=== PATIENT | male | born 1965 | race Caucasian/White ===

== ENCOUNTER 2022-02-01 18:09 | Inpatient (IN) | payer MEDICAID, SELFPAY ==
[2022-02-01 18:35] VITALS: BP 180/122; PULSE 88; RESP 16; TEMP 37.2; O2SAT 96; BMI 27.3
--- NOTE | 2022-02-01 19:10 | XRR_ITS ---
PROCEDURE INFORMATION: Exam: XR Chest Exam date and time: 02/01/2022 8:26 PM Age: 56 years old Clinical indication: Angina; Additional info: Cp TECHNIQUE: Imaging protocol: Radiologic exam of the chest. Views: 1 view. COMPARISON: No relevant prior studies available. FINDINGS: Lungs: Unremarkable. No consolidation. Pleural spaces: Unremarkable. No pleural effusion. No pneumothorax. Heart/Mediastinum: Unremarkable. No cardiomegaly. Bones/joints: Unremarkable. XR/XR chest 1V portable [id number] IMPRESSION: No acute findings.
--- NOTE | 2022-02-01 19:10 | ECG_ITS ---
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 Measurements Intervals [place] Rate: 81 P: 42 [place]: 147 QRS: 26 QRSD: 95 T: 7 QT: 322 QTc: 374 Interpretive Statements SINUS RHYTHM NONSPECIFIC T-WAVE ABNORMALITY INTERPRETATION BASED ON A DEFAULT AGE OF 40 YEARS No previous ECG available for comparison Electronically Signed On 02-02-2022 7:11:02 CDT by Wesley Dowd M.D. [id number]
[2022-02-01 20:05] LABS: Basophils # 0.1 10^3/uL (0.0-0.1); Basophils % 0.5 %; Eosinophils # 0.4 10^3/uL (0.0-0.8); Eosinophils % 4.2 %; Hematocrit 51.3 % (42.0-52.0); Hemoglobin 16.8 g/dL (11.7-16.6); Lymphocytes # 2.5 10^3/uL (0.8-4.8); Lymphocytes % 24.5 %; Mean Corpuscular HGB Conc 32.7 g/dL (30.0-36.0); Mean Corpuscular Volume 85.4 fl (80-94); Mean Platelet Volume 9.7 fL (7.4-10.4); Monocytes # 0.8 10^3/uL (0.2-0.9); Monocytes % 7.5 %; Neutrophils # 6.43 10^3/uL (1.8-7.7); Nucleated Red Blood Cells % 0 %; Platelet Count 298 10^3/cmm (130-400); Red Blood Count 6.01 10^6/uL (4.1-5.3); Red Cell Distribution Width 12.3 % (12.1-15.1); White Blood Count 10.2 10^3/uL (4.0-10.0)
[2022-02-01 20:10] VITALS: BP 183/135; PULSE 85; RESP 24; O2SAT 95
--- NOTE | 2022-02-01 20:23 | W.ED.CHESTPA ---
HPI - Chest Pain General: Chief Complaint: Chest Pain Stated Complaint: High BP-sent by dr Time Seen by Provider: 02/01/22 19:57 Course Vital Signs: Vital signs: Vital Signs Temperature 98.9 F 02/01/22 18:35 Pulse Rate 85 02/01/22 20:10 Respiratory Rate 24 H 02/01/22 20:10 Blood Pressure 183/135 02/01/22 20:10 Pulse Oximetry 95 02/01/22 20:10 Oxygen Delivery Me thod 02/01/22 20:10 MDM - Chest Pain Lab Data : 02/01/22 19:50 02/01/22 19:50 Laboratory Results WBC 10.2 10^3/uL (4.0-10.0) H 02/01/22 19:50 RBC 6.01 10^6/uL (4.1-5.3) H 02/01/22 19:50 Hgb 16.8 g/dL (11.7-16.6) H 02/01/22 19:50 Hct 51.3 % (42.0-52.0) 02/01/22 19:50 MCV 85.4 fl (80-94) 02/01/22 19:50 MCH 28.0 pg (28.0-34.0) 02/01/22 19:50 MCHC 32.7 g/dL (30.0-36.0) 02/01/22 19:50 RDW 12.3 % (12.1-15.1) 02/01/22 19:50 Plt Count 298 10^3/cmm (130-400) 02/01/22 19:50 MPV 9.7 fL (7.4-10.4) 02/01/22 19:50 Neut % (Auto) 63.0 % 02/01/22 19:50 Lymph % (Auto) 24.5 % 02/01/22 19:50 [place] % (Auto) 7.5 % 02/01/22 19:50 Eos % (Auto) 4.2 % 02/01/22 19:50 Baso % (Auto) 0.5 % 02/01/22 19:50 Neut # (Auto) 6.43 10^3/uL (1.8-7.7) 02/01/22 19:50 Lymph # (Auto) 2.5 10^3/uL (0.8-4.8) 02/01/22 19:50 [place] # (Auto) 0.8 10^3/uL (0.2-0.9) 02/01/22 19:50 Eos # (Auto) 0.4 10^3/uL (0.0-0.8) 02/01/22 19:50 Baso # (Auto) 0.1 10^3/uL (0.0-0.1) 02/01/22 19:50 Nucleated RBC % (auto) 0 % 02/01/22 19:50 Nucleated RBCs # 0.0 /100WBC 02/01/22 19:50 Discharge Plan Discharge Condition: Stable Prescriptions: No Action Advil 200 mg Tablet 800 mg PO Q6H PRN (Reason: Pain) Referrals: Joellen Dash PA-C [Primary Care Provider] - Coding Level of Care Code ED Demo Specialist for Concepcion Santiago
[2022-02-01] MEDS: amlodipine 10 mg Tablet PO (20:32)
[2022-02-01 20:37] LABS: Anion Gap 14.4 (5-19); Blood Urea Nitrogen 15 mg/dL (6-20); Calcium 9.7 mg/dL (8.5-10.5); Carbon Dioxide 25 mmol/L (22-29); Chloride 102 mmol/L (98-107); Glomerular Filtration Rate 77.9 mL/min (90-130); Glucose 98 mg/dL (65-115); Osmolality Calculated 285 mOsm/kg (285-295); Potassium 4.4 mmol/L (3.5-5.1); Sodium 137 mmol/L (136-145)
--- NOTE | 2022-02-01 20:37 | ED_ITS ---
HPI - General Adult General: Chief complaint: Chest Pain Stated complaint: High BP-sent by Time Seen by Provider: 02/01/22 19:57 History of Present Illness: Patient is a 56-year-old male with history of uncontrolled high blood pressure presenting to emergency room with intermittent chest pain for the last 2 weeks. Patient tells me last episode chest pain was on Tuesday when he was outside cutting trees. He tells me that he felt very lightheaded having crushing chest pain lasting for 45 minutes at a time associated with diaphoresis. Patient denies any nausea or vomiting, loss of consciousness or other focal complaints. Patient says the pain is not present when she is at rest. Patient denies smoking, family history of cardiac diseases, shortness of breath, exertional dyspnea or pleuritic chest pain. Patient also had, cough fever yesterday night. Patient was seen earlier today in urgent care for clinic and was told to come to the emergency room for further evaluation. In addition, patient was found to have severely elevated blood pressure. Patient tells me that he does not currently take any medication. Onset: 2 weeks ago Duration:2 weeks Location:home Severity: severe Associated symptoms: Reports chest pain; Deny dyspnea, nausea, rash, palpitations or vomiting Review of Systems Const: Denies: fever(s) or chills Eyes: Denies: change in vision ENMT: Denies: mouth pain Card: Reports: chest pain; Denies: palpitations Resp: Denies: dyspnea or non-productive cough GI: Denies: abdominal pain, nausea, vomiting or diarrhea : Denies: dysuria Musc: Denies: extremity pain Skin/Breast: Denies: rash or new lesions Neuro: Denies: weakness in extremities Psych: Reports: other (Normal mood) Fabian/Lymph: Denies: easy bruising PFS ED PFSH: Medical History Hypertension Social History Smoking and tobacco status: never smoked Alcohol intake: never Substance/Drug Use: never Physical Exam Const: COMMON NORMALS: alert HENMT: COMMON NORMALS: atraumatic HEAD & SCALP: atraumatic MOUTH: moist mucous membranes not abnormal Eye: COMMON NORMALS: EOMs intact bilaterally and conjunctivae normal CONJUNCTIVA: Yes conjunctivae normal Neck/C-Spine: COMMON NORMALS: full ROM and supple Resp: COMMON NORMALS: normal respiratory effort and clear to auscultation bilaterally AUSCULTATION: clear to auscultation bilaterally Cardio: COMMON NORMALS: regular rate RATE: regular rate OTHER: 2+ radial pulses b/l GI: COMMON NORMALS: Soft to palpation and non-tender PALPATION: Yes Soft to palpation OTHER: No focal TTP. NO guarding rebound, guarding, rigidity. No CVA tenderness to percussion. Neg Brito/Neg McBurney's point tenderness, no suprabupic tenderness to palpation. Extremity: COMMON NORMALS: full ROM Neuro: SENSORIUM/ORIENTATION: Yes alert MOTOR EXAM: No Abnormal motor strength present and Other motor observations present (no focal motor deficits) Psych: COMMON NORMALS: speech normal SPEECH: Yes normal speech MOOD & AFFECT: Yes euthymic mood Course Vital Signs: Vital signs: Vital Signs Temperature 98.9 F 02/01/22 18:35 Pulse Rate 85 02/01/22 20:10 Respiratory Rate 24 H 02/01/22 20:10 Blood Pressure 183/135 02/01/22 20:10 Pulse Oximetry 95 02/01/22 20:10 Oxygen Delivery Me thod 02/01/22 20:10 MDM - General Adult Medical Decision Making 56-year-old male with history of uncontrolled high blood pressure presenting to the emergency room for evaluation of shortness of breath, cough in the setting of chest pain in the last 2 weeks. Physical exam, patient is noted to have significantly elevated blood pressure 185/137. Rest of exam within normal limit. EKG is nonischemic. Initial troponin of 129. Patient is currently chest pain- free. Will evaluate for dissection. Patient received 10 mg amlodipine, 10 mg of hydralazine, aspirin with improvement in blood pressure. Patient is not complaining of chest pain. No other signs of endorgan damage. Creatinine w ithin normal limit. Patient will be admitted to hospital for hypertensive emergency and NSTEMI. CT is negative for any dissection. Patient received ASA and lovenox in the ED. Disposition: admission Lab Data : 02/01/22 19:50 02/01/22 19:50 Radiology Impressions Chest X-Ray 02/01/22 19:10 IMPRESSION: No acute findings. Laboratory Results WBC 10.2 10^3/uL (4.0-10.0) H 02/01/22 19:50 RBC 6.01 10^6/uL (4.1-5.3) H 02/01/22 19:50 Hgb 16.8 g/dL (11.7-16.6) H 02/01/22 19:50 Hct 51.3 % (42.0-52.0) 02/01/22 19:50 MCV 85.4 fl (80-94) 02/01/22 19:50 MCH 28.0 pg (28.0-34.0) 02/01/22 19:50 MCHC 32.7 g/dL (30.0-36.0) 02/01/22 19:50 RDW 12.3 % (12.1-15.1) 02/01/22 19:50 Plt Count 298 10^3/cmm (130-400) 02/01/22 19:50 MPV 9.7 fL (7.4-10.4) 02/01/22 19:50 Neut % (Auto) 63.0 % 02/01/22 19:50 Lymph % (Auto) 24.5 % 02/01/22 19:50 [place] % (Auto) 7.5 % 02/01/22 19:50 Eos % (Auto) 4.2 % 02/01/22 19:50 Baso % (Auto) 0.5 % 02/01/22 19:50 Neut # (Auto) 6.43 10^3/uL (1.8-7.7) 02/01/22 19:50 Lymph # (Auto) 2.5 10^3/uL (0.8-4.8) 02/01/22 19:50 [place] # (Auto) 0.8 10^3/uL (0.2-0.9) 02/01/22 19:50 Eos # (Auto) 0.4 10^3/uL (0.0-0.8) 02/01/22 19:50 Baso # (Auto) 0.1 10^3/uL (0.0-0.1) 02/01/22 19:50 Nucleated RBC % (auto) 0 % 02/01/22 19:50 Nucleated RBCs # 0.0 /100WBC 02/01/22 19:50 Sodium 137 mmol/L (136-145) 02/01/22 19:50 Potassium 4.4 mmol/L (3.5-5.1) 02/01/22 19:50 Chloride 102 mmol/L (98-107) 02/01/22 19:50 Carbon Dioxide 25 mmol/L (22-29) 02/01/22 19:50 Anion Gap 14.4 (5-19) 02/01/22 19:50 BUN 15 mg/dL (6-20) 02/01/22 19:50 Creatinine 1.0 mg/dL (0.7-1.2) 02/01/22 19:50 GFR Calculation 77.9 mL/min (90-130) L 02/01/22 19:50 Glucose 98 mg/dL (65-115) 02/01/22 19:50 Calculated Osmolality 285 mOsm/kg (285-295) 02/01/22 19:50 Calcium 9.7 mg/dL (8.5-10.5) 02/01/22 19:50 Troponin T Baseline 123 ng/L (0-15) H* 02/01/22 19:50 SARS-CoV-2 Ag (Rapid) Negative (Negative) 02/01/22 20:34 Imaging Data Other Imaging: Radiologist's impression: [email or web address] [address] XRay Report Signed Patient: Anant Rowland Unit #: [id number] : 1965 Age/Sex: 56 / M ADM Date: 02/01/22 Loc: ER Room/Bed: Attending Dr: Ordering Provider/Ordering MD: Nvaid Harris MD Date of Service: 02/01/22 Procedure(s): XR chest 1V portable [id number] Accession Number(s): [id number] Report Number: [id number] PROCEDURE INFORMATION: Exam: XR Chest Exam date and time: 02/01/2022 8:26 PM Age: 56 years old Clinical indication: Angina; Additional info: Cp TECHNIQUE: Imaging protocol: Radiologic exam of the chest. Views: 1 view. COMPARISON: No relevant prior studies available. FINDINGS: Lungs: Unremarkable. No consolidation. Pleural spaces: Unremarkable. No pleural effusion. No pneumothorax. Heart/Mediastinum: Unremarkable. No cardiomegaly. Bones/joints: Unremarkable. XR/XR chest 1V portable [id number] IMPRESSION: No acute findings. ? Dictated By: Slick Del Castillo DO Signed By: Slick Del Castillo DO Signed Date/Time: 02/01/222135 DD/ 25 Discharge Plan Discharge Patient Disposition: Admitted As Inpatient Admit Provider: Mary Watts Clinical Impression: Hypertensive emergency, Non-ST elevation WI (NSTEMI) Condition: Stable Coding Level of Care Code ED Foreign Policy Officer for Chg Fwd Exam Comprehensive
[2022-02-01 20:57] LABS: Troponin(5th) Baseline 123 ng/L (0-15)
--- NOTE | 2022-02-01 21:04 | CTR_ITS ---
PROCEDURE INFORMATION: Exam: CTA Chest With Contrast CTA Abdomen and Pelvis With Contrast Exam date and time: 02/01/2022 9:43 PM Age: 56 years old Clinical indication: Abnormal findings; Abnormal diagnostic tests; Other: Elevated troponin; Fever and shortness of breath; Abnormal lab test; Shortness of breath and other: Hypertensive; Patient HX: C/O SOB with fever. Hypertensive on monitor. Elevated baseline troponin of 123. ; Additional info: Chest pain TECHNIQUE: Imaging protocol: Computed tomographic angiography of the chest with contrast. Computed tomographic angiography of the abdomen and pelvis with contrast. 3D rendering (Not supervised by radiologist): MIP and/or 3D reconstructed images were created by the technologist. Radiation optimization: All CT scans at this facility use at least one of these dose optimization techniques: automated exposure control; mA and/or kV adjustment per patient size (includes targeted exams where dose is matched to clinical indication); or iterative reconstruction. Contrast material: OMNI 350; Contrast volume: 95 ml; Contrast route: INTRAVENOUS (IV); COMPARISON: CR (CHEST, ) 02/01/2022 8:26 PM RADIATION DOSE METRICS: Total DLP (mGy-cm): 1612.48 FINDINGS: VASCULATURE: Pulmonary arteries: Normal. No pulmonary emboli. Aorta: No aortic aneurysm. No aortic dissection. Celiac trunk and mesenteric arteries: No occlusion or significant stenosis. Renal arteries: No occlusion or significant stenosis. Right iliac arteries: No occlusion or significant stenosis. Left iliac arteries: No occlusion or significant stenosis. CHEST: Lungs: Bibasilar atelectasis. Pleural spaces: Unremarkable. No pneumothorax. No pleural effusion. Heart: Coronary artery atherosclerotic calcifications. ABDOMEN AND PELVIS: Liver: No mass. Gallbladder and bile ducts: Cholelithiasis. Pancreas: Unremarkable. No mass. No ductal dilation. Spleen: Unremarkable. No splenomegaly. Adrenal glands: Unremarkable. No mass. Kidneys and ureters: Several bilateral renal cysts. Stomach and bowel: Diverticulosis without diverticulitis. Constipation. Appendix: No evidence of appendicitis. Intraperitoneal space: Unremarkable. No free air. No significant fluid collection. Urinary bladder: Unremarkable. No mass. Reproductive: Prostate gland enlarged. Lymph nodes: Scattered prominent mediastinal lymph nodes measuring up to 10 mm short axis, nonspecific. Bones/joints: Unremarkable. No acute fracture. Soft tissues: Unremarkable. CT/CT angio chest abdomen pelvis IMPRESSION: 1. Negative for pulmonary embolus or acute inflammatory process in the abdomen or pelvis. 2. Coronary artery atherosclerotic calcifications. 3. Cholelithiasis. 4. Several bilateral renal cysts. 5. Diverticulosis without diverticulitis. 6. Prostate gland enlarged. 7. Bibasilar atelectasis. 8. Scattered prominent mediastinal lymph nodes measuring up to 10 mm short axis, nonspecific. 9. Constipation. COMMENTS: Consistent with the [employer]'s Incidental Findings Committee white paper (J Am Chirag Radiol 2018): Any incidental renal lesion less than 1 cm or classified as too small to characterize, or any incidental cystic renal lesion characterized as simple-appearing, is likely benign. No follow-up imaging is recommended for these lesions per consensus recommendations based on imaging criteria.
[2022-02-01 21:05] LABS: SARS Covid-2 Antigen Negative (Negative)
[2022-02-01] MEDS: aspirin 325 mg Tablet PO (21:10)
[2022-02-01] MEDS: hyDRALAzine 20 mg/mL INJ 1 mL 10 MG IVP ×2 (21:10→23:57)
[2022-02-01] MEDS: iohexol 350 mg/mL 100 mL Btl IV (21:49)
[2022-02-01 22:15] VITALS: BP 155/102; PULSE 89; RESP 14; O2SAT 96
[2022-02-01 22:49] LABS: Troponin 5 2HR Delta 2.2 ABS# (0-10)
[2022-02-01 22:50] LABS: Troponin 5 2HR 125.2 ng/L (0-15)
[2022-02-01 22:57] VITALS: BP 195/111; PULSE 78; RESP 17; TEMP 37.1; O2SAT 97
--- NOTE | 2022-02-01 23:10 | P.HP_ITS ---
Providers/Chief Complaint Admitting Physician: Mary Watts MD Primary Care Provider: Joellen Dash Chief Complaint: High BP-sent by History of Present Illness Anant Rowland is a 56 year old male with past medical history of hypertension, not on any medications at home presented to the ER complaining of intermittent chest pain/chest pressure for last 2 weeks. 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 It lasted for few hours and then went away. At that time he checked his blood pressure and it was quite high 190 over something. Later on that week he was staring out her kitchen floor for somebody and he again experienced chest pressure in the middle of his chest substernal area at times radiating to his jaw associated with diaphoresis around the same time. This episode lasted 30 to 40 minutes. He says he has been to urgent care with a cold and having a runny nose today and he was asked to go to the ER for further evaluation. He states him and his family all had COVID last month but since then has not had any other sick contacts. He has never had this kind of chest pain before. Chest pain is not reproducible to palpation. It has been intermittent mostly associated with exertion. He does not really report any gross shortness of breath. Denies family history of cardiac diseases, other medical problems. At this time denies shortness of breath, exertional dyspnea or pleuritic chest pain. He has never had a cardiac work-up before. Denies a history of DVT or PE. present at bedside. He states that she wanted to bring him in sooner but he did not and kept putting it off. At this time he is chest pain-free. Review of systems otherwise negative except noted above in HPI. ED course: Blood pressure on arrival 180/135. Initial troponin 129. Patient was given 10 of amlodipine, 10 mg of hydralazine, aspirin with improvement in blood pressure. Chest x-ray with no acute findings. CTA chest abdomen pelvis has been ordered. It is pending at this time. Denies smoking, or drinking. Lives at home with . Medications/Allergies Home Medications Medication Instructions Recorded Confirmed Last Taken Type ibuprofen 200 mg tablet (Advil) 800 mg PO Q6H PRN Pain 02/01/22 02/01/22 02/01/22 History Allergies Allergy/AdvReac Type Severity Reaction Status Date / Time No Known Allergies Allergy Unverified 02/01/22 20:26 PFSH Acute PFSH: Medical History Hypertension Social History Smoking and tobacco status: never smoked Alcohol intake: never Substance/Drug Use: never Vitals/I&O/Wt Last Vital Signs Temp 98.7 F 02/01/22 22:57 Pulse 78 02/01/22 22:57 Resp 17 02/01/22 22:57 BP 195/111 02/01/22 22:57 Pulse Ox 97 02/01/22 22:57 O2 Del Method 02/01/22 22:15 Weight last 48 hrs Weight 83.915 kg Physical Exam Narrative: General: Alert oriented x3, patient seen sitting up in bed appearing comfortable at this time on room air HEENT: Normocephalic, atraumatic, EOMI, breathing normally Cardio: Regular rate rhythm, normal S1-S2, no JVD Respiratory: Clear to auscultation bilaterally with diminished at bases GI: Abdomen soft, nontender, nondistended, bowel sounds + Behavior: Appropriate and cooperative Extremities: No lower extremity edema noted Data : 02/01/22 19:50 02/01/22 19:50 A&P Assessment and plan (1) Hypertensive emergency: Status: Acute (2) Non-ST elevation RI (NSTEMI): Status: Acute Plan #Hypertensive urgency #Chest pain #NSTEMI #Constipation #Mild leukocytosis - Baseline trop 123, rest pending - We will lower blood pressure gradually. Not to lower more than 25% for 6 hours. - Check hemoglobin A1c, BNP, lipid panel, TSH, procalcitonin ? Start aspirin, Plavix, metoprolol, statin, therapeutic Lovenox - Start lisinopril in AM. - CTA chest abd pelvis ordered in ER is pending at this time. - Check EKG in a.m. - Check echo ? Please consult cardiology in a.m. - Check covid, resp panel - Doc/senna for constipation - Check urine drug screen - Wbc [id number]. Will monitor for now. Possibly due to stress vs. viral infection. Hold off on starting abx at this time.Will check procal Full Code DVT PPX: on therapeutic lovenox Attestations Medical Necessity Statement*: Will Cross > 2 midnight stay for mgmt of hypertensive urgency and NSTEMI. Coding Level of Care Code Acute Locker Room Supervisor for Concepcion Santiago Diagnoses Hypertensive emergency I16.1 Non-ST elevation RI (NSTEMI) I21.4
[2022-02-01] MEDS: enoxaparin 80 mg/0.8 mL Syringe SUBCUT (23:28)
[2022-02-01 23:37] VITALS: PULSE 78; RESP 17; TEMP 37.1; O2SAT 97
[2022-02-01 23:55] VITALS: PULSE 86
[2022-02-02] VITALS (13 sets, daily range): BP systolic 129–155; BP diastolic 83–97; PULSE 65–102; RESP 15–18; TEMP 36.4–37; O2SAT 94–97
--- NOTE | 2022-02-02 01:16 | USCV_ITS ---
Anant Rowland Age: 56 Gender: M : 1965 Exam Date: 02/02/2022 01:34 Ordering Phys: Mary Watts MD Technologist: Exam [place] [facility] [place]: Chest pain, HTN. No history of cardiac intervention per patient BP: 142 / 87 HR: 92 Rhythm: Sinus Technical Quality: Adequate MEASUREMENTS (Male / Female) Normal Values 2D ECHO LV Diastolic Diameter PLAX 4.1 cm 4.2 - 5.9 / 3.9 - 5.3 cm LV Systolic Diameter PLAX 2.5 cm IVS Diastolic Thickness 1.2 cm 0.6 - 1.0 / 0.6 - 0.9 cm IVS Systolic Thickness 1.4 cm LVPW Diastolic Thickness 1.2 cm 0.6 - 1.0 / 0.6 - 0.9 cm LVPW Systolic Thickness 1.6 cm LVOT Diameter 2.0 cm LV Ejection Fraction 2D Teich 70.4 % LV Ejection Fraction MOD 2C 58.5 % LV Ejection Fraction 2C AL 57.8 % LA Diameter 3.5 cm LA Width 3.0 cm LA Height 4.7 cm RA Width 2.4 cm RA Height 4.3 cm Aorta at Sinotubular Diameter 3.1 cm IVC Diameter 1.3 cm M-MODE Aortic Annulus Diameter 3.0 cm LA Ao Ratio MM 1.3 MV E Point Septal Separation 0.3 cm DOPPLER AV Peak Velocity 106.0 cm/s LVOT Peak Velocity 94.0 cm/s AV Area Cont Eq vti 2.9 cm squared AV Area Cont Eq pk 2.6 cm squared MV Area PHT 3.1 cm squared Mitral E to A Ratio 0.6 MV E' Velocity 29.0 cm/s Mitral E to MV E' Ratio 11.4 Mitral E to LV E' Lateral Ratio 11.1 Mitral E to LV E' Septal Ratio 11.9 TR Peak Velocity 265.3 cm/s TR Peak Gradient 28.2 mmHg TV Peak E Velocity 64.0 cm/s Right Atrial Pressure 5.0 mmHg Pulmonary Artery Systolic Pressu 33.2 mmHg PV Peak Velocity 103.0 cm/s RV Acceleration Time 0.1 s RV Ejection Time 0.3 s RV AcT/ET 0.4 FINDINGS Left Ventricle Normal left ventricular size, systolic function and mildly increased wall thickness, with no regional wall motion abnormalities. Left ventricular ejection fraction is estimated at 65 %. Grade I diastolic dysfunction (abnormal relaxation filling pattern), normal to mildly elevated filling pressures. Right Ventricle Normal right ventricular size and systolic function. Right ventricular systolic pressure 32 mmHg. Right Atrium Normal right atrial size. Right atrial pressure estimated at 3 mmHg. Left Atrium Normal left atrial size. Mitral Valve Structurally normal mitral valve. No mitral valve stenosis. No mitral valve regurgitation. Aortic Valve Structurally normal trileaflet aortic valve. No aortic valve stenosis. No aortic valve regurgitation. Tricuspid Valve Structurally normal tricuspid valve. No tricuspid valve stenosis. Trace tricuspid valve regurgitation. Pulmonic Valve Structurally normal pulmonic valve. No pulmonary valve stenosis. No significant pulmonary valve regurgitation. Pericardium No pericardial effusion. Aorta Normal size aortic root and proximal ascending aorta. IVC Normal IVC dimension with >50% respiratory change of the inferior vena cava. CONCLUSIONS 1. Normal left ventricular size, systolic function and mildly increased wall thickness, with no regional wall motion abnormalities. Left ventricular ejection fraction is estimated at 65 %. Grade I diastolic dysfunction (abnormal relaxation filling pattern), normal to mildly elevated filling pressures. 2. Normal right ventricular size and systolic function. 3. Pulmonary artery pressure estimated at 32 mmHg. 4. No significant valvular abnormality. 5. No prior similar studies to compare. Kary Saleh MD (Electronically Signed) Final Date: 02 February 2022 10:51 S
[2022-02-02 01:35] LABS: Estmated Average Glucose 117; Hemoglobin A1C 5.7 % (4.0-6.0)
[2022-02-02 01:43] LABS: NT Pro B Type Natriuretic Pept 237 pg/mL (0-125); Procalcitonin 0.06 ng/mL (0-0.5); Thyroid Stimulating Hormone 1.53 uIU/mL (0.27-4.20)
[2022-02-02] MEDS: famotidine 20 mg/2 mL INJ IVP ×2 (01:45→13:16)
[2022-02-02] MEDS: clopidogrel 300 mg Tablet 600 MG PO (01:45)
[2022-02-02 01:54] LABS: Chol HDL Ratio 5.11 mg/dL (1.0-5.00); Cholesterol 194 mg/dL (0-200); HDL Cholesterol 38 mg/dL (60-100); LDL Cholesterol Calculated 132 mg/dL (50-129); LDL HDL Ratio 3.47 RATIO (0.00-3.22); Triglycerides 119 mg/dL (0-150)
[2022-02-02 02:18] LABS: Basophils # 0.1 10^3/uL (0.0-0.1); Basophils % 0.5 %; Eosinophils # 0.4 10^3/uL (0.0-0.8); Eosinophils % 3.9 %; Hematocrit 49.8 % (42.0-52.0); Hemoglobin 16.6 g/dL (11.7-16.6); Lymphocytes # 3.5 10^3/uL (0.8-4.8); Lymphocytes % 31.8 %; Mean Corpuscular HGB Conc 33.3 g/dL (30.0-36.0); Mean Corpuscular Hemoglobin 28.1 pg (28.0-34.0); Mean Corpuscular Volume 84.3 fl (80-94); Mean Platelet Volume 9.6 fL (7.4-10.4); Monocytes % 9.4 %; Neutrophils # 5.95 10^3/uL (1.8-7.7); Neutrophils % 54.2 %; Nucleated Red Blood Cells % 0 %; Platelet Count 287 10^3/cmm (130-400); Red Blood Count 5.91 10^6/uL (4.1-5.3); Red Cell Distribution Width 12.4 % (12.1-15.1)
--- NOTE | 2022-02-02 02:23 | ECG_ITS ---
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 Measurements Intervals [place] Rate: 86 P: 46 [place]: 158 QRS: 19 QRSD: 101 T: -5 QT: 350 QTc: 419 Interpretive Statements SINUS RHYTHM NONSPECIFIC T-WAVE ABNORMALITY Compared to ECG 02/02/2022 00:01:50 No significant changes Electronically Signed On 02-03-2022 6:39:51 CDT by Riya Angeles M.D. [email or web address]
[2022-02-02 02:37] LABS: Alanine Aminotransferase 23 U/L (0-41); Albumin Level 3.9 g/dL (3.5-5.2); Alkaline Phosphatase 109 IU/L (40-130); Anion Gap 15.8 (5-19); Aspartate Amino Transferase 21 U/L (0-40); Blood Urea Nitrogen 11 mg/dL (6-20); Calcium 9.6 mg/dL (8.5-10.5); Carbon Dioxide 25 mmol/L (22-29); Chloride 100 mmol/L (98-107); Globulin 3.6 g/dL (1.3-4.6); Glomerular Filtration Rate 87.9 mL/min (90-130); Glucose 124 mg/dL (65-115); Osmolality Calculated 285 mOsm/kg (285-295); Potassium 3.8 mmol/L (3.5-5.1); Sodium 137 mmol/L (136-145); Total Bilirubin 0.4 mg/dL (0.15-1.2); Total Protein 7.5 g/dL (6.6-8.7)
[2022-02-02 02:42] LABS: Troponin 5 6HR 151.2 ng/L (0-15); Troponin 5 6HR Delta 28.2 ng/L (0-12)
[2022-02-02] MEDS: acetaminophen 325 mg Tablet 650 MG PO (04:53)
[2022-02-02 04:59] LABS: Add Urine Microscopic? NO; Charge for UA Resulting for Rev
[2022-02-02 05:03] LABS: Bilirubin Urine Neg (Negative); Blood Urine Neg (Negative); Glucose Urine UA Norm (Normal); Ketones Urine Negative (Negative); Leukocyte Esterase Urine Negative (Negative); Nitrate Urine Negative (Negative); Protein Urine Neg (Negative); Specific Gravity, Urine 1.005 (1.005-1.030); Urine Appearance Clear (CLEAR); Urine Color Yellow (Yellow); Urobilinogen Urine 1 mg/dL (Negative); pH Urine 6.5 (5-7)
[2022-02-02 05:09] LABS: Amphetamines Screen Urine Negative (Negative); Barbiturates Screen Urine Negative (Negative); Benzodiazepines Screen Urine Negative (Negative); Cocaine Screen Urine Negative (Negative); Opiate Screen Urine Negative (Negative); PCP Screen Urine Negative (Negative); THC Screen Urine Negative (Negative)
--- NOTE | 2022-02-02 06:03 | ECG_ITS ---
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 Measurements Intervals [place] Rate: 83 P: 25 MT: 156 QRS: 12 QRSD: 92 T: -15 QT: 341 QTc: 403 Interpretive Statements SINUS RHYTHM NONSPECIFIC T-WAVE ABNORMALITY Compared to ECG 02/01/2022 18:33:45 No significant changes Electronically Signed On 02-03-2022 6:38:13 CDT by Riya Angeles M.D. [id number]
[2022-02-02] MEDS: clopidogrel 75 mg Tablet PO (08:32)
[2022-02-02] MEDS: docusate sodium 100 mg Capsule PO ×2 (08:32→17:16)
[2022-02-02] MEDS: aspirin 81 mg EC Tablet PO (08:32)
[2022-02-02] MEDS: metoprolol tartrate 25 mg Tablet PO (08:34)
--- NOTE | 2022-02-02 10:35 | PM.CONSULT ---
Providers/Reason For Consult Consulting Physician/Specialty*: Dr. Saleh, Cardiology Reason for Consult*: Chest pain, elevated troponin Attending Physician: Travis Gasca MD Primary Care Provider: Joellen Dash History of Present Illness History of Present Illness Anant Rowland is a 56 year old male with no h/o [place], stroke, TIA, HLD, DM-2. He is a non smoker/ tobacco chewer and denies any family h/o CAD. He has some kind of lung problem for which he was prescribed inhaler after PFT 6 years back. He also had a stress test 6 years back that was normal. He has known he has high blood pressure but d/t lack of insurance he has not been taking meds/ seeing PCP. He complains of 2 episodes of chest pain that happened with exertion, retrostrenal in location and lasted 3-4 hours. Last episode was Tuesday. He complains of two episodes of fever Tuesday, Tuesday and episode of loose stool. He came to ER for further evaluation. EKG with sinus rhythm and non specific T wave inversion in lead III. Troponin T 123-> 125--> 151. Patient is CP free and echo with normal LV function with no RWMA. BP 180/122 mm Hg on arrival and BP 190/100 with first episode of chest pain a week or so ago. Review of Systems General: Reports: 10 or more systems reviewed and unremarkable except in HPI and below Const: Reports: fever(s); Denies: chills Eyes: Denies: change in vision ENMT: Denies: mouth pain Card: Reports: chest pain; Denies: palpitations Resp: Denies: dyspnea or non-productive cough GI: Reports: diarrhea; Denies: abdominal pain, nausea, vomiting, hematochezia or melena : Denies: dysuria Musc: Denies: extremity pain Skin/Breast: Denies: rash or new lesions Neuro: Denies: weakness in extremities Psych: Reports: other (Normal mood) Fabian/Lymph: Denies: easy bruising Medications/Allergies Home Medications Medication Instructions Recorded Confirmed Last Taken Type ibuprofen 200 mg tablet (Advil) 800 mg PO Q6H PRN Pain 02/01/22 02/01/22 02/01/22 History Allergies Allergy/AdvReac Type Severity Reaction Status Date / Time No Known Allergies Allergy Unverified 02/01/22 20:26 Current Medications Generic Name Dose Route Start Last Admin Trade Name Gavin PRN Reason Stop Dose Admin Acetaminophen 650 mg 02/02/22 01:03 02/02/22 04:53 Acetaminophen 325 Mg Tablet PO 650 mg Q6H PRN Administration Mild/Mod Pain Or Temp >/= 101 Aspirin 81 mg 02/02/22 09:00 02/02/22 08:32 Aspirin 81 Mg Ec Tablet PO 81 mg DAILY BURKE Administration Clopidogrel Bisulfate 75 mg 02/02/22 09:00 02/02/22 08:32 Clopidogrel 75 Mg Tablet PO 75 mg DAILY BURKE Administration Docusate Sodium 100 mg 02/02/22 09:00 02/02/22 08:32 Docusate Sodium 100 Mg Capsule PO 100 mg BID BURKE Administration Enoxaparin Sodium 80 mg 02/01/22 22:15 02/01/22 23:28 Enoxaparin 80 Mg/0.8 Ml Syringe SUBCUT 80 mg Q12H BURKE Administration Famotidine 20 mg 02/02/22 01:15 02/02/22 01:45 Famotidine 20 Mg/2 Ml Inj IVP 20 mg Q12H BURKE Administration Metoprolol Tartrate 25 mg 02/02/22 09:00 02/02/22 08:34 Metoprolol Tartrate 25 Mg Tablet PO 25 mg BID@0900,2100 BURKE Administration PFSH Acute PFSH: Medical History (Updated 02/02/22 @ 19:13 by Kary Saleh MD) Elevated troponin Hypertension Social History Smoking and tobacco status: never smoked Alcohol intake: never Substance/Drug Use: never Vitals/I&O/Wt Last Vital Signs Temp 97.6 F 02/02/22 08:00 Pulse 68 02/02/22 10:25 Resp 15 02/02/22 08:00 BP 149/92 02/02/22 08:00 Pulse Ox 96 02/02/22 10:25 O2 Del Method 02/02/22 10:25 Weight last 48 hrs Weight 185 lb Physical Exam Narrative: Gen: NAD,ABAN HEENT: EOMI, NO pallor, rub or gallop RS: CTAB/L, No wheezes or rales CVS: S1, S2 +, No murmur, rub or gallop Ext: No edema, cyanosis or clubbing PA: soft. NTND, 2+ BS MANAGER RECRUITMENT: AAOx 3, No FND Psych: Normal mood and affect Data : 02/02/22 02:09 02/02/22 02:09 Micro: Microbiology 02/02/22 06:08 Blood Culture - Preliminary Blood SPECIMEN COLLECTED A&P Assessment and plan (1) Chest pain: 2 episodes with no recent spells Status: Acute (2) Hypertension: started on lisinopril and amlodipine -BP improved Status: Acute (3) Non-ST elevation [place] (NSTEMI): type 1 vs type 2 in setting of elevated BP -No significant EKG chnages and normal LV function with no RWMA - CAD risk factor of untreated HTN -Plan for stress test and further changes based on that. -May continue ACS protocol in the interim. Status: Acute Plan Fever : at home, none documeted in hospital Cholelithiasis. Several bilateral renal cysts. Diverticulosis without diverticulitis. Prostate gland enlarged. Consult Attestations Medical Necessity Statement: Thank you for allowing me to participate in patient's care. Please feel free to call with questions or concerns. Time Spent in Patient Care: 16 - 35 minutes Coding Level of Care Code Acute Sports Marketing Specialist for Chg Fwd Diagnoses Chest pain R07.9 Hypertension I10 Non-ST elevation [place] (NSTEMI) I21.4
[2022-02-02] MEDS: enoxaparin 80 mg/0.8 mL Syringe SUBCUT ×2 (10:36→21:22)
--- NOTE | 2022-02-02 11:40 | ECG_ITS ---
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 Interpretive Statements NAME OF STUDY: LEXISCAN SESTAMIBI STRESS TEST INDICATION: Chest Pain PROCEDURE: At the baseline, the blood pressure was 134/104 mmHg with a heart rate of 69 beats per minute. The electrocardiogram showed normal sinus rhythm, normal axis with nonspecific T wave inversion in lead III and aVF. The Lexiscan was infused over a period of 20 seconds. A total of 0.4 milligrams of Lexiscan was infused. The stress phase was continued for a total of 5 minutes. Heart rate at the end of the stress phase was 92 bpm with a blood pressure of 164/95 mmHg. The EKG at the peak infusion revealed sinus rhythm with no significant ST-T wave changes. Sestamibi was injected 20 seconds after the Lexiscan infusion. Blood pressure at the end of the recovery phase was 162/100 mmHg with a heart rate of 86 beats per minute. CONCLUSION: 1. No significant EKG changes with the LexiScan infusion. 2. No LexiScan induced chest pain or cardiac arrhythmia. 3. Normal blood pressure and heart rate response. 4. Sestamibi/sestamibi perfusion scan pending; see separate report. Electronically Signed On 02-03-2022 16:40:06 CDT by Kary Saleh M.D. [email or web address]
--- NOTE | 2022-02-02 13:40 | P.PN_ITS ---
Subjective Subjective: Dr. 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 No active discomfort Currently on ACS protocol Vitals/I&O/Wt Last Vital Signs Temp 97.5 F L 02/02/22 11:53 Pulse 67 02/02/22 11:53 Resp 15 02/02/22 11:53 BP 155/97 02/02/22 11:53 Pulse Ox 97 02/02/22 11:53 O2 Del Method 02/02/22 11:53 02/01/22 02/02/22 02/02/22 22:59 06:59 14:59 Intake Total 125 / 125 Balance 125 / 125 Weight last 48 hrs Weight 83.915 kg Physical Exam Narrative: Patient laying flat Awake and alert Euvolemic S1, S2 No murmur Currently doing well on room air Nonfocal neuro exam Hypertensive Pleasant cooperative Abdomen soft Data : 02/02/22 02:09 02/02/22 02:09 Micro: Microbiology 02/02/22 06:08 Blood Culture - Preliminary Blood SPECIMEN COLLECTED A&P Assessment and plan (1) Hypertensive emergency: Status: Acute (2) Non-ST elevation [place] (NSTEMI): Status: Acute Plan NSTEMI Continues his protocol Plan for stress test tomorrow morning as per Dr. Levine's recommendation Patient will be n.p.o. from midnight No active chest pain or shortness of breath Continue dual antiplatelet therapy COVID-19 related myocarditis? Check D-dimer Patient is full code N.p.o. for midnight Stress test tomorrow Dr. Levine consulted for NSTEMI Attestations Medical Necessity Statement*: Continue medical management Time Spent in Patient Care: 35 Coding Level of Care Code Acute Marketing Services Coordinator for [facility] Fwd Diagnoses Hypertensive emergency I16.1 Non-ST elevation [place] (NSTEMI) I21.4
--- NOTE | 2022-02-02 18:47 | PC.NURSE ---
[facility] report given to Michell PANCHAL at this time
[2022-02-02] MEDS: atorvastatin 40 mg Tablet 80 MG PO (21:21)
[2022-02-03] VITALS (8 sets, daily range): BP systolic 125–162; BP diastolic 80–100; PULSE 66–91; RESP 14–18; TEMP 36.6–36.8; O2SAT 94–96
[2022-02-03 05:28] LABS: Basophils # 0.1 10^3/uL (0.0-0.1); Basophils % 0.5 %; Eosinophils # 0.5 10^3/uL (0.0-0.8); Eosinophils % 5.1 %; Hematocrit 49.4 % (42.0-52.0); Hemoglobin 16.4 g/dL (11.7-16.6); Lymphocytes # 3.2 10^3/uL (0.8-4.8); Lymphocytes % 34.4 %; Mean Corpuscular HGB Conc 33.2 g/dL (30.0-36.0); Mean Corpuscular Volume 84.3 fl (80-94); Mean Platelet Volume 9.8 fL (7.4-10.4); Monocytes # 0.9 10^3/uL (0.2-0.9); Neutrophils # 4.65 10^3/uL (1.8-7.7); Neutrophils % 49.8 %; Nucleated Red Blood Cells % 0 %; Platelet Count 282 10^3/cmm (130-400); Red Blood Count 5.86 10^6/uL (4.1-5.3); Red Cell Distribution Width 12.6 % (12.1-15.1); White Blood Count 9.4 10^3/uL (4.0-10.0)
[2022-02-03 05:42] LABS: D Dimer 0.34 ug/mIFEU (0-0.59)
[2022-02-03 06:02] LABS: Alanine Aminotransferase 19 U/L (0-41); Alkaline Phosphatase 98 IU/L (40-130); Anion Gap 11.2 (5-19); Aspartate Amino Transferase 17 U/L (0-40); Blood Urea Nitrogen 18 mg/dL (6-20); Calcium 9.4 mg/dL (8.5-10.5); Carbon Dioxide 26 mmol/L (22-29); Chloride 104 mmol/L (98-107); Globulin 3.1 g/dL (1.3-4.6); Glomerular Filtration Rate 77.9 mL/min (90-130); Glucose 98 mg/dL (65-115); Magnesium 2.1 mg/dL (1.7-2.3); Osmolality Calculated 286 mOsm/kg (285-295); Potassium 4.2 mmol/L (3.5-5.1); Sodium 137 mmol/L (136-145); Total Bilirubin 0.5 mg/dL (0.15-1.2); Total Protein 7.1 g/dL (6.6-8.7)
[2022-02-03] MEDS: regadenoson 0.4 Mg/5 ml Syringe IVP (07:17)
[2022-02-03] MEDS: amlodipine 10 mg Tablet PO (08:51)
[2022-02-03] MEDS: clopidogrel 75 mg Tablet PO (08:51)
[2022-02-03] MEDS: aspirin 81 mg EC Tablet PO (08:51)
[2022-02-03] MEDS: docusate sodium 100 mg Capsule PO (08:51)
[2022-02-03] MEDS: lisinopril 10 mg Tablet PO (08:51)
--- NOTE | 2022-02-03 11:40 | NMCV_ITS ---
NM jimmy perf SPECT r/s* [id number] Anant Rowland Age: 56 Gender: M : 1965 Exam Date: 02/03/2022 11:40 Ordering Phys: Travis Gasca MD Technologist: MAHIN Herring Exam Location: [facility] Indications: Chest pain STRESS TEST Please see separate stress test report in [facility] for full findings IMAGE PROTOCOL Rest/Stress 1 Lexiscan Day Radiopharmaceutical Dose (mCi) Administration Site Administered by Rest: Tc-99m 10.7 IV MAHIN Herring Sestamibi Stress:Tc-99m 32.9 IV MAHIN Herring Sestamibi Rest: 03-Feb-2022 60 Discovery 630 Stress: 03-Feb-2022 45 Discovery 630 0.4mg Lexiscan. Images obtained in supine and prone position. SPECT RESULTS Technical Quality: Good Raw Data Analysis: Normal Image Corrections: No attenuation or motion correction applied Summed Stress Score: 0 Summed Rest Score: 2 Summed Difference Score: 0 PERFUSION FINDINGS Small sized perfusion abnormality of mild severity of mid inferior and mid inferolateral sigala on rest images with improved tracer uptake in stress and prone images. This is suggestive of attenuation artifact. FUNCTIONAL RESULTS (calculated via Gated SPECT) Stress Image LV EF (%): 74 Stress EDV (mL):86 TID: 0.82 Stress ESV (mL):22 FUNCTIONAL FINDINGS: The left ventricle is normal in size. Transient Ischemia Dilatation of 0.82. The left ventricular ejection fraction is normal with a value of 74%. There is normal left ventricular wall thickening with no regional wall motion abnormality. Normal end diastolic and end systolic volumes. IMPRESSIONS 1. Myocardial perfusion imaging is normal. 2. Overall left ventricular systolic function is normal without regional wall motion abnormalities, LVEF=74%. 3. EKG portion of the study will be reported separately. 4. No prior similar studies to compare. Kary Saleh MD (Electronically Signed) Final Date: 03 February 2022 11:22 S
--- NOTE | 2022-02-03 11:46 | PM.PN ---
Subjective Medications: Reviewed: Yes Vitals/I&O/Wt Last Vital Signs Temp 98.2 F 02/03/22 08:00 Pulse 73 02/03/22 08:00 Resp 16 02/03/22 08:00 BP 147/99 02/03/22 08:00 Pulse Ox 96 02/03/22 08:00 O2 Del Method 02/03/22 08:00 02/02/22 02/03/22 02/03/22 22:59 06:59 14:59 Intake Total 365 / 490 360 / 360 Balance 365 / 490 360 / 360 Weight last 48 hrs Weight 185 lb Physical Exam Narrative: Gen: NAD,ABAN HEENT: EOMI, NO pallor, rub or gallop RS: CTAB/L, No wheezes or rales CVS: S1, S2 +, No murmur, rub or gallop Ext: No edema, cyanosis or clubbing PA: soft. NTND, 2+ BS TRAVELING OPERATOR: AAOx 3, No FND Psych: Normal mood and affect Data : 02/03/22 05:14 02/03/22 05:14 Micro: Microbiology 02/02/22 06:10 Blood Culture - Preliminary Blood SPECIMEN COLLECTED 02/02/22 06:08 Blood Culture - Preliminary Blood NEGATIVE TO DATE A&P Assessment and plan (1) Chest pain: 2 episodes with no recent spells Status: Acute (2) Hypertension: started on lisinopril and amlodipine -BP improved Status: Acute (3) Non-ST elevation [place] (NSTEMI): type 2 in setting of elevated BP -No significant EKG chnages and normal LV function with no RWMA - CAD risk factor of untreated HTN, age and sex. -No ischemia on stress test -stable to be discharged on ASA, statin, lisinopril and amlodipine -F/U with Cee in 2 weeks and with in 6-8 weeks -Patient advised on low salt cardiac diet. -BP/HR log x 2 weeks Status: Acute Plan Fever : at home, none documeted in hospital Cholelithiasis. Several bilateral renal cysts. Diverticulosis without diverticulitis. Prostate gland enlarged. Attestations Medical Necessity Statement*: stable to be discharged home Time Spent in Patient Care: 16 - 35 minutes Coding Level of Care Code Acute Clinical Biostatistics Director for Chg Fwd Diagnoses Chest pain R07.9 Hypertension I10 Non-ST elevation [place] (NSTEMI) I21.4
[2022-02-03] MEDS: enoxaparin 80 mg/0.8 mL Syringe SUBCUT (11:53)
--- NOTE | 2022-02-03 12:47 | P.PN_ITS ---
Subjective Subjective: Patient experienced coughing after getting medications No active chest pain Patient stating that during stress test he experienced pain in his left arm which improved Vitals/I&O/Wt Last Vital Signs Temp 98.2 F 02/03/22 11:51 Pulse 72 02/03/22 11:51 Resp 14 02/03/22 11:51 BP 146/89 02/03/22 11:51 Pulse Ox 96 02/03/22 11:51 O2 Del Method 02/03/22 11:51 02/02/22 02/03/22 02/03/22 22:59 06:59 14:59 Intake Total 365 / 490 360 / 360 Balance 365 / 490 360 / 360 Weight last 48 hrs Weight 83.915 kg Physical Exam Narrative: Patient is clinically stable Euvolemic S1, S2 Abdomen soft Such well on room air Hard of hearing Saturating well on room air Nonfocal neuro exam No acute distress Data : 02/03/22 05:14 02/03/22 05:14 Micro: Microbiology 02/02/22 06:10 Blood Culture - Preliminary Blood SPECIMEN COLLECTED 02/02/22 06:08 Blood Culture - Preliminary Blood NEGATIVE TO DATE A&P Assessment and plan (1) Hypertension: Status: Acute (2) Chest pain: Status: Acute (3) Non-ST elevation [place] (NSTEMI): Status: Acute Plan Stress test is negative Will follow up with cardiology for further plan Patient experienced chest pain during his stress test however no acute changes NSTEMI Patient to finish 48 hours on therapeutic anticoagulating agent Hypertensive urgency: Currently on lisinopril and amlodipine Systolic blood pressures ranging between 140s to 150s, might add chlorthalidone Fever at home however no evidence during his hospitalization He suffered from COVID-19 few weeks ago No acute symptoms of BPH No abdominal pain Likely discharge tomorrow Cardiac diet DVT prophylaxis on board Full code Attestations Medical Necessity Statement*: We will follow-up with cardiology to decide about his disposition tomorrow Time Spent in Patient Care: 40 Coding Level of Care Code Acute Cloud Software Engineer for [facility] Diagnoses Hypertension I10 Chest pain R07.9 Non-ST elevation [place] (NSTEMI) I21.4
--- NOTE | 2022-02-03 13:26 | P.DS_ITS ---
Discharge Providers Date of Admission: 02/01/22 21:15 Date of Discharge: February 03, 2022 Attending Provider at Admission: Mary Watts MD Attending Provider at Discharge: Travis Gasca MD Primary Care Provider: Joellen Dash Diagnoses at Discharge Discharge Diagnosis (1) Chest pain: Status: Acute (2) Hypertension: Status: Acute (3) Non-ST elevation [place] (NSTEMI): Status: Acute Reason for Visit Reason for Visit: High BP-sent by dr Mccarty Course Hospital Course Detailed note by Dr Saleh:- Anant Rowland is a 56 year old male with no h/o [place], stroke, TIA, HLD, DM-2. He is a non smoker/ tobacco chewer and denies any family h/o CAD. He has some kind of lung problem for which he was prescribed inhaler after PFT 6 years back. He also had a stress test 6 years back that was normal. He has known he has high blood pressure but d/t lack of insurance he has not been taking meds/ seeing PCP. He complains of 2 episodes of chest pain that happened with exertion, retrostrenal in location and lasted 3-4 hours. Last episode was Tuesday. He complains of two episodes of fever Tuesday, Tuesday and episode of loose stool. He came to ER for further evaluation. EKG with sinus rhythm and non specific T wave inversion in lead III. Troponin T 123-> 125--> 151. Patient is CP free and echo with normal LV function with no RWMA.? BP 180/122 mm Hg on arrival and BP 190/100 with first episode of chest pain a week or so ago.? Hosp course:- Pt was admitted for UA and NSTEMI. Cardiac stress test was unremarkable. Dr. Levine recommended outpatient follow-up with addition of aspirin, statin, lisinopril and amlodipine. Echo unremarkable. D-dimer not high. No signs of pneumonia. CholeLithiasis without right upper quadrant pain. Physical Exam Narrative: Patient is euvolemic S1, S2 Nonfocal neuro exam Awake and alert Satting well on room air No active chest pain Discharge Data Studies Completed and Pending Completed Studies During Hospitalization Category Date Time Status CTA chest abdomen pelvis [CT angio chest abdomen pelvis Cat Scan 02/01/22 21:04 Completed ] Urgent CXRP [XR chest 1V portable [id number]] Stat Exams 02/01/22 19:10 Completed Sestamibi Stress Test Request Routine Exams 02/02/22 11:40 Draft NM jimmy perf SPECT r/s* [id number] Routine Nuc Med 02/03/22 11:40 Completed CV. echo complete* [id number] Routine Ultrasound 02/02/22 01:16 Completed Pending at discharge Category Date Time Status Blood Culture Stat Lab 02/02/22 06:10 Results [facility] SARS-CoV-2 RNA Stat Lab 02/02/22 10:46 Received Respiratory Viral Panel PCR Stat Lab 02/02/22 04:45 Received Sputum Culture and Gram Stain Stat Lab 02/02/22 01:46 Uncollected Radiology Impressions Chest X-Ray 02/01/22 19:10 IMPRESSION: No acute findings. Chest/Abdomen/Pelvis CTA 02/01/22 21:04 IMPRESSION: 1. Negative for pulmonary embolus or acute inflammatory process in the abdomen or pelvis. 2. Coronary artery atherosclerotic calcifications. 3. Cholelithiasis. 4. Several bilateral renal cysts. 5. Diverticulosis without diverticulitis. 6. Prostate gland enlarged. 7. Bibasilar atelectasis. 8. Scattered prominent mediastinal lymph nodes measuring up to 10 mm short axis, nonspecific. 9. Constipation. COMMENTS: Consistent with the [place]'s Incidental Findings Committee white paper (J Am Chirag Radiol 2018): Any incidental renal lesion less than 1 cm or classified as too small to characterize, or any incidental cystic renal lesion characterized as simple-appearing, is likely benign. No follow-up imaging is recommended for these lesions per consensus recommendations based on imaging criteria. Laboratory Results WBC 9.4 10^3/uL (4.0-10.0) 02/03/22 05:14 RBC 5.86 10^6/uL (4.1-5.3) H 02/03/22 05:14 Hgb 16.4 g/dL (11.7-16.6) 02/03/22 05:14 Hct 49.4 % (42.0-52.0) 02/03/22 05:14 MCV 84.3 fl (80-94) 02/03/22 05:14 MCH 28.0 pg (28.0-34.0) 02/03/22 05:14 MCHC 33.2 g/dL (30.0-36.0) 02/03/22 05:14 RDW 12.6 % (12.1-15.1) 02/03/22 05:14 Plt Count 282 10^3/cmm (130-400) 02/03/22 05:14 MPV 9.8 fL (7.4-10.4) 02/03/22 05:14 Neut % (Auto) 49.8 % 02/03/22 05:14 Lymph % (Auto) 34.4 % 02/03/22 05:14 [place] % (Auto) 10.0 % 02/03/22 05:14 Eos % (Auto) 5.1 % 02/03/22 05:14 Baso % (Auto) 0.5 % 02/03/22 05:14 Neut # (Auto) 4.65 10^3/uL (1.8-7.7) 02/03/22 05:14 Lymph # (Auto) 3.2 10^3/uL (0.8-4.8) 02/03/22 05:14 [place] # (Auto) 0.9 10^3/uL (0.2-0.9) 02/03/22 05:14 Eos # (Auto) 0.5 10^3/uL (0.0-0.8) 02/03/22 05:14 Baso # (Auto) 0.1 10^3/uL (0.0-0.1) 02/03/22 05:14 Nucleated RBC % (auto) 0 % 02/03/22 05:14 Nucleated RBCs # 0.0 /100WBC 02/03/22 05:14 D-Dimer 0.34 ug/mIFEU (0-0.59) 02/03/22 05:14 Sodium 137 mmol/L (136-145) 02/03/22 05:14 Potassium 4.2 mmol/L (3.5-5.1) 02/03/22 05:14 Chloride 104 mmol/L (98-107) 02/03/22 05:14 Carbon Dioxide 26 mmol/L (22-29) 02/03/22 05:14 Anion Gap 11.2 (5-19) 02/03/22 05:14 BUN 18 mg/dL (6-20) 02/03/22 05:14 Creatinine 1.0 mg/dL (0.7-1.2) 02/03/22 05:14 GFR Calculation 77.9 mL/min (90-130) L 02/03/22 05:14 Glucose 98 mg/dL (65-115) 02/03/22 05:14 Estimat Average Glucose 117 02/01/22 19:50 Hemoglobin A1c 5.7 % (4.0-6.0) 02/01/22 19:50 Calculated Osmolality 286 mOsm/kg (285-295) 02/03/22 05:14 Calcium 9.4 mg/dL (8.5-10.5) 02/03/22 05:14 Magnesium 2.1 mg/dL (1.7-2.3) 02/03/22 05:14 Total Bilirubin 0.5 mg/dL (0.15-1.2) 02/03/22 05:14 AST 17 U/L (0-40) 02/03/22 05:14 ALT 19 U/L (0-41) 02/03/22 05:14 Alkaline Phosphatase 98 IU/L (40-130) 02/03/22 05:14 Troponin T Baseline 123 ng/L (0-15) H* 02/01/22 19:50 Troponin T 120 Minute 125.2 ng/L (0-15) H 02/01/22 22:21 Delta Troponin T 2.2 ABS# (0-10) 02/01/22 22:21 Troponin T Hi Sens 6Hr 151.2 ng/L (0-15) H 02/02/22 02:09 Troponin T Hi Sens 6Hr Delta 28.2 ng/L (0-12) H* 02/02/22 02:09 NT-Pro-B Natriuret Pep 237 pg/mL (0-125) H 02/01/22 22:21 Total Protein 7.1 g/dL (6.6-8.7) 02/03/22 05:14 Albumin 4.0 g/dL (3.5-5.2) 02/03/22 05:14 Globulin 3.1 g/dL (1.3-4.6) 02/03/22 05:14 Triglycerides 119 mg/dL (0-150) 02/01/22 22:21 Triglycerides Cancelled 02/01/22 22:21 Cholesterol 194 mg/dL (0-200) 02/01/22 22:21 Cholesterol Cancelled 02/01/22 22:21 LDL Cholesterol, Calc 132 mg/dL (50-129) H 02/01/22 22:21 LDL Cholesterol, Calc Cancelled 02/01/22 22:21 HDL Cholesterol 38 mg/dL (60-100) L 02/01/22 22:21 HDL Cholesterol Cancelled 02/01/22 22:21 LDL/HDL Ratio 3.47 RATIO (0.00-3.22) H 02/01/22 22:21 LDL/HDL Ratio Cancelled 02/01/22 22:21 Cholesterol/HDL Ratio 5.11 mg/dL (1.0-5.00) H 02/01/22 22:21 Cholesterol/HDL Ratio Cancelled 02/01/22 22:21 Procalcitonin 0.06 ng/mL (0-0.5) 02/01/22 22:21 TSH 1.53 uIU/mL (0.27-4.20) 02/01/22 22:21 TSH Cancelled 02/01/22 22:21 Urine Color Yellow (Yellow) 02/02/22 04:45 Urine Appearance Clear (CLEAR) 02/02/22 04:45 Urine pH 6.5 (5-7) 02/02/22 04:45 Ur Specific Oil Trough 1.005 (1.005-1.030) 02/02/22 04:45 Urine Protein Neg (Negative) 02/02/22 04:45 Urine Glucose (UA) Norm (Normal) 02/02/22 04:45 Urine Ketones Negative (Negative) 02/02/22 04:45 Urine Blood Neg (Negative) 02/02/22 04:45 Urine Nitrate Negative (Negative) 02/02/22 04:45 Urine Bilirubin Neg (Negative) 02/02/22 04:45 Urine Urobilinogen 1 mg/dL (Negative) H 02/02/22 04:45 Ur Leukocyte Esterase Negative (Negative) 02/02/22 04:45 Urine Opiates Screen Negative ng/mL (Negative) 02/02/22 04:45 Ur Barbiturates Screen Negative ng/mL (Negative) 02/02/22 04:45 Ur Phencyclidine Scrn Negative ng/mL (Negative) 02/02/22 04:45 Ur Amphetamines Screen Negative ng/mL (Negative) 02/02/22 04:45 U Benzodiazepines Scrn Negative ng/mL (Negative) 02/02/22 04:45 Urine Cocaine Screen Negative ng/mL (Negative) 02/02/22 04:45 U Marijuana (THC) Screen Negative ng/mL (Negative) 02/02/22 04:45 SARS-CoV-2 Ag (Rapid) Negative (Negative) 02/01/22 20:34 Vitals Last Vital Signs Temp 98.2 F 02/03/22 11:51 Pulse 72 02/03/22 11:51 Resp 14 02/03/22 11:51 BP 146/89 02/03/22 11:51 Pulse Ox 96 02/03/22 11:51 O2 Del Method 02/03/22 11:51 Discharge Plan Discharge Patient Disposition: Home Condition: Stable Prescriptions: New atorvastatin 40 mg Tablet 40 mg PO BEDTIME Qty: 60 3RF aspirin 81 mg Tablet,Delayed Release (Dr/Ec) 81 mg PO DAILY Qty: 60 3RF amlodipine 10 mg Tablet 10 mg PO DAILY Qty: 60 3RF lisinopril 10 mg Tablet 20 mg PO DAILY Qty: 60 2RF Continued Advil 200 mg Tablet 800 mg PO Q6H PRN (Reason: Pain) Discharge Orders: Discharge Order (Routine); Ordered 02/03/22 Ordered By: Travis Gasca Referrals: Cee Trammell FNP [Nurse Practitioner] - 2 weeks Kary Saleh MD [Physician] - 6 Weeks Joellen Dash PA-C [Primary Care Provider] - Discharge Diet: Cardiac Discharge Activity: Increase activity as tolerated Patient Instructions: Opioid Safety Discharge Attestations Time Spent in Discharge Care*: less than 30 min Quality Metrics Clinical Quality Measures [ No reported AMI, CVA or VTE this stay] Coding Level of Care Code Acute Chg FW DC note Diagnoses Chest pain R07.9 Hypertension I10 Non-ST elevation [place] (NSTEMI) I21.4
--- NOTE | 2022-02-03 15:00 | PC.NURSE ---
Discharge Note Patient discharged to Home via private vehicle accompanied by family. Discharge instructions reviewed with patient and/or patient accounting representative. Mobile pharmacy medications and/or prescriptions provided. Belongings/home medications returned.
[2022-02-03 20:13] LABS: Quest SARS-CoV-2 RNA NOT DETECTED (NOT DETECTED)
[2022-02-06 15:27] LABS: Adenovirus Not Detected (Not Detected); Human Metapneumovirus Not Detected (Not Detected); Human Parainflu Virus 1 Not Detected (Not Detected); Human Parainflu Virus 2 Not Detected (Not Detected); Human Parainflu Virus 3 Not Detected (Not Detected); Human Rsv A Not Detected (Not Detected); Influenza A Not Detected (Not Detected); Influenza B Not Detected (Not Detected); Rhinovirus/Enterovirus Not Detected (Not Detected)
== END 2022-02-03 15:00 | disposition home or self-care (01) | DRG 281 ==
LOC: ER 21:07 → MEDSURG 22:02
PROVIDERS: Admitting Provider Internal Medicine; Emergency Provider Emergency Medicine; PCP Physician Assistant; Visit Provider Internal Medicine
DX: I21.4 Non-ST elevation (NSTEMI) myocardial infarction (principal); I16.1 Hypertensive emergency; K80.20 Calculus of gallbladder without cholecystitis without obstruction; K57.90 Diverticulosis of intestine, part unspecified, without perforation or abscess without bleeding; N40.0 Benign prostatic hyperplasia without lower urinary tract symptoms; K59.00 Constipation, unspecified; I10 Essential (primary) hypertension; Z86.16 Personal history of COVID-19
CPT/HCPCS: 36415; 71045; 71275; 74174; 78452; 80048; 80053; 80061; 80306; 81003; 83036; 83735; 83880; 84145; 84443; 84484; 85025; 85378; 87040; 87426; 87633; 87635; 93005; 93306; 94664; 94760; 96372; 96374; 96376; 99285; A9500; J0360; J1650; J2785; J3490; Q9967

== ENCOUNTER 2023-02-16 08:57 | Outpatient (CLI) | payer MEDICAID, SELFPAY ==
[2023-02-16 09:11] VITALS: BP 133/89
[2023-02-16] MEDS: albuterol 2.5 mg/3 mL Neb INHALATION (09:21)
[2023-02-16 09:29] VITALS: PULSE 69; RESP 18; O2SAT 98
[2023-02-16 09:33] VITALS: PULSE 77
== END 2023-02-16 08:58 | disposition home or self-care (01) ==
PROVIDERS: PCP Physician Assistant; Visit Provider Internal Medicine Cardiovascular Disease
DX: R06.02 Shortness of breath (principal)
CPT/HCPCS: 94060; 94618; 94726; 94729; J7613

== ENCOUNTER → 2023-04-07 15:49 | Outpatient (BNVA) | payer MEDICAID, SELFPAY | PROVIDERS: PCP Physician Assistant; Visit Provider Internal Medicine Pulmonary Disease | DX: R06.02 Shortness of breath (principal); R06.09 Other forms of dyspnea | CPT/HCPCS: 36415; 71046; 82785; 86003 ==

== ENCOUNTER 2023-06-10 10:54 | Observation (INO) | payer MEDICAID, SELFPAY ==
[2023-06-10] VITALS (72 sets, daily range): BP systolic 121–161; BP diastolic 60–99; PULSE 57–88; RESP 13–30; TEMP 36.4–36.7; O2SAT 92–98; BMI 28.1; BMI 29.0
--- NOTE | 2023-06-10 11:00 | XR_ITS ---
WS: [id number] Portable AP upright chest, 06/10/2023 Clinical Data: cp Comparison: Two-view chest, 04/07/2023 Findings: No nodules, masses or effusions are seen. The heart is normal. The pulmonary vascularity is not increased. No pneumonia or pneumothorax is seen. Monitor leads are on the chest wall. Impression: Negative chest.
--- NOTE | 2023-06-10 11:01 | ECG_ITS ---
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 Measurements Intervals [place] Rate: 63 P: 24 MN: 145 QRS: 35 QRSD: 91 T: 18 QT: 364 QTc: 375 Interpretive Statements SINUS RHYTHM Compared to ECG 02/02/2022 02:41:50 T-wave abnormality no longer present Electronically Signed On 06-10-2023 16:07:12 STANDPIPE TENDER by Riya Angeles M.D. [email or web address] medical specialty hospital - southeast [id number] f
--- NOTE | 2023-06-10 11:08 | ED_ITS ---
HPI - Chest Pain 2 General: Chief Complaint: Chest Pain Stated Complaint: chest pain Time Seen by Provider: 06/10/23 11:01 Source: patient Mode of arrival: ambulatory Limitations: no limitations History of Present Illness: 57-year-old male who states been having chest pain over the last 2 days. He states it has been exertional in nature he said anytime he exerts himself he has pain that radiates to his jaw. Denies any shortness of breath denies any nausea. States he is currently pain-free. Associated symptoms: Deny abdominal pain, dyspnea, fever(s), nausea or vomiting Review of Systems 2 Const: Denies: fever(s), chills, body aches or change in appetite ENMT: Denies: throat pain or dental pain Card: Reports: chest pain Resp: Denies: dyspnea GI: Denies: abdominal pain, nausea, vomiting or diarrhea : Denies: dysuria Musc: Denies: neck pain or back pain Skin/Breast: Denies: rash All/Imm: Denies: urticaria PFSH ED 2 PFSH: Medical History Elevated troponin Chest pain Hypertension Non-ST elevation HI (NSTEMI) Hypertensive emergency Social History Smoking and tobacco/nicotine status: never used tobacco/nicotine Alcohol intake: never Substance/Drug Use: never Physical Exam 2 Const: COMMON NORMALS: no acute distress, patient oriented x3 and healthy appearing HENMT: COMMON NORMALS: normocephalic and atraumatic HEAD & SCALP: n ormocephalic and atraumatic Eye: COMMON NORMALS: Equal, round and reactive pupils present and EOMs intact bilaterally PUPIL: Yes Equal, round and reactive pupils present Neck/C-Spine: COMMON NORMALS: full ROM and supple Chest: COMMONS NORMALS: normal inspection of the chest and normal palpation of entire chest wall Resp: COMMON NORMALS: normal respiratory effort, No retractions, No use of accessory muscles and clear to auscultation bilaterally AUSCULTATION: clear to auscultation bilaterally Cardio: COMMON NORMALS: regular rate, regular rhythm and No murmurs present (Cardio) RATE: regular rate RHYTHM: regular rhythm GI: COMMON NORMALS: Normal to inspection, nondistended, normoactive bowel sounds present, Soft to palpation, non-tender and no masses PALPATION: Yes Soft to palpation Extremity: COMMON NORMALS: normal to inspection and full ROM Neuro: COMMON NORMALS: patient oriented x3, moves all extremities and no focal motor deficits Psych: COMMON NORMALS: mental status grossly normal, Normal thought process present and cooperative THOUGHT PROCESS: Normal thought process present Skin: COMMON NORMALS: no rashes or lesions noted and no wounds GENERAL SKIN EXAM: no rashes or lesions noted Course 2 Vital Signs: Vital signs: Vital Signs Temperature 97.6 F 06/10/23 10:59 Pulse Rate 63 06/10/23 10:59 Respiratory Rate 16 06/10/23 10:59 Blood Pressure 161/88 06/10/23 10:59 Pulse Oximetry 98 06/10/23 10:59 MDM - Chest Pain Medical Decision Making Patient presents for chest pain exertional nature. Initial troponins only minimally elevated but does have a very good history will admit for ACS rule out at this time. Medical Records I reviewed the patient's medical records. Lab Data I reviewed the patient's lab results. 06/10/23 11:12 06/10/23 11:12 Laboratory Results WBC 9.02 10^3/uL (3.29-11.43) 06/10/23 11:12 RBC 5.61 10^6/uL (3.85-5.65) 06/10/23 11:12 Hgb 16.30 g/dL (11.27-16.99) 06/10/23 11:12 Hct 49.5 % (37-53) 06/10/23 11:12 MCV 88.2 fl (82-101) 06/10/23 11:12 MCH 29.1 pg (27-33) 06/10/23 11:12 MCHC 32.9 g/dL (30-55) 06/10/23 11:12 RDW 12.4 % (12.1-15.1) 06/10/23 11:12 Plt Count 255 10^3/cmm (157-399) 06/10/23 11:12 MPV 9.8 fL (7.4-10.4) 06/10/23 11:12 Neut % (Auto) 49.8 % 06/10/23 11:12 Lymph % (Auto) 40.0 % 06/10/23 11:12 [place] % (Auto) 6.0 % 06/10/23 11:12 Eos % (Auto) 3.4 % 06/10/23 11:12 Baso % (Auto) 0.6 % 06/10/23 11:12 Neut # (Auto) 4.49 10^3/uL (1.8-7.7) 06/10/23 11:12 Lymph # (Auto) 3.6 10^3/uL (0.8-4.8) 06/10/23 11:12 [place] # (Auto) 0.5 10^3/uL (0.2-0.9) 06/10/23 11:12 Eos # (Auto) 0.3 10^3/uL (0.0-0.8) 06/10/23 11:12 Baso # (Auto) 0.1 10^3/uL (0.0-0.1) 06/10/23 11:12 Nucleated RBC % (auto) 0 % 06/10/23 11:12 Nucleated RBCs # 0.0 /100WBC 06/10/23 11:12 PT 12.80 SECONDS (12.1-14.9) 06/10/23 11:12 INR 0.93 (0.8-1.2) 06/10/23 11:12 Sodium 138 mmol/L (136-145) 06/10/23 11:12 Potassium 4.9 mmol/L (3.5-5.1) 06/10/23 11:12 Chloride 104 mmol/L (98-107) 06/10/23 11:12 Carbon Dioxide 24 mmol/L (22-29) 06/10/23 11:12 Anion Gap 14.9 (5-19) 06/10/23 11:12 BUN 12 mg/dL (6-20) 06/10/23 11:12 Creatinine 1.0 mg/dL (0.7-1.2) 06/10/23 11:12 GFR Calculation 77.6 mL/min (90-130) L 06/10/23 11:12 Glucose 99 mg/dL (65-115) 06/10/23 11:12 Calculated Osmolality 286 mOsm/kg (285-295) 06/10/23 11:12 Calcium 10.0 mg/dL (8.5-10.5) 06/10/23 11:12 Total Bilirubin 0.6 mg/dL (0.15-1.2) 06/10/23 11:12 AST 35 U/L (0-40) 06/10/23 11:12 ALT 40 U/L (0-41) 06/10/23 11:12 Alkaline Phosphatase 131 U/L (40-130) H 06/10/23 11:12 Troponin T Baseline 18 ng/L (0-15) H 06/10/23 11:12 Total Protein 7.2 g/dL (6.6-8.7) 06/10/23 11:12 Albumin 4.7 g/dL (3.5-5.2) 06/10/23 11:12 Globulin 2.5 g/dL (1.3-4.6) 06/10/23 11:12 Lipase 28 U/L (13-60) 06/10/23 11:12 All radiology interpretation(s) finalized by discharge EKG Data EKG 1: I personally reviewed and interpreted this EKG as follows: EKG interpretation date: 06/10/23 EKG interpretation time: 11:01 Interpretation: nsr hr [address] or t wave abnormalities qrs 91 qtc 372 Discharge Plan Discharge Admit Provider: Blane Cleveland Condition: Stable Coding Level of Care Code ED Shuttler Car for Chg Jack
[2023-06-10] MEDS: aspirin 81 mg Chew Tablet 324 MG PO (11:10)
[2023-06-10 11:27] LABS: Basophils # 0.1 10^3/uL (0.0-0.1); Basophils % 0.6 %; Eosinophils # 0.3 10^3/uL (0.0-0.8); Eosinophils % 3.4 %; Hematocrit 49.5 % (37-53); Lymphocytes # 3.6 10^3/uL (0.8-4.8); Mean Corpuscular HGB Conc 32.9 g/dL (30-55); Mean Corpuscular Hemoglobin 29.1 pg (27-33); Mean Corpuscular Volume 88.2 fl (82-101); Mean Platelet Volume 9.8 fL (7.4-10.4); Monocytes # 0.5 10^3/uL (0.2-0.9); Neutrophils # 4.49 10^3/uL (1.8-7.7); Neutrophils % 49.8 %; Nucleated Red Blood Cells % 0 %; Platelet Count 255 10^3/cmm (157-399); Red Blood Count 5.61 10^6/uL (3.85-5.65); Red Cell Distribution Width 12.4 % (12.1-15.1); White Blood Count 9.02 10^3/uL (3.29-11.43)
[2023-06-10 11:41] LABS: INR 0.93 (0.8-1.2)
[2023-06-10 11:49] LABS: Alanine Aminotransferase 40 U/L (0-41); Albumin Level 4.7 g/dL (3.5-5.2); Alkaline Phosphatase 131 U/L (40-130); Aspartate Amino Transferase 35 U/L (0-40); Blood Urea Nitrogen 12 mg/dL (6-20); Carbon Dioxide 24 mmol/L (22-29); Chloride 104 mmol/L (98-107); Globulin 2.5 g/dL (1.3-4.6); Glomerular Filtration Rate 77.6 mL/min (90-130); Glucose 99 mg/dL (65-115); Lipase 28 U/L (13-60); Osmolality Calculated 286 mOsm/kg (285-295); Sodium 138 mmol/L (136-145); Total Bilirubin 0.6 mg/dL (0.15-1.2); Total Protein 7.2 g/dL (6.6-8.7); Troponin(5th) Baseline 18 ng/L (0-15)
[2023-06-10 11:50] LABS: Anion Gap 14.9 (5-19); Potassium 4.9 mmol/L (3.5-5.1)
--- NOTE | 2023-06-10 14:08 | ECG_ITS ---
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 Measurements Intervals [place] Rate: 61 P: 33 AL: 148 QRS: 34 QRSD: 102 T: 7 QT: 383 QTc: 389 Interpretive Statements SINUS RHYTHM Compared to ECG 06/10/2023 11:01:57 No significant changes Electronically Signed On 06-10-2023 16:20:40 BRIQUETTE MACHINE OPERATOR HELPER by Riya Angeles M.D. [email or web address] [facility] [email or web address]/[id number]
[2023-06-10 14:17] LABS: Troponin 5 2HR 21.32 ng/L (0-15); Troponin 5 2HR Delta 3.32 ABS# (0-10)
--- NOTE | 2023-06-10 14:51 | P.HP_ITS ---
Providers/Chief Complaint 2 Admitting Physician: Blane Cleveland Primary Care Provider: Joellen Dash Chief Complaint: chest pain History of Present Illness Pleasant 57-year-old gentleman with history of chronic lung disease, he is not sure of the type, noted eosinophilic asthma history, HTN, HLD, secondhand smoke exposure, reports history of NSTEMI in 2021, at that time he had a stress test which was unremarkable. He presents to the hospital today due to over the last 4 days having recurrent episodes of central chest pain radiating to his left jaw particularly triggered by exertion, with rest making it better. He states has been having to rest multiple times when trying to work on the siding of his house due to recurrent episodes, a day ago now started needing to take a break while walking in his yard. He has some chronic cough. Reports is due to his chronic lung disease, without any worsening. Denies chest pain on inspiration, with movement, but does state that some episodes have come on while he was even at rest. Today he had an episode, while he was eating breakfast. Occasionally takes ibuprofen for headaches but not recently. He does report orthopnea having to sleep on several pillows. Review of Systems 2 Const: Denies: fever(s), chills, body aches or malaise ENMT: Denies: throat pain Card: Reports: chest pain and orthopnea; Denies: edema, pre-syncope or dyspnea on exertion Resp: Denies: dyspnea, productive cough, change in phlegm color or hemoptysis GI: Denies: abdominal pain, nausea, vomiting, diarrhea, constipation, hematochezia or melena : Denies: flank pain, difficulty urinating, urinary frequency or hematuria Musc: Denies: back pain, joint swelling or joint redness Skin/Breast: Denies: rash or new lesions Neuro: Denies: headache(s), numbness in extremities, weakness in extremities, dizziness, confusion or seizure-like activity Medications/Allergies Home Medications Medication Instructions Recorded Confirmed Last Taken Type ibuprofen 200 mg tablet (Advil) 800 mg PO Q6H PRN Pain 02/01/22 06/10/23 02/01/22 History aspirin 81 mg tablet,delayed 81 mg PO DAILY #60 tabs 02/03/22 06/10/23 06/10/23 Rx release tamsulosin 0.4 mg capsule 0.4 mg PO DAILY 01/26/23 06/10/23 06/10/23 History amlodipine 10 mg tablet 10 mg PO DAILY #90 tabs 03/29/23 06/10/23 06/10/23 Rx atorvastatin 40 mg tablet 40 mg PO BEDTIME #90 tabs 03/29/23 06/10/23 06/09/23 Rx albuterol sulfate 90 mcg/actuation 2 puff inhalation Q6H PRN 04/07/23 06/10/23 Unknown Rx aerosol inhaler shortness of breath or wheezing #8.5 grams budesonide-formoterol HFA 80 2 puff inhalation BID #10.2 grams 04/07/23 06/10/23 06/10/23 Rx mcg-4.5 mcg/actuation aerosol inhaler (Symbicort) lisinopril 10 mg tablet 10 mg PO DAILY 04/07/23 06/10/23 06/10/23 History Allergies Allergy/AdvReac Type Severity Reaction Status Date / Time No Known Allergies Allergy Verified 04/07/23 14:55 PFSH Acute 2 PFSH: Medical History Elevated troponin Chest pain Hypertension Non-ST elevation HI (NSTEMI) Hypertensive emergency Social History Smoking and tobacco/nicotine status: never used tobacco/nicotine Alcohol intake: never Substance/Drug Use: never Vitals/I&O/Wt Last Vital Signs Temp 97.6 F 06/10/23 10:59 Pulse 63 06/10/23 10:59 Resp 16 06/10/23 10:59 BP 161/88 06/10/23 10:59 Pulse Ox 98 06/10/23 10:59 O2 Del Method Room Air 06/10/23 12:51 Weight last 48 hrs Weight 86.721 kg Weight 83.915 kg Physical Exam 2 Narrative: Accompanied by family. Const: COMMON NORMALS: patient oriented x3 and alert GENERAL APPEARANCE: c ooperative ORIENTATION/CONSCIOUSNESS: Yes awake HENMT: COMMON NORMALS: oropharynx normal Neck/C-Spine: COMMON NORMALS: no JVD Resp: COMMON NORMALS: normal respiratory effort and clear to auscultation bilaterally AUSCULTATION: clear to auscultation bilaterally Cardio: COMMON NORMALS: no JVD, regular rhythm, S1 normal heart sound present, S2 normal heart sound present and No murmurs present (Cardio) RHYTHM: regular rhythm HEART SOUNDS: S1 normal heart sound present and S2 normal heart sound present GI: COMMON NORMALS: Normal to inspection, nondistended, normoactive bowel sounds present, Soft to palpation and non-tender PALPATION: Yes Soft to palpation Extremity: COMMON NORMALS: no joint enlargement and no pedal edema Neuro: COMMON NORMALS: patient oriented x3 and moves all extremities S ENSORIUM/ORIENTATION: Yes alert Skin: COMMON NORMALS: no rashes or lesions noted GENERAL SKIN EXAM: no rashes or lesions noted Data 06/10/23 11:12 06/10/23 11:12 A&P Assessment and plan (1) Chest pain: With worsening/advancement over the last 4 days, causing exertional intolerance, he is having to stop and rest until chest pain is relieved. Has not had nitroglycerin at home. With history of NSTEMI, left stress test was unremarkable in 2021. Risk factors of coronary disease including HTN, HLD, secondhand smoke exposure. Mild troponin elevation at 18 at baseline. EKG reviewed on my interpretation without signs of ischemia. Assess for possible acute HI. Complete troponin EKG series. With risk of arrhythmia monitor on telemetry. He does report orthopnea, will additionally assess TTE. Monitor on telemetry. High risk by heart score. Discussed with brick offbearer, appreciate consultation. Plans for coronary angiography. In case of noncardiac etiology, discussed with him other possibilities. Will additionally assess D-dimer. Reports some symptoms while eating (although only this morning), discussed possible GI etiologies including PUD, GERD/esophagitis, he occasionally takes ibuprofen but not currently. Possible esophageal spasm. Continue aspirin, statin. Nitroglycerin as needed. Monitor blood pressures. Will additionally start PPI as discussed with him. Reviewed vitals, CBC, INR, CMP, including renal function, with risk of nephropathy with angiographic assessment/contrast dye to reassess chemistry, initial troponin, EKG, chest x-ray, ER documentation, discussed with ER provider. Leigh with brick offbearer, reviewed cardiology documentation. Plan Eosinophilic asthma: Albuterol as needed. Budesonide. HTN: Monitor blood pressures, continue amlodipine, lisinopril BPH: Continue tamsulosin Attestations 2 Medical Necessity Statement*: Place in observation for additional assessment management of frequent recurrent chest pain, functionally limiting, with risk factors of coronary artery disease. Diagnoses Chest pain R07.9
--- NOTE | 2023-06-10 15:32 | P.CONIM_ITS ---
Providers/Reason For Consult 2 Consulting Physician/Specialty*: Cardiovascular medicine Reason for Consult*: Chest pain Requesting Physician: Hospitalist Attending Physician: Blane Cleveland Primary Care Provider: Joellen Dash History of Present Illness History of Present Illness Anant Rowland is a 57 year old male with no history of heart disease who has been having chest pain for 4 days. He describes this is exertional but sharp. It radiates to his left jaw. There is shortness of breath associated but no other symptoms. He has had 15 episodes yesterday and 3 or 4 episodes this morning. No aggravating factors. The only thing that alleviates it is rest. He was here a year ago with what he describes as different pain. His troponin then was 129 but his blood pressure was amandeep high. A sestamibi exam was normal and an echo was normal. On this occasion his EKG remains completely normal. His troponins are 18 and 21. He is free of discomfort now. Review of Systems 2 Narrative: Review of systems is negative Medications/Allergies Home Medications Medication Instructions Recorded Confirmed Last Taken Type ibuprofen 200 mg tablet (Advil) 800 mg PO Q6H PRN Pain 02/01/22 06/10/23 02/01/22 History aspirin 81 mg tablet,delayed 81 mg PO DAILY #60 tabs 02/03/22 06/10/23 06/10/23 Rx release tamsulosin 0.4 mg capsule 0.4 mg PO DAILY 01/26/23 06/10/23 06/10/23 History amlodipine 10 mg tablet 10 mg PO DAILY #90 tabs 03/29/23 06/10/23 06/10/23 Rx atorvastatin 40 mg tablet 40 mg PO BEDTIME #90 tabs 03/29/23 06/10/23 06/09/23 Rx albuterol sulfate 90 mcg/actuation 2 puff inhalation Q6H PRN 04/07/23 06/10/23 Unknown Rx aerosol inhaler shortness of breath or wheezing #8.5 grams budesonide-formoterol HFA 80 2 puff inhalation BID #10.2 grams 04/07/23 06/10/23 06/10/23 Rx mcg-4.5 mcg/actuation aerosol inhaler (Symbicort) lisinopril 10 mg tablet 10 mg PO DAILY 04/07/23 06/10/23 06/10/23 History Allergies Allergy/AdvReac Type Severity Reaction Status Date / Time No Known Allergies Allergy Verified 04/07/23 14:55 PFSH Acute 2 PFSH: Medical History Elevated troponin Chest pain Hypertension Non-ST elevation [place] (NSTEMI) Hypertensive emergency Social History Smoking and tobacco/nicotine status: never used tobacco/nicotine Alcohol intake: never Substance/Drug Use: never Vitals/I&O/Wt Last Vital Signs Temp 97.6 F 06/10/23 10:59 Pulse 63 06/10/23 10:59 Resp 16 06/10/23 10:59 BP 161/88 06/10/23 10:59 Pulse Ox 98 06/10/23 10:59 O2 Del Method Room Air 06/10/23 12:51 Weight last 48 hrs Weight 191 lb 3 oz Weight 185 lb Physical Exam 2 Narrative: GENERAL: In general he looks well HEENT: Exam within normal limits. NECK: Supple without jugular vein distention. The carotid upstroke is normal without bruits. BACK: Exam normal. LUNGS: Clear. HEART: Regular rate and rhythm. ABDOMEN: Benign without organomegaly or tenderness. EXTREMITIES: No edema. NEUROLOGIC: Exam normal. SKIN: Unremarkable. Data 06/10/23 11:12 06/10/23 11:12 A&P Assessment and plan (1) Eosinophilic asthma: (2) Exertional dyspnea: (3) Hypertension: (4) Chest pain: Plan I see no other way to solve this other than coronary angiography. This will more than likely continue to happen unless we get a definitive answer. He is deciding whether he wants to do this today or tomorrow morning. We will proceed when he decides. Consult Attestations 2 Medical Necessity Statement: Admission for management of chest pain with protocol. and Moderate Time for a total of 40 minutes, includes reviewing past or interval history, examining/interviewing patient, placing orders, counseling patient/family/other support, updating patient/family/other support, discussing plan of care with staff, communicating with other healthcare providers, documenting encounter and coordinating care Diagnoses Eosinophilic asthma J82.83 Exertional dyspnea R06.09 Hypertension I10 Chest pain R07.9
--- NOTE | 2023-06-10 16:08 | USCV_ITS ---
Anant Rowland Age: 57 Gender: M : 1965 Exam Date: 06/10/2023 16:28 Ordering Phys: Blane Cleveland MD Technologist: Arnulfo Baker [place] [facility] [place]: angina BP: 161 / 88 HR: 60 Rhythm: Sinus Technical Quality: Adequate MEASUREMENTS (Male / Female) Normal Values 2D ECHO LVOT Diameter 2.0 cm LV Ejection Fraction MOD 2C 72.4 % LV Ejection Fraction 2C AL 73.0 % LA Diameter 4.0 cm LA Width 3.5 cm LA Height 4.8 cm RA Width 3.0 cm RA Height 5.4 cm Aorta at Sinotubular Diameter 2.6 cm M-MODE Aortic Annulus Diameter 2.7 cm LA Ao Ratio MM 1.4 MV E Point Septal Separation 0.3 cm DOPPLER AV Peak Velocity 123.0 cm/s LVOT Peak Velocity 94.0 cm/s AV Area Cont Eq vti 3.0 cm squared AV Area Cont Eq pk 2.5 cm squared MV Peak Velocity 82.0 cm/s MV Area PHT 5.1 cm squared Mitral E to A Ratio 1.4 MV E' Velocity 56.0 cm/s Mitral E to MV E' Ratio 10.6 Mitral E to LV E' Lateral Ratio 9.8 Mitral E to LV E' Septal Ratio 11.6 TR Peak Velocity 331.1 cm/s TR Peak Gradient 43.9 mmHg TR Mean Velocity 260.5 cm/s TR Mean Gradient 28.5 mmHg TR Velocity Time Integral 81.4 cm Right Atrial Pressure 8.0 mmHg Pulmonary Artery Systolic Pressu 51.9 mmHg PV Peak Velocity 87.0 cm/s RV Acceleration Time 0.1 s RV Ejection Time 0.3 s RV AcT/ET 0.4 FINDINGS Left Ventricle Normal left ventricular size, systolic function and wall thickness, with no regional wall motion abnormalities. Grade I/IV diastolic dysfunction (abnormal relaxation filling pattern), normal to mildly elevated filling pressures. Left ventricular ejection fraction is estimated at 60 %. Right Ventricle Normal right ventricular size and systolic function. Normal right ventricular systolic pressure. Right Atrium The right atrium is normal in size. Left Atrium The left atrium is normal in size. Mitral Valve Structurally normal mitral valve without significant stenosis or prolapse. There is no mitral regurgitation. Aortic Valve Structurally normal aortic valve without significant sclerosis or stenosis. There is no aortic regurgitation. Tricuspid Valve Structurally normal tricuspid valve without significant stenosis or regurgitation. Pulmonary artery systolic pressure is normal. Pulmonic Valve Pulmonic valve not well visualized. Pericardium Normal pericardium without effusion. Aorta Normal ascending aorta dimension. IVC Inferior vena cava not visualized. CONCLUSIONS Normal left ventricular size, systolic function and wall thickness, with no regional wall motion abnormalities. Grade I/IV diastolic dysfunction (abnormal relaxation filling pattern), normal to mildly elevated filling pressures. Left ventricular ejection fraction is estimated at 60 %. No change from the prior study dated 02/02/2022 Dr. Wesley Dowd MD (Electronically Signed) Final Date: 10 June 2023 18:46 S
--- NOTE | 2023-06-10 17:00 | XACV_ITS ---
Exam Room: 2 Ht: 183 cm Wt: 84 kg BSA: 2.07 m2 Gender: Male : 1965 Any Known Allergies: No known allergies Exam Priority: Routine Procedure(s): Procedure Description: Diagnostic procedure Procedure Description: PCI procedure Procedure Description: Left Heart Catheterization Procedure Description: Left ventriculography Procedure Description: Drug Eluting Coronary Stent Procedure Description: PTCA Procedure Description: Coronary Angiography Noemí EPSTEIN; Diagnostic Cath Status: Urgent Diagnostic Findings * Patient with somewhat typical chest pain for 4 days with exertion. Admitted without EKG change or troponin elevation. Angiography performed via right radial artery. Patient had anxiety and pain during the movement of the catheters. He then began having chest discomfort prior to insertion of the catheters. * Coronary angiography reveals right coronary artery dominance. The left main contains some mild plaquing in the ostium up to about 10%. The circumflex is relatively small and ends as 2 marginal branches. Circumflex is normal. The LAD is relatively small and is normal. The right coronary artery is a very large dominant vessel and tortuous. There is a 95+ percent stenosis in the midportion with some disease on either side of the significant lesion. The remainder of the vessel is normal.. PCI Status: Urgent PCI LVEF Assessed: Yes PCI Indication: NSTE - ACS Interventional Findings * There is significant tortuosity of the innominate and axillary artery. Unlike the diagnostic catheter, I could not seat the guide in a coaxial fashion or even get it into the ostium of the right coronary artery. Having it outside the ostium I was able to pass a wire through the lesion and down into the distal vessel. I performed an angioplasty of the lesion with a 3.5 x 15 mm balloon. Subsequently I placed a 4 x 20 mm stent. There was some residual stenosis distal to the stent. When trying to exchange the balloon for another balloon catheter the guide pulled back, the wire looped in the aorta and pulled out of the artery completely. I was never able to get the guiding catheter back to a point where I could get the wire down the vessel. The patient then became extremely agitated with rigors and shaking and simply could not hold still. He became so anxious he started to have significant arm pain and chest pain. Because of the tortuosity of the arm vessels two guides became kinked in the axillary artery. After removing those he requested we stop the procedure. We will bring him back tomorrow morning and use the common femoral artery. In the meantime I will give him some Aggrastat since there appeared to be some thrombus distal to the stent. At the time he left the lab his ST segments were normal and he was free of pain. Decision for PCI with Surgical Consult: No PCI for Multi-vessel Disease: No Conclusions 1. One-vessel coronary artery disease status post stent. Recommendations * Return tomorrow morning for common femoral artery entry and relook at the right coronary artery. Interventional RX Recommendation: medical therapy and/or counseling Diagnostic RX Recommendation: medical therapy and/or counseling Anticoagulation: Heparin, Tirofiban Ventriculography Ejection Fraction: 60.0 % Pressures Phase:Rest AO : 127 / 82 ( 99 ) @ 5:19:00 PM 113 / 93 ( 104 ) @ 5:21:00 PM 111 / 93 ( 103 ) @ 5:22:00 PM 151 / 83 ( 115 ) @ 5:28:00 PM 151 / 83 ( 114 ) @ 5:28:00 PM 170 / 95 ( 125 ) @ 5:30:00 PM 141 / 107 ( 125 ) @ 5:36:00 PM 139 / 102 ( 121 ) @ 5:39:00 PM 161 / 99 ( 127 ) @ 5:48:00 PM LV : 151 / -23 / 8 @ 5:27:00 PM 154 / -16 / 11 @ 5:28:00 PM 152 / -16 / 11 @ 5:28:00 PM Valves Phase:DefaultPhase AV : 2.0 @ 6:28:45 PM 2.0 @ 6:28:45 PM AV Mean Gradient: 0.0 @ 6:28:45 PM 0.0 @ 6:28:45 PM Clinical Evaluation EBL: 5mL-10mL Procedural Details Pre-Procedure Time Out. Identified patient by full name and date of as verbalized by the patient/guarantor. Does the consent match the physician's order: Yes. Accurate & Complete Informed Consent: Yes. Inpatient/Outpatient History & Physical on Chart: Yes. If H&P is completed, is and addenduem needed: No; If yes, is the addendum complete: N/A. Visualize and Verify Site with Patient/Guarantor: N/A. Relevant Radiology Images available: Yes. Pre-op teaching completed and patient verbalized understanding. The risks, benefits, and alternatives of sedation and/or procedure were discussed by physician. The patient agrees to continue. Procedure started. [facility] Clinical Fraility Score: 3: Managing Well. Checker Product Design Indications: Worsening Angina. Chest Pain Symptom Assessment: Atypical Angina. Correct patient, site and procedure confirmed by cath team. Current diagnosis: Chest Pain. PERRLA. 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 Lungs clear x 5 lobes. IV Site on Arrival: 18 gauge in the right anticubital. IV Fluids: 0.9% NaCl at KVO. 0 mL infused prior to [facility]. Pre Procedural Pulses: right radial was 3+. Oxygen started at 2liters/min via nasal canula. right groin was prepped with chloroprep then draped in the usual sterile fashion. right radial was prepped with chloroprep then draped in the usual sterile fashion. Baseline sample Acquired. HR: 65 BPM. Physician arrived. Physician scrubbed in. Immediate Pre-Procedure Time Out. Correct Patient: Yes; Correct Procedure: Yes; Correct Site: Yes; Correct Patient Position: Yes; Correct Supplies: Yes; Dried Flammable Prep: Yes; Blood Products Available: N/A;. Lidocaine 1% infiltrated to the right radial. Current Diagnosis : Chest Pain. Arterial access obtained. A 5 algerian TIG catheter in over wire. Multiple views taken of right coronary artery. Catheter redirected to the LCA. Multiple views taken of left coronary artery. A 5 algerian Angled Pig catheter in over wire. EDP Sample taken: LV 151/-24,8; HR: 72 BPM; SpO2: 97%. LV gram performed in [place] @ 10 mL/second for a total of 30 mL. EDP Sample taken: LV 154/-17,11; HR: 88 BPM; SpO2: 97%. Pullback taken: LV 152/-17,11; AO 151/83(115); Mean: 0mmHg, Peak to Peak: 2mmHg, SEP: 8sec/min; HR: 83 BPM; SpO2: 97%. Catheter removed over the exchange wire. 6 algerian JR 4 guide catheter was inserted over the wire. Sycamore guidewire was advanced through the guide catheter to lesion in the prox RCA. Stent inserted to lesion in the prox RCA. Intact stent out OTW. Inflation number : 1 A AB TREK 3.50X15 RX BALLOON was prepped and advanced across the Prox RCA , then inflated to 6 MADAI for 0:07 seconds. Inflation number: 2 The AB TREK 3.50X15 RX BALLOON was reinflated across the Prox RCA, to 10 MADAI for 0:17 seconds. Balloon out. Inflation Number : 3 A NADIA Mtz ELIER 4.0X22 PERICO -Lot Number# [id number] EXP: 08/19/2024 was prepped and advanced across the Prox RCA. The stent was deployed at 12 MADAI for 0:28 seconds. Stent balloon out over wire. Wire out. Guide catheter out over the exchange wire. 6 algerian AL I guide catheter was inserted over the wire. Guide catheter out over the exchange wire. 6 algerian AR 1 guide catheter was inserted over the wire. Guide catheter out. A TR Band was successful obtaining hemostatsis at the Right Radial artery insertion site. Lidocaine 1% infiltrated to the right groin. Patient requests to be taken off the CCL table. Physician scrubbed out. Vital chart was stopped. Post Procedure: Pulses reassessed and unchanged. PERRLA. 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 No VTE prophylaxis required. Medication's Wasted: Lidocaine 1% = 10 mL. Medication's Wasted: Heparin = 1000 units. Medication's Wasted: Nitro = 49.8 mcg. Total IV fluids: 90 mL. Post-op diagnosis: CAD. Complications: None. Estimated blood loss: 5mL-10mL. Responsiveness - Normal response to verbal stimuli; alert and oriented, PERRLA. Airway - Unaffected, no intervention required; spontaneous ventilation. Circulation: W/N/L, pulses unchanged. Nausea/Vomiting: No. Procedure completed. Patient transferred by wheelchair to 1st floor. Access Site Site: Right Radial artery Sheath Size: 6 Fr Hemostasis Method: TR Band Hemostasis Success: Successful Procedure Medications Start: 5:15 PM Stop: 5:15 PM Medication: Versed 1 mg and Fentanyl 25 mcg Amount: 1 Route: I.V. Start: 5:16 PM Stop: 5:16 PM Medication: Versed 1 mg and Fentanyl 25 mcg Amount: 1 Route: I.V. Start: 5:17 PM Stop: 5:17 PM Medication: Nitrogylcerin Amount: 200 mcg Route: I.A. Start: 5:18 PM Stop: 5:18 PM Medication: Heparin Amount: 5000 units Route: I.V. Start: 5:29 PM Stop: 5:29 PM Medication: Fentanyl Amount: 25 mcg Route: I.V. Start: 5:29 PM Stop: 5:29 PM Medication: Fentanyl Amount: 25 mcg Route: I.V. Start: 5:50 PM Stop: 5:50 PM Medication: Fentanyl Amount: 25 mcg Route: I.V. Start: 6:06 PM Stop: 6:06 PM Medication: Versed 1 mg and Fentanyl 25 mcg Amount: 1 Route: I.V. Start: 6:15 PM Stop: 6:15 PM Medication: Versed Amount: 1 mg Route: I.V. Start: 6:15 PM Stop: 6:15 PM Medication: Fentanyl Amount: 50 mcg Route: I.V. Start: 6:23 PM Stop: 6:23 PM Medication: Aggrastat 12.5 mg/250 mL Amount: 42 ml Route: I.V. bolus Start: 6:23 PM Stop: 6:23 PM Medication: Aggrastat 12.5 mg/250 mL Amount: 15.1 ml/hr Route: I.V. drip Start: 6:24 PM Stop: 6:24 PM Medication: Plavix Amount: 600 mg Route: P.O. I, the attending physician, have reviewed and verified all procedure medications. Yes, all medications given per verbal order History/Risk Factors Hypertension: Yes Dyslipidemia: No Peripheral Arterial Disease (PAD): No Myocardial Infarction (TX): No Obesity: No Renal Disease: No Tobacco Use: Never Prior Interventions PCI: No CABG: No Valve Surgery: No Report Signatures Finalized by Dr. Wesley Dowd MD on 06/10/2023 06:39 PM
[2023-06-10 17:06] LABS: D Dimer 0.36 ug/mLFEU (0-0.59)
[2023-06-10 18:27] LABS: Troponin 5 6HR 27.43 ng/L (0-15); Troponin 5 6HR Delta 9.43 ng/L (0-12)
--- NOTE | 2023-06-10 19:15 | PC.NURSE ---
Floor received pt from prosthetics lab technician around 1900 post PCI to RCA. Pt alert and oriented but tired. Tr band on right wrist with distal pulse palpable. Pt complains of slight discomfort in the center chest and on right wrist. Nurse educated pt on why that may be and explained if it got worse to let her know. Pt also educated on restrictions of right wrist. Pt acknowledged understanding. Pt placed on telemetry and will be monitored per protocol.
[2023-06-10] MEDS: atorvastatin 40 mg Tablet PO (20:51)
[2023-06-10] MEDS: tamsulosin 0.4 mg Capsule PO (20:51)
[2023-06-11] VITALS (42 sets, daily range): BP systolic 104–139; BP diastolic 64–90; PULSE 60–88; RESP 1–25; TEMP 36.7–37.6; O2SAT 93–97
--- NOTE | 2023-06-11 02:26 | PC.NURSE ---
TR band removed. Pt complains of slight pain in the right wrist. Pt stated it is better than it was. Nurse educated pt again with restrictions of right wrist and pt stated understanding.
[2023-06-11] MEDS: sodium chloride 0.9% 1,000 ML 100 ML IV ×2 (04:01→09:15)
[2023-06-11 04:35] LABS: Basophils # 0.1 10^3/uL (0.0-0.1); Basophils % 0.4 %; Eosinophils # 0.3 10^3/uL (0.0-0.8); Eosinophils % 2.9 %; Hematocrit 46.6 % (37-53); Lymphocytes # 3.2 10^3/uL (0.8-4.8); Lymphocytes % 27.2 %; Mean Corpuscular HGB Conc 32.8 g/dL (30-55); Mean Corpuscular Volume 88.3 fl (82-101); Mean Platelet Volume 9.7 fL (7.4-10.4); Monocytes % 8.5 %; Neutrophils # 7.16 10^3/uL (1.8-7.7); Neutrophils % 60.7 %; Nucleated Red Blood Cells % 0 %; Platelet Count 308 10^3/cmm (157-399); Red Blood Count 5.28 10^6/uL (3.85-5.65); Red Cell Distribution Width 12.4 % (12.1-15.1); White Blood Count 11.79 10^3/uL (3.29-11.43)
[2023-06-11 04:55] LABS: Alanine Aminotransferase 35 U/L (0-41); Albumin Level 3.9 g/dL (3.5-5.2); Alkaline Phosphatase 118 U/L (40-130); Anion Gap 13.8 (5-19); Aspartate Amino Transferase 29 U/L (0-40); Blood Urea Nitrogen 11 mg/dL (6-20); Calcium 8.8 mg/dL (8.5-10.5); Carbon Dioxide 23 mmol/L (22-29); Chloride 107 mmol/L (98-107); Globulin 2.7 g/dL (1.3-4.6); Glomerular Filtration Rate 77.6 mL/min (90-130); Glucose 99 mg/dL (65-115); Osmolality Calculated 289 mOsm/kg (285-295); Potassium 3.8 mmol/L (3.5-5.1); Sodium 140 mmol/L (136-145); Total Bilirubin 0.6 mg/dL (0.15-1.2); Total Protein 6.6 g/dL (6.6-8.7)
[2023-06-11] MEDS: diphenhydrAMINE 50 mg Capsule PO (05:57)
--- NOTE | 2023-06-11 06:21 | XACV_ITS ---
Exam Room: [facility] Ht: 183 cm Wt: 84 kg BSA: 2.07 m2 Gender: Male : 1965 Any Known Allergies: No known allergies Exam Priority: Routine Procedure(s): Procedure Description: Diagnostic procedure Procedure Description: Coronary Angiography Noemí EPSTEIN; Diagnostic Cath Status: Elective Diagnostic Findings * Patient came in yesterday with fairly typical angina with normal EKG and negative troponins. Catheterization yesterday revealed an very unusual takeoff of the right coronary artery with a 99% stenosis in the proximal to midportion. He also has tortuosity of his innominate and axillary artery. I was able to do the intervention however it was extremely difficult to seat the guide. I was never able to seat the guide in the in the ostium of the vessel. I was able to pass a wire, stent the vessel but at the end of the procedure there appeared to be some thrombus distal to the stent with some residual stenosis. Because of the tortuosity in the shoulder vessels the guide backed out and pulled the wire out. I was never able to get the wire back in. The patient became uncomfortable, agitated and could not hold still. There was good flow in the artery so we stopped deciding to bring him back this morning. I wanted to reassess the area distal to the stent and to evaluate for potential residual thrombus. I did give him Aggrastat last night. * Today I approached it from the groin. Even today there is difficulty seating the guide. He has an unusual takeoff of the right coronary artery and the guide could not be positioned coaxially in the vessel. I was able to get an adequate image of the right coronary artery however. The stent is widely patent. There is a residual stenosis of about 40% distal to the stent at the point of a hairpin turn in the artery. There is no residual thrombus. There is excellent distal flow. Conclusions 1. Minimal residual stenosis distal to the previously placed stent without thrombus and good distal blood flow. Recommendations * Continue medical therapy. Interventional RX Recommendation: medical therapy and/or counseling Diagnostic RX Recommendation: medical therapy and/or counseling Pressures Phase:Rest AO : 94 / 71 ( 83 ) @ 7:12:00 AM Clinical Evaluation EBL: 5mL-10mL Procedural Details Procedure Consent Obtained. Pre-Procedure Time Out. Identified patient by full name and date of as verbalized by the patient/guarantor. Does the consent match the physician's order: Yes. Accurate & Complete Informed Consent: Yes. Inpatient/Outpatient History & Physical on Chart: Yes. If H&P is completed, is and addenduem needed: No; If yes, is the addendum complete: N/A. Visualize and Verify Site with Patient/Guarantor: N/A. Relevant Radiology Images available: Yes. Pre-op teaching completed and patient verbalized understanding. The risks, benefits, and alternatives of sedation and/or procedure were discussed by physician. The patient agrees to continue. Procedure started. Physician arrived. [facility] Clinical Fraility Score: 3: Managing Well. Stock Counter Indications: Stable Known CAD. Chest Pain Symptom Assessment: Atypical Angina. Correct patient, site and procedure confirmed by cath team. Current diagnosis: Chest Pain. PERRLA. Strong, equal hand construction inspector bilaterally. Lungs clear x 5 lobes. IV Site on Arrival: 18 gauge in the left anticubital. IV Fluids: 0.9% NaCl at KVO. 400 mL infused prior to laboratory apparatus glass blower. Oxygen started at 2liters/min via nasal canula. bilateral groins was prepped with chloroprep then draped in the usual sterile fashion. Baseline sample Acquired. HR: 64 BPM. Physician scrubbed in. Immediate Pre-Procedure Time Out. Correct Patient: Yes; Correct Procedure: Yes; Correct Site: Yes; Correct Patient Position: Yes; Correct Supplies: Yes; Dried Flammable Prep: Yes; Blood Products Available: N/A;. Lidocaine 1% infiltrated to the right groin. Arterial access obtained. 6 lithuanian JR 4 guide catheter was inserted over the wire. Multiple views taken of right coronary artery. Physician review of cine films. Guide catheter out. A Suture was successful obtaining hemostatsis at the Right Femoral artery insertion site. Arterial sheath flushed and connected to tranducer and pressure bag with heparinized saline. Post Procedure: Pulses reassessed and unchanged. PERRLA. Strong, equal hand construction inspector bilaterally. No VTE prophylaxis required. Medication's Wasted: Heparin = 4000 units. Medication's Wasted: Other = Fentanyl 50 mcg. Total IV fluids: 30 mL. Complications: None. Estimated blood loss: 5mL-10mL. Responsiveness - Normal response to verbal stimuli; alert and oriented, PERRLA. Airway - Unaffected, no intervention required; spontaneous ventilation. Circulation: W/N/L, pulses unchanged. Nausea/Vomiting: No. Vital chart was stopped. Procedure completed. Patient transferred by bed to 1st floor. Access Site Site: Right Femoral artery Sheath Size: 6 Fr Hemostasis Method: Suture Hemostasis Success: Successful Procedure Medications Start: 6:53 AM Stop: 6:53 AM Medication: Versed Amount: 1 mg Route: I.V. Start: 6:53 AM Stop: 6:53 AM Medication: Fentanyl Amount: 50 mcg Route: I.V. Start: 7:06 AM Stop: 7:06 AM Medication: Versed Amount: 1 mg Route: I.V. I, the attending physician, have reviewed and verified all procedure medications. Yes, all medications given per verbal order History/Risk Factors Hypertension: Yes Dyslipidemia: No Peripheral Arterial Disease (PAD): No Myocardial Infarction (TX): No Obesity: No Renal Disease: No Tobacco Use: Never Prior Interventions PCI: Yes CABG: No Valve Surgery: No Date of PCI: 06/10/2023 Report Signatures Finalized by Dr. Wesley Dowd MD on 06/11/2023 07:38 AM
[2023-06-11] MEDS: budesonide 0.5 mg/2 mL Neb INHALATION (07:59)
[2023-06-11] MEDS: clopidogrel 75 mg Tablet PO (09:15)
[2023-06-11] MEDS: lisinopril 10 mg Tablet PO (09:15)
[2023-06-11] MEDS: aspirin 81 mg EC Tablet PO (09:15)
[2023-06-11] MEDS: amlodipine 10 mg Tablet PO (09:15)
[2023-06-11] MEDS: pantoprazole DR 40 mg Tablet PO (09:17)
--- NOTE | 2023-06-11 11:58 | PM.MISC ---
Miscellaneous Note Purpose of Documentation: Follow-up from second angiogram Note: I repeated the patient's angiogram of the right coronary artery this morning utilizing the right common femoral artery due to the difficulties encountered yesterday. Fortunately, the thrombus has cleared probably as a result of the Aggrastat treatment. Additionally there is only a residual 40% stenosis distal to the stent. Therefore, I performed no further intervention and am treating him medically. He may go home later today provided he has no complications at the right common femoral artery entry site. He should go home on low-dose aspirin, statin, lisinopril, Plavix. His heart rate is running in the mid 60s so we should avoid a beta-ronel at this time. He should be seen by the nurse practitioner in the office in a week to 10 days to assess both entry sites of the right wrist and right groin and to check his chemistry panel. Follow-up with a fireboat operator should be around 3 to 4 months.
--- NOTE | 2023-06-11 14:08 | PC.NURSE ---
Addendum entered by Daly Patino RN 06/11/23 15:22: notified hospitalist and military source operations officer of pt's short live chest tightness when he got up 6 hrs post sheath pull from bed to bathroom. but no chest pain when ambulating. Original Note: pt ambulated from bed to bathroom then down hallways. Pt stated he had some chest tightness lasted for a sec. patient stated no chest pain or tightness when he is ambulating.
--- NOTE | 2023-06-11 16:29 | P.DS_ITS ---
Discharge Providers Date of Admission: 06/10/23 12:01 Date of Discharge: June 11, 2023 Attending Provider at Admission: Blane Cleveland Attending Provider at Discharge: Blane Cleveland Primary Care Provider: Joellen Dash Diagnoses at Discharge Discharge Diagnosis (1) Chest pain: Status: Acute (2) Hypertension: Status: Acute (3) Exertional dyspnea: Status: Acute (4) Eosinophilic asthma: Status: Acute Reason for Visit Reason for Visit: chest pain Brief History: Pleasant 57-year-old gentleman with history of chronic lung disease, he is not sure of the type, noted eosinophilic asthma history, HTN, HLD, secondhand smoke exposure, reports history of NSTEMI in 2021, at that time he had a stress test which was unremarkable. He presents to the hospital today due to over the last 4 days having recurrent episodes of central chest pain radiating to his left jaw particularly triggered by exertion, with rest making it better. He states has been having to rest multiple times when trying to work on the siding of his house due to recurrent episodes, a day ago now started needing to take a break while walking in his yard. He has some chronic cough. Reports is due to his chronic lung disease, without any worsening. Denies chest pain on inspiration, with movement, but does state that some episodes have come on while he was even at rest. Today he had an episode, while he was eating breakfast. Occasionally takes ibuprofen for headaches but not recently. He does report orthopnea having to sleep on several pillows. Hospital Course Hospital Course Overnight no chest pain at rest, but with some gradual rise in troponin from 18-21-27, with concerning symptoms, was assessed by cardiology, with recommendation for coronary angiography underwent assessment on 06/10 with finding of severe lesion in RCA which was treated with stent, with vessel tortuosity, difficult anatomy and access via right wrist assessment could not be completed during the same procedure with possibility of distal clot, underwent further assessment with right groin access this morning which visualized in good position, no proximal or distal clot. He had momentary discomfort in his chest, no recurrence worsening or persistent symptoms, when he had to lay still had some tingling in his right lower extremity but with good perfusion, strong bounding pulses, and states his right lower extremity may fall asleep even when he is sitting on a chair due to him having little padding . He knows to seek medical attention in case of any worsening or new concerning symptoms chest pain or issues with access or related extremities.As discussed with him he is to c ontlizaue on aspirin Plavix, with slow heart rate beta-blockers held off on, he is advised to continue on his other medications, discontinue ibuprofen, avoid NSAIDs, asked to follow-up with primary provider and with cardiology in office. Physical Exam Narrative: Accompanied by family. Const: COMMON NORMALS: patient oriented x3 and alert GENERAL APPEARANCE: cooperative ORIENTATION/CONSCIOUSNESS: Yes awake HENMT: COMMON NORMALS: oropharynx normal Neck/C-Spine: COMMON NORMALS: no JVD Resp: COMMON NORMALS: normal respiratory effort and clear to auscultation bilaterally AUSCULTATION: clear to auscultation bilaterally Cardio: COMMON NORMALS: no JVD, regular rhythm, S1 normal heart sound present, S2 normal heart sound present and No murmurs present (Cardio) RHYTHM: regular rhythm HEART SOUNDS: S1 normal heart sound present and S2 normal heart sound present GI: COMMON NORMALS: Normal to inspection, nondistended, normoactive bowel sounds present, Soft to palpation and non-tender PALPATION: Yes Soft to palpation Extremity: COMMON NORMALS: no joint enlargement and no pedal edema OTHER: Good early PT and DP pulses. Neuro: COMMON NORMALS: patient oriented x3 and moves all extremities SENSORIUM/ORIENTATION: Yes alert Skin: COMMON NORMALS: no rashes or lesions noted GENERAL SKIN EXAM: no rashes or lesions noted Discharge Data Studies Completed and Pending Completed Studies During Hospitalization Category Date Time Status MELTER SUPERVISOR request for service Routine Exams 06/10/23 17:00 Completed MELTER SUPERVISOR request for service Routine Exams 06/11/23 06:21 Completed XR chest 1V portable [id number] Stat Exams 06/10/23 11:00 Completed CV. echo complete* [id number] Routine Ultrasound 06/10/23 16:08 Completed Laboratory Results WBC 11.79 10^3/uL (3.29-11.43) H 06/11/23 04:09 RBC 5.28 10^6/uL (3.85-5.65) 06/11/23 04:09 Hgb 15.30 g/dL (11.27-16.99) 06/11/23 04:09 Hct 46.6 % (37-53) 06/11/23 04:09 MCV 88.3 fl (82-101) 06/11/23 04:09 MCH 29.0 pg (27-33) 06/11/23 04:09 MCHC 32.8 g/dL (30-55) 06/11/23 04:09 RDW 12.4 % (12.1-15.1) 06/11/23 04:09 Plt Count 308 10^3/cmm (157-399) 06/11/23 04:09 MPV 9.7 fL (7.4-10.4) 06/11/23 04:09 Neut % (Auto) 60.7 % 06/11/23 04:09 Lymph % (Auto) 27.2 % 06/11/23 04:09 Borden % (Auto) 8.5 % 06/11/23 04:09 Eos % (Auto) 2.9 % 06/11/23 04:09 Baso % (Auto) 0.4 % 06/11/23 04:09 Neut # (Auto) 7.16 10^3/uL (1.8-7.7) 06/11/23 04:09 Lymph # (Auto) 3.2 10^3/uL (0.8-4.8) 06/11/23 04:09 Borden # (Auto) 1.0 10^3/uL (0.2-0.9) H 06/11/23 04:09 Eos # (Auto) 0.3 10^3/uL (0.0-0.8) 06/11/23 04:09 Baso # (Auto) 0.1 10^3/uL (0.0-0.1) 06/11/23 04:09 Nucleated RBC % (auto) 0 % 06/11/23 04:09 Nucleated RBCs # 0.0 /100WBC 06/11/23 04:09 PT 12.80 SECONDS (12.1-14.9) 06/10/23 11:12 INR 0.93 (0.8-1.2) 06/10/23 11:12 D-Dimer 0.36 ug/mLFEU (0-0.59) 06/10/23 11:12 Sodium 140 mmol/L (136-145) 06/11/23 04:09 Potassium 3.8 mmol/L (3.5-5.1) 06/11/23 04:09 Chloride 107 mmol/L (98-107) 06/11/23 04:09 Carbon Dioxide 23 mmol/L (22-29) 06/11/23 04:09 Anion Gap 13.8 (5-19) 06/11/23 04:09 BUN 11 mg/dL (6-20) 06/11/23 04:09 Creatinine 1.0 mg/dL (0.7-1.2) 06/11/23 04:09 GFR Calculation 77.6 mL/min (90-130) L 06/11/23 04:09 Glucose 99 mg/dL (65-115) 06/11/23 04:09 Calculated Osmolality 289 mOsm/kg (285-295) 06/11/23 04:09 Calcium 8.8 mg/dL (8.5-10.5) 06/11/23 04:09 Total Bilirubin 0.6 mg/dL (0.15-1.2) 06/11/23 04:09 AST 29 U/L (0-40) 06/11/23 04:09 ALT 35 U/L (0-41) 06/11/23 04:09 Alkaline Phosphatase 118 U/L (40-130) 06/11/23 04:09 Troponin T Baseline 18 ng/L (0-15) H 06/10/23 11:12 Troponin T 120 Minute 21.32 ng/L (0-15) H 06/10/23 13:01 Delta Troponin T 3.32 ABS# (0-10) 06/10/23 13:01 Troponin T Hi Sens 6Hr 27.43 ng/L (0-15) H 06/10/23 16:57 Troponin T Hi Sens 6Hr Delta 9.43 ng/L (0-12) 06/10/23 16:57 Total Protein 6.6 g/dL (6.6-8.7) 06/11/23 04:09 Albumin 3.9 g/dL (3.5-5.2) 06/11/23 04:09 Globulin 2.7 g/dL (1.3-4.6) 06/11/23 04:09 Lipase 28 U/L (13-60) 06/10/23 11:12 Vitals Last Vital Signs Temp 98.1 F 06/11/23 11:12 Pulse 72 06/11/23 14:00 Resp 23 H 06/11/23 14:00 BP 113/69 06/11/23 13:45 Pulse Ox 96 06/11/23 14:00 O2 Del Method Room Air 06/11/23 11:12 Discharge Plan Discharge Patient Disposition: Home Condition: Stable Prescriptions: New atorvastatin 40 mg Tablet 40 mg PO BEDTIME Qty: 90 3RF clopidogrel 75 mg Tablet 75 mg PO DAILY Qty: 30 3RF aspirin 81 mg Tablet,Delayed Release (Dr/Ec) 81 mg PO DAILY Qty: 100 3RF amlodipine 10 mg Tablet 10 mg PO DAILY Qty: 30 3RF lisinopril 10 mg Tablet 10 mg PO DAILY Qty: 90 3RF nitroglycerin 0.4 mg Tablet, Sublingual 0.4 mg sublingual Q5M PRN (Reason: Chest Pain) Qty: 25 3RF Continued budesonide-formoterol [Symbicort] 80-4.5 mcg/actuation HFA aerosol inhaler 2 puff inhalation BID Qty: 10.2 3RF albuterol sulfate 90 mcg/actuation HFA aerosol inhaler 2 puff inhalation Q6H PRN (Reason: shortness of breath or wheezing) Qty: 8.5 3RF tamsulosin 0.4 mg capsule 0.4 mg PO DAILY Discontinued lisinopril 10 mg tablet 10 mg PO DAILY amlodipine 10 mg tablet 10 mg PO DAILY Qty: 90 3RF atorvastatin 40 mg tablet 40 mg PO BEDTIME Qty: 90 3RF ibuprofen [Advil] 200 mg Tablet 800 mg PO Q6H PRN (Reason: Pain) aspirin 81 mg Tablet,Delayed Release (Dr/Ec) 81 mg PO DAILY Qty: 60 3RF Discharge Orders: Discharge Order (Routine); Ordered 06/11/23 Ordered By: Blane Cleveland Referrals: Wesley Dowd MD [Physician] - (Your Dr. Dowd follow up appointment will be scheduled during your Cee Trammell appointment. Thank you.) Cee Trammell FNP [Nurse Practitioner] - ([facility] has your information and will be calling you to set up a follow up appointment with Cee Trammell. Please call the number listed if you have any questions or concerns. Thank you. ) Dash,Joellen, PA-C [Primary Care Provider] - 06/20/23 9:30 am Discharge Diet: Cardiac Patient Instructions: Lisinopril (By mouth) (Prinivil, Zestril), Aspirin (By mouth) (Remedios Extra Strength, Remedios Aspirin Children's,..., Amlodipine (By mouth) (Hypertenipine-2.5, Norvasc, Norliqva), Nitroglycerin, Rapid Release (By mouth), Atorvastatin (By mouth) (Lipitor, Atorvaliq), Clopidogrel (By mouth) (Plavix), Coronary Intravascular Stent Placement (DC), Coronary Angioplasty (DC), Chest Pain Stoplight, Opioid Safety, Post Angiogram Home Care Instructions, Post Heart Attack Stoplight Activity Restrictions/Additional Instructions: No lifting over 5 pounds for 2 days. After that resume normal activity. Do not stop taking aspirin and/or Plavix unless directed to do so by medical provider due to risk of stent closure and heart attack. Return to the hospital in case of any worsening or new concerning symptoms. Discharge Attestations Time Spent in Discharge Care*: greater than 30 min Quality Metrics Clinical Quality Measures [ No reported AMI, CVA or VTE this stay] Coding Level of Care Code 17509 Total time (in minutes) for Discharge: 45 Diagnoses Chest pain R07.9 Hypertension I10 Exertional dyspnea R06.09 Eosinophilic asthma J82.83
== END 2023-06-11 17:30 | disposition home or self-care (01) ==
LOC: ER 11:11 → CSU 12:09
PROVIDERS: Internal Medicine Cardiovascular Disease; Admitting Provider Internal Medicine; Emergency Provider Emergency Medicine; PCP Physician Assistant; Visit Provider Internal Medicine
DX: I25.10 Atherosclerotic heart disease of native coronary artery without angina pectoris (principal); R07.9 Chest pain, unspecified; I10 Essential (primary) hypertension; R06.09 Other forms of dyspnea; J82.83 Eosinophilic asthma; E78.5 Hyperlipidemia, unspecified; Z77.22 Contact with and (suspected) exposure to environmental tobacco smoke (acute) (chronic); I25.2 Old myocardial infarction; N40.0 Benign prostatic hyperplasia without lower urinary tract symptoms
CPT/HCPCS: 36415; 71045; 80053; 83690; 84484; 85025; 85378; 85610; 93005; 93306; 93458; 94640; 96365; 96367; 99152; 99153; 99285; C1725; C1769; C1874; C1887; C1894; C9600; G0378; J0461; J1644; J2250; J3010; J3490; J7030; J7626; Q0163; Q9967

== ENCOUNTER → 2023-06-15 14:12 | Outpatient (BNVA) | payer MEDICAID, SELFPAY | PROVIDERS: PCP Physician Assistant; Visit Provider Nurse Practitioner Family | DX: I10 Essential (primary) hypertension (principal); I25.10 Atherosclerotic heart disease of native coronary artery without angina pectoris | CPT/HCPCS: 36415; 80048 ==

== ENCOUNTER → 2023-07-28 11:00 | Outpatient (BNVA) | payer MEDICAID, SELFPAY | PROVIDERS: PCP Physician Assistant; Visit Provider Nurse Practitioner Family | DX: I25.10 Atherosclerotic heart disease of native coronary artery without angina pectoris (principal); R00.1 Bradycardia, unspecified | CPT/HCPCS: 93005 ==

== ENCOUNTER 2023-08-04 09:26 | Outpatient (CLI) | payer MEDICAID, SELFPAY ==
--- NOTE | 2023-08-04 | ECG_ITS ---
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 Interpretive Statements NAME OF STUDY: LEXISCAN SESTAMIBI STRESS TEST INDICATION: [Worsening Angina; Shortness of breath] Procedure: At the baseline, the blood pressure was 128/85 mmHg with a heart rate of 55 bpm. The electrocardiogram showed normal sinus rhythm, normal axis with normal ST and T's. The Lexiscan was infused over a period of 20 seconds. A total of 0.4 mg of Lexiscan was infused. The stress phase was continued for a total of 5 minutes. Heart rate was at the end of stress phase was 88 bpm and a blood pressure of 126/79 mmHg. The EKG at the peak infusion revealed normal sinus rhythm with no significant ST-T wave changes. Sestamibi was injected 20 seconds after the Lexiscan infusion. Blood pressure at the end of recovery phase was 150/88 mmHg with a heart rate of 84 bpm. Conclusion: 1. Normal EKG response to Lexiscan infusion 2. No Lexiscan induced chest pain or cardiac arrhythmia. 3. Normal blood pressure and heart rate response. 4. Sestamibi/sestamibi perfusion scan pending; see separate report. Electronically Signed On 08-07-2023 12:17:07 911 TELECOMMUNICATOR by Km Gary M.D. [id number]
[2023-08-04 09:35] VITALS: BMI 28.1
--- NOTE | 2023-08-04 09:38 | NMCV_ITS ---
NM jimmy perf SPECT r/s* [id number] Anant Rowland Age: 58 Gender: M : 1965 Exam Date: 08/04/2023 10:34 Ordering Phys: Cee Trammell Technologist: MAHIN Mixon Exam Location: [facility] Indications: ATHEROSCLEROTIC HEART DISEASE STRESS TEST Please see separate stress test report in [facility] for full findings IMAGE PROTOCOL Rest/Stress 1 Lexiscan Day Radiopharmaceutical Dose (mCi) Administration Site Administered by Rest: Tc-99m 11.0 IV MAHIN Mixon Sestamibi Stress:Tc-99m 32.9 IV MAHIN Herring Sestamibi Rest: 04-Aug-2023 60 Discovery 630 Stress: 04-Aug-2023 30 Discovery 630 0.4mg Lexiscan. Images obtained in supine and prone position. SPECT RESULTS Technical Quality: Excellent Raw Data Analysis: Normal Image Corrections: No attenuation or motion correction applied Summed Stress Score: 4 Summed Rest Score: 4 Summed Difference Score: 0 PERFUSION FINDINGS There is a medium sized area of fixed perfusion defect seen in inferolateral wall. This is consistent with a medium sized area of prior infarct with no evidence of ischemia in left circumflex artery territory. FUNCTIONAL RESULTS (calculated via Gated SPECT) Stress Image LV EF (%): 74 Stress EDV (mL):109 TID: 0.94 Stress ESV (mL):28 FUNCTIONAL FINDINGS: There is normal left ventricular systolic function. IMPRESSIONS 1. Medium sized area of prior infarct in left circumflex artery territory. No evidence of ischemia. 2. LV systolic function is normal. Km Gary MD (Electronically Signed) Final Date: 06 August 2023 13:51 S
[2023-08-04] MEDS: regadenoson 0.4 Mg/5 ml Syringe IVP (11:12)
[2023-08-04 11:56] VITALS: BP 145/74; PULSE 68
== END 2023-08-04 09:27 | disposition home or self-care (01) ==
LOC: CDL 09:28
PROVIDERS: PCP Physician Assistant; Visit Provider Nurse Practitioner Family
DX: I25.119 Atherosclerotic heart disease of native coronary artery with unspecified angina pectoris (principal); R53.83 Other fatigue; R06.02 Shortness of breath; I25.2 Old myocardial infarction
CPT/HCPCS: 36415; 78452; 93017; 96374; A9500; J2785

== ENCOUNTER 2023-08-05 12:24 | Outpatient (CLI) | payer MEDICAID, SELFPAY ==
--- NOTE | 2023-08-05 13:00 | USCV_ITS ---
Anant Rowland Age: 58 Gender: M : 1965 Exam Date: 08/05/2023 13:14 Ordering Phys: Cee Trammell Technologist: ALFA Exam Location: [facility] [place] Indication: [place] BP: 129 / 85 HR: 63 Rhythm: Sinus Technical Quality: Adequate MEASUREMENTS (Male / Female) Normal Values 2D ECHO LVOT Diameter 2.0 cm LV Ejection Fraction MOD 2C 60.2 % LV Ejection Fraction 2C AL 62.1 % LA Diameter 3.5 cm LA Width 2.7 cm LA Height 4.7 cm RA Width 3.9 cm RA Height 4.7 cm Aorta at Sinotubular Diameter 2.5 cm M-MODE Aortic Annulus Diameter 2.9 cm LA Ao Ratio MM 1.2 MV E Point Septal Separation 0.4 cm DOPPLER AV Peak Velocity 132.0 cm/s LVOT Peak Velocity 107.0 cm/s AV Area Cont Eq vti 3.1 cm squared AV Area Cont Eq pk 2.6 cm squared MV Peak Velocity 69.0 cm/s MV Area PHT 2.2 cm squared Mitral E to A Ratio 0.8 MV E' Velocity 31.5 cm/s Mitral E to MV E' Ratio 5.3 Mitral E to LV E' Lateral Ratio 4.2 Mitral E to LV E' Septal Ratio 7.5 TR Peak Velocity 182.3 cm/s TR Peak Gradient 13.3 mmHg TR Mean Velocity 149.7 cm/s TR Mean Gradient 9.4 mmHg TR Velocity Time Integral 55.5 cm TV Peak E Velocity 49.0 cm/s Right Atrial Pressure 8.0 mmHg Pulmonary Artery Systolic Pressu 21.3 mmHg PV Peak Velocity 97.0 cm/s RV Acceleration Time 0.2 s RV Ejection Time 0.3 s RV AcT/ET 0.5 FINDINGS Left Ventricle Left ventricle is normal in size. LV systolic function is normal with EF of 60 to 65%. No regional wall motion abnormalities are seen. Grade 1 diastolic dysfunction. Right Ventricle Normal size and function Right Atrium Normal in size Left Atrium Normal in size Mitral Valve Structurally normal mitral valve. Mild mitral regurgitation. Aortic Valve Structurally normal aortic valve. No significant stenosis or regurgitation. Tricuspid Valve Mild tricuspid regurgitation. Insufficient TR jet to evaluate RVSP. Pulmonic Valve Not well-visualized. Pericardium Normal Aorta Normal in size IVC Appears to be normal CONCLUSIONS LV systolic function is normal with EF of 60 to 65%. Grade 1 diastolic dysfunction. Mild mitral regurgitation Mild tricuspid regurgitation Compared to prior echocardiogram from 2021, no significant changes are seen. Km Gary MD (Electronically Signed) Final Date: 14 August 2023 20:23 S
== END 2023-08-05 12:25 | disposition home or self-care (01) ==
LOC: RAD 12:24
PROVIDERS: PCP Physician Assistant; Visit Provider Nurse Practitioner Family
DX: I25.10 Atherosclerotic heart disease of native coronary artery without angina pectoris (principal); I08.1 Rheumatic disorders of both mitral and tricuspid valves; Z95.5 Presence of coronary angioplasty implant and graft
CPT/HCPCS: 93306

== ENCOUNTER 2023-09-19 08:06 | Outpatient (CLI) | payer MEDICAID, SELFPAY ==
--- NOTE | 2023-09-19 08:30 | CT_ITS ---
WS: [id number] CT PARANASAL SINUSES HISTORY: Concerns for Chronic Sinusitis TECHNIQUE: Contiguous 2.0 mm axial images obtained through the sinuses. Images are reconstructed in s agittal and coronal planes. All CT scans at [facility] use at least one of these dose optimiz ation techniques: automated exposure control; mA and/or kV adjustment per patient size (includes targ eted exams where dose is matched to clinical indication); or iterative reconstruction. DLP: 329.54 mGy.cm COMPARISON: None available. Frontal sinuses: Normal. Sphenoid sinus: Normal. Ethmoid sinuses: Normal. Maxillary sinus: Normal. No air-fluid levels. Ostiomeatal unit: No complete obstruction of the ostiomeatal units. There is a very small amount of s oft tissue partially obstructing the RIGHT ostiomeatal unit. Normal appearance of the iker alberto. C ribriform plate is normal. No significant deviation or spurring of the nasal septum. Normal orbits and globes. No destructive claudia ne lesions. IMPRESSION: 1. No evidence for acute or chronic sinusitis. 2. Patent ostiomeatal units.
== END 2023-09-19 08:07 | disposition home or self-care (01) ==
LOC: RAD 08:06
PROVIDERS: PCP Physician Assistant; Visit Provider Otolaryngology
DX: J32.9 Chronic sinusitis, unspecified (principal)
CPT/HCPCS: 70486

== ENCOUNTER 2024-10-23 08:02 | Outpatient (CLI) | payer MEDICAID, SELFPAY ==
--- NOTE | 2024-10-23 | ECG_ITS ---
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 Interpretive Statements LEXISCAN SESTAMIBI STRESS TEST Procedure: At the baseline, the blood pressure was 143/81 mmHg with a heart rate of 55 bpm. The electrocardiogram showed normal sinus rhythm, normal axis with normal ST and T's. The Lexiscan was infused over a period of 20 seconds. A total of 0.4 mg of Lexiscan was infused. The stress phase was continued for a total of 5 minutes. Heart rate was at the end of stress phase was 76 bpm and a blood pressure of 127/78 mmHg. The EKG at the peak infusion revealed normal sinus rhythm with no significant ST-T wave changes. Sestamibi was injected 20 seconds after the Lexiscan infusion. Blood pressure at the end of recovery phase was 132/81 mmHg with a heart rate of 80 bpm. Conclusion: 1. Normal EKG response to Lexiscan infusion 2. No Lexiscan induced chest pain or cardiac arrhythmia. 3. Normal blood pressure and heart rate response. 4. Sestamibi/sestamibi perfusion scan pending; see separate report. Electronically Signed On 11-05-2024 10:58:07 CDT by Km Gary M.D. [id number]
--- NOTE | 2024-10-23 08:19 | NMCV_ITS ---
NM jimmy perf SPECT r/s* [id number] Anant Rowland Age: 59 Gender: M : 1965 Exam Date: 10/23/2024 09:03 Ordering Phys: Km Gary M.D ([email or web address]) Technologist: MAHIN Mane Exam Location: [facility] Indications: cp STRESS TEST Please see separate stress test report in [facility] for full findings IMAGE PROTOCOL Rest/Stress 1 Lexiscan Day Radiopharmaceutical Dose (mCi) Administration Site Administered by Rest: Tc-99m 10.4 IV Mily Pham, EXTENSION COURSE COUNSELOR Sestamibi Stress:Tc-99m 32.8 IV Mily Pham, EXTENSION COURSE COUNSELOR Sestamibi Rest: 23-Oct-2024 60 Discovery 630 Stress: 23-Oct-2024 30 Discovery 630 0.4mg Lexiscan. Images obtained in supine and prone position. SPECT RESULTS Technical Quality: Good Raw Data Analysis: Normal Image Corrections: No attenuation or motion correction applied Summed Stress Score: 2 Summed Rest Score: 2 Summed Difference Score: 1 PERFUSION FINDINGS Small area of moderate decrease tracer uptake in the mid inferolateral segment. Some reversibility was noted in this area at rest. However with the prone imaging, no significant Perfusion normalities were noted FUNCTIONAL RESULTS (calculated via Gated SPECT) Stress Image LV EF (%): 66 Stress EDV (mL):102 TID: 1.03 Stress ESV (mL):35 FUNCTIONAL FINDINGS: Segmental wall motion analysis revealing no gross wall motion abnormalities IMPRESSIONS 1. Myocardial perfusion imaging revealing a small area of reversible defect in the mid inferolateral segment suggesting ischemia in the distribution of the left circumflex artery. However because of the inconsistency with the prone imaging, this could be artifactual. Clinical correlation is recommended(the summed difference score was 1) 2. Normal LV ejection fraction of 66%. 3. LV wall motion analysis revealing no gross wall motion abnormalities. 4. Normal LV volume Dr Riya Angeles MD [facility] (Electronically Signed) Final Date: 23 October 2024 13:35 S
[2024-10-23 08:21] VITALS: BMI 30.1
[2024-10-23] MEDS: regadenoson 0.4 Mg/5 ml Syringe IVP (09:31)
[2024-10-23 09:42] VITALS: BP 132/81; PULSE 81
--- NOTE | 2024-10-23 12:45 | USCV_ITS ---
Anant Rowland Age: 59 Gender: M : 1965 Exam Date: 10/23/2024 08:42 Ordering Phys: Km Gary M.D ([email or web address]) Technologist: Exam Location: [facility] [place] Indication: chest pain BP: 120 / 80 HR: 60 Rhythm: Sinus Technical Quality: MEASUREMENTS (Male / Female) Normal Values 2D ECHO LV Diastolic Diameter PLAX 4.3 cm 4.2 - 5.9 / 3.9 - 5.3 cm IVS Diastolic Thickness 1.1 cm 0.6 - 1.0 / 0.6 - 0.9 cm IVS Systolic Thickness 1.3 cm LVPW Diastolic Thickness 1.5 cm 0.6 - 1.0 / 0.6 - 0.9 cm LVPW Systolic Thickness 1.5 cm LVOT Diameter 2.0 cm LV Ejection Fraction 2D Teich 67.3 % LV Ejection Fraction MOD 4C 67.4 % LV Ejection Fraction MOD 2C 66.3 % LV Ejection Fraction 2C AL 66.0 % LA Diameter 4.4 cm RA Systolic Volume 4C AL 30.3 ml RA Systolic Volume 4C MOD 28.6 ml Aorta at Sinotubular Diameter 3.1 cm IVC Diameter 1.5 cm M-MODE LA Ao Ratio MM 1.3 AV Cusp Separation MM 2.2 cm DOPPLER AV Peak Velocity 112.0 cm/s LVOT Peak Velocity 92.0 cm/s AV Area Cont Eq vti 3.5 cm squared AV Area Cont Eq pk 2.7 cm squared MV Peak Velocity 95.0 cm/s MV Area PHT 3.7 cm squared Mitral E to A Ratio 1.5 TV Peak Velocity 251.0 cm/s TR Peak Velocity 277.0 cm/s TR Peak Gradient 30.7 mmHg TV Peak E Velocity 102.0 cm/s PV Peak Velocity 114.0 cm/s FINDINGS Left Ventricle Left ventricle is normal in size. LV systolic function is normal with EF of 60-65%. No regional wall motion abnormalities are seen. Right Ventricle Normal in size and function Right Atrium Normal in size Left Atrium Normal in size Mitral Valve Structurally normal mitral valve. Trace mitral regurgitation. Aortic Valve Structurally normal aortic valve. No significant stenosis or regurgitation Tricuspid Valve Mild tricuspid regurgitation. Pulmonary artery systolic pressure is normal. Pulmonic Valve Not well visualized Pericardium Normal Aorta Normal in size IVC Appears to be normal CONCLUSIONS LV systolic function is normal with EF of 60-65% Trace mitral regurgitation Mild tricuspid regurgitation Compared to prior echocardiogram from 2023, no significant changes are seen Km Gary MD (Electronically Signed) Final Date: 04 Nov 2024 14:47 S
== END 2024-10-23 08:03 | disposition home or self-care (01) ==
LOC: CDL 08:04
PROVIDERS: PCP Physician Assistant; Visit Provider Internal Medicine
DX: R07.9 Chest pain, unspecified (principal); R06.02 Shortness of breath; I07.1 Rheumatic tricuspid insufficiency; R93.1 Abnormal findings on diagnostic imaging of heart and coronary circulation
CPT/HCPCS: 36415; 78452; 93017; 93306; 96374; A9500; J2785

== ENCOUNTER → 2024-11-05 11:36 | Outpatient (BNVA) | payer MEDICAID, SELFPAY | PROVIDERS: PCP Physician Assistant; Visit Provider Nurse Practitioner Family | DX: I10 Essential (primary) hypertension (principal); R00.1 Bradycardia, unspecified | CPT/HCPCS: 93005 ==

== ENCOUNTER 2025-03-25 07:08 | Observation (INO) | payer MEDICAID, SELFPAY ==
[2025-03-25] VITALS (12 sets, daily range): BP systolic 140–187; BP diastolic 86–112; PULSE 70–100; RESP 17–22; TEMP 36.4–37.3; O2SAT 92–100
--- OUTSIDE RECORDS SUMMARY | 2025-03-25 07:14 | XMS_ITS | Encounter Summary ---
Author Organization [facility] Address [address] [place] [address] Care Team Providers Care Volunteer Services Supervisor Name Role Phone Unavailable Primary Care Provider Unavailabl e Encounter Details Date Type Department Care Team (Latest Contact Info) Description 03/29/2006 Outpatient Historical [facility] [place] [address] [phone] Festus Beltre MD [address] [place] [phone] Unspecified Constipation (Primary Dx) Social History Tobacco Use Types Packs/Day Years Used Date Smoking Tobacco: Never Assessed Sex and Gender Information Value Date Recorded Sex Assigned at Not on file 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
--- OUTSIDE RECORDS SUMMARY | 2025-03-25 07:14 | XMS_ITS | Encounter Summary ---
Author Organization [facility] Address [address] [place] [address] Care Team Providers Care Sanitation Associate Name Role Phone Unavailable Primary Care Provider Unavailabl e Encounter Details Date Type Department Care Team (Latest Contact Info) Description 05/12/[address] 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
--- OUTSIDE RECORDS SUMMARY | 2025-03-25 07:14 | XMS_ITS | Encounter Summary ---
Author Organization [facility] Address [address] [place] [address] Care Team Providers Care Jewelry Finisher Name Role Phone Unavailable Primary Care Provider Unavailabl e Encounter Details Date Type Department Care Team (Latest Contact Info) Description 01/26/2000 Outpatient Historical [facility] Ata Joe MD NO ADDRESS ON FILE Degeneration of lumbar or lumbosacral intervertebral disc (Primary Dx) Social History Tobacco Use Types Packs/Day Years Used Date Smoking Tobacco: Never Assessed Sex and Gender Information Value Date Recorded Sex Assigned at Not on file 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
--- OUTSIDE RECORDS SUMMARY | 2025-03-25 07:14 | XMS_ITS | Encounter Summary ---
Author Organization [facility] Address [address] [place] [address] Care Team Providers Care Veterinary Assistant Technician Name Role Phone Unavailable Primary Care Provider Unavailabl e Encounter Details Date Type Department Care Team (Late st Contact Info) Description 04/11/2006 Outpatient Historical [facility] [place] [address] [place] [phone] Dennis Vera MD [address] [place] [address] [address] [place] [address] Social History Tobacco Use Types Packs/Day Years Used Date Smoking Tobacco: Never Assessed Sex and Gender Information Value Date Recorded Sex Assigned at Not on file 

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
--- OUTSIDE RECORDS SUMMARY | 2025-03-25 07:14 | XMS_ITS | Encounter Summary ---
Author Organization [facility] Address [address] [place] [address] Care Team Providers Care Management Engineer Name Role Phone Unavailable Primary Care Provider Unavailabl e Encounter Details Date Type Department Care Team (Latest Contact Info) Description 12/15/2005 Outpatient Historical [facility] [place] [address] [phone] Festus Beltre MD [address], [place] [phone] Disorders of Sacrum (Primary Dx) Social History Tobacco Use Types Packs/Day Years Used Date Smoking Tobacco: Never Assessed Sex and Gender Information Value Date Recorded Sex Assigned at Not on file 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
--- OUTSIDE RECORDS SUMMARY | 2025-03-25 07:14 | XMS_ITS | Encounter Summary ---
Author Organization [facility] Address [address] [place] [address] Care Team Providers Care Hazmat Tanker Driver Name Role Phone Unavailable Primary Care Provider Unavailabl e Encounter Details Date Type Department Care Team (Latest Contact Info) Description 07/21/2006 Outpatient Historical [facility] [place] [address] [phone] Festus Beltre MD [address] [place] [phone] Diverticulosis of Colon (Primary Dx) Social History Tobacco Use Types Packs/Day Years Used Date Smoking Tobacco: Never Assessed Sex and Gender Information Value Date Recorded Sex Assigned at Not on file 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
--- OUTSIDE RECORDS SUMMARY | 2025-03-25 07:14 | XMS_ITS | Encounter Summary ---
Author Organization [facility] Address [address] [place] [address] Care Team Providers Care Mixed Crop And Livestock Farm Worker Name Role Phone Unavailable Primary Care Provider Unavailabl e Encounter Details Date Type Department Care Team (Latest Contact Info) Description 05/12/[address] 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
--- OUTSIDE RECORDS SUMMARY | 2025-03-25 07:14 | XMS_ITS | Clinical Summary ---
Author Organization [facility] Address [address] [facility] Attn: [place] [address] Care Team Providers Care Hat Maker Name Role Phone Unavailable Primary Care Provider Unavailabl e Allergies No known active allergies Medications ondansetron (ZOFRAN ODT) 4 mg Tablet, Rapid Dissolve Take 1 Tablet (4 mg) by mouth every 6 hours as needed for Nausea. 15 Tablet 0 6 Active cyclobenzaprine (FLEXERIL) 10 mg tablet Take 1 Tablet (10 mg) by mouth 3 times daily as needed for Spasm. 15 Tablet None 6 Active ipratropium/alb uterol sulfate (COMBIVENT INHALATION) Take 2 Puffs by inhalation. 6 Active amLODIPine (NORVASC) 10 mg tablet Take 1 Tablet by mouth daily. 5 Active atorvastatin (LIPITOR) 40 mg tablet Take 40 mg by mouth daily at bedtime. 5 Active lisinopriL (PRINIVIL) 10 mg tablet Take 1 Tablet by mouth daily. 5 Active clopidogreL (PLAVIX) 75 mg Tablet Take 1 Tablet by mouth daily. 5 Active tamsulosin (FLOMAX) 0.4 mg capsule take 1 capsule by mouth at bedtime 5 Active pantoprazole (Protonix) 40 mg Tablet, Delayed Release (E.C.) Take 1 Tablet (40 mg) by mouth 2 times daily. 60 Tablet 2 5 Active Symbicort 160-4.5 mcg/actuation HFA Aerosol Inhaler inhale 2 puffs by mouth twice daily in the morning and evening Active Ventolin HFA 90 mcg/actuation inhaler Take 2 Puffs by inhalation every 4 hours as needed. 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 Hold for a BP less than 100 or a heart rate less than 60 30 Tablet 6 Active Active Problems Problem Noted Date Diagnosed Date Lower GI bleed 12/15/2024 Upper GI bleed 12/13/2024 CAD (coronary atherosclerotic disease) Lower urinary tract symptoms (LUTS) 12/13/2024 Encounters Date Type Department Care Team Description 03/12/2025 External Device Data STL ABSTRACTION Provider, Abstract 02/27/2025 9:26 AM CDT - 02/27/2025 11:59 PM CDT Hospital Encounter [facility] [address] [place] [phone] Madhav Garcia MD Discharge Disposition: Home or Self Care 02/27/2025 External Device Data STL ABSTRACTION Provider, Abstract 02/26/2025 External Device Data STL ABSTRACTION Provider, Abstract 02/20/2025 External Device Data STL ABSTRACTION Provider, Abstract 01/29/2025 External Device Data STL ABSTRACTION Provider, Abstract 01/29/2025 External Device Data STL ABSTRACTION Provider, Abstract 01/29/2025 External Device Data STL ABSTRACTION Provider, Abstract 01/21/2025 11:45 AM CDT - 01/21/2025 11:59 PM CDT Hospital Encounter [facility] [address] [place] [phone] Madhav Garcia MD Discharge Disposition: Home or Self Care 01/21/2025 11:44 AM CDT - 01/21/2025 11:59 PM CDT Hospital Encounter [facility] [address] [place] [phone] Madhav Garcia MD Discharge Disposition: Home or Self Care 01/17/2025 Telephone [facility] [address] [place] [phone] Kaykay Gutierrez RN follow up 01/16/2025 External Device Data STL ABSTRACTION Provider, Abstract 01/09/2025 Results Follow-Up [facility] [place] [address] [place] [address] Madhav Garcia MD NM PHARMACOLOGICAL STRESS TEST 01/09/2025 Orders Only [facility] [address] [place] [phone] Provider, Abstract 01/08/2025 Abstract [facility] [address] [place] [phone] Provider, Abstract 01/07/2025 Results Follow-Up [facility] [place] [address] [place] [phone] Madhav Garcia MD LIPID PANEL, COMPREHENSIVE METABOLIC PANEL, BRAIN NATRIURETIC PEPTIDE, BNP OR PROBNP, Additional followed-up results: 3 01/03/2025 2:40 PM CDT Procedure visit [address] [phone] 01/02/2025 9:30 AM CDT Office Visit [facility] [address] [place] [phone] Madhav Garcia MD Mixed hyperlipidemia (Primary Dx); 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 [phone] Evelia Zapata RN GI PATHOGEN PCR PANEL 12/31/2024 10:49 PM CDT - 01/01/2025 12:43 AM CDT Emergency [facility] [place] [phone] Felisha Stewart MD Acute diarrhea (Primary Dx); LU (acute kidney injury) Discharge Disposition: Home or Self Care 12/31/2024 Travel 12/25/2024 External Device Data STL ABSTRACTION Provider, Abstract from Last 3 Months Family History Medical History Relation Name Comments No Known Problems Father COPD Mother Relation Name Status Comments Father Mother Social History Tobacco Use Types Packs/Day Years Used Date Smoking Tobacco: Never Smokeless Tobacco: Never Tobacco Cessation:Counseling Given: Not Answered Alcohol Use Standard Drinks/Week Comments No 0 (1 standard drink = 0.6 oz pur e alcohol) Feeling Safe Answer Date Recorded Are you in a relationship wi th someone who hurts you emotionally and/or physically? No 12/31/2024 Food Insecurity Answer Date Recorded Patient needs follow up regardin 12/14/2024 Transportation Needs Answer Date Record ed Patient needs follow up regardin 12/14/2024 Utility Needs Answer Date Recorded Patient needs follow up regardin 12/14/2024 Sex and Gender Information Value Date Recorded Sex Assigned at Not on file Legal Sex Male 6:43 AM [employer] Gender Identity Not on file Sexual Orientation Not on file Last Filed Vital Signs Vital Sign Reading Time Taken Comments Blood Pressure 126/62 01/02/2025 9:21 AM CDT Pulse 69 01/02/2025 9:21 AM CDT Temperature 37.5 C (99.5 F) 12/31/2024 8:23 PM CDT Respiratory Rate 17 12/31/2024 10:57 PM CDT Oxygen Saturation 96% 01/02/2025 9:21 AM CDT Inhaled Oxygen Concentration - - Weight 86.5 kg (190 lb 9.6 oz) 01/02/2025 9:21 A M CDT Height 172.7 cm (5' 8 ) 01/02/2025 9:21 AM CDT Body Mass Index 28.98 01/02/2025 9:21 AM CDT Plan of Treatment Upcoming Encounters Date Type Department Care Team (Late st Contact Info) Description 04/10/2025 9:40 AM CDT Office Visit [facility] [address] [place] [phone] Madhav Garcia MD [address] [place] [phone] Keshia Luis, [employer] [address] [place] [phone] Health Maintenance Due Date Last Done Comments Pre-Diabetes and Diabetes Screening 1965 DTAP/TDAP/TD VACCINES (1 - Tdap) 1986 HEPATITIS B VACCINES (1 of 3 - 19+ 3-dose series) 11/1986 COLORECTAL SCREENING 2012 Colorectal Cancer Screening 2012 FIT-DNA Q 3 years 2012 FIT/FOBT Q 1 year 2012 Flex Sig/CT Colonography Q 5 years 2012 ZOSTER VACCINE (1 of 2) 2017 INFLUENZA VACCINE (#1) 2025 Procedures Procedure Name Priority Date/Time Associated Diagnosis Comments ECHO COMPLETE Routine 02/27/2025 10:05 AM CDT Mixed hyperlipidemia 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 PET HEART PERF R&S W CT MULTI Routine 01/21/2025 1:26 PM CDT Mixed hyperlipidemia 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 NM PHARMACOLOGICAL STRESS TEST Routine 01/21/2025 12:51 PM CDT Chest pain in adult CBC WITH DIFFERENTIAL Routine 01/03/2025 2:15 PM CDT Lower GI bleed BRAIN NATRIURETIC PEPTIDE, BNP OR PROBNP Routine 01/03/2025 2:12 PM CDT Mixed hyperlipidemia 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 COMPREHENSIVE METABOLIC PANEL Routine 01/03/2025 2:12 PM CDT Mixed hyperlipidemia 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 LIPID PANEL Routine 01/03/2025 2:12 PM CDT Mixed hyperlipidemia 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 GI PATHOGEN PCR PANEL Stat 01/01/2025 12:17 AM CDT COMPREHENSIVE METABOLIC PANEL Stat 12/31/2024 12:49 PM CDT CBC WITH DIFFERENTIAL Stat 12/31/2024 12:49 PM CDT TYPE AND SCREEN Stat 12/31/2024 12:44 PM CDT from Last 3 Months Results * ECHO COMPLETE - CONTRAST AND STRAIN IF INDICATED (02/27/2025 10:05 AM CDT) [facility] Signature EJECTION FRACTION 55 INTERFACE SYSTEM 02/27/2025 9:37 AM CDT Narrative INTERFACE SYSTEM - 02/27/2025 4:55 PM CDT [facility] [address] [place] [id number] Transthoracic Echocardiography Patient: Anant Rowland Study ID: PREMA Liang Gender: M : 1965 Age: 59 Room: 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 Labs, prior tests, procedures, and surgery: Stress nuclear imaging (01/21/2025). EF was 68%. Summary and Conclusion: - Left ventricle: The cavity size is normal. Wall thickness is normal. Global systolic function is normal. For Epic reporting: the left ventricular ejection fraction is 55% by visual assessment. No diagnostic regional wall motion abnormality identified. Left ventricular diastolic function parameters are normal for the patients age. - Right ventricle: The cavity size is normal. Systolic function is normal. The estimated peak pressure is 34mm Hg. - Left atrium: The atrium is upper normal to mildly dilated. - Mitral valve: There is mild regurgitation. - Tricuspid valve: There is mild regurgitation. Procedure information: No prior study is available for comparison. Study status: Routine. Procedure: A transthoracic echocardiogram was performed. Image quality was adequate. Scanning was performed from the parasternal, apical, subcostal, and suprasternal notch acoustic windows. There were no complications. Study components: M-mode, 2D, complete spectral Doppler, and color Doppler. Height: 172.7cm. Height: 68in. Weight: 86.5kg. Weight: 190.6lb. BMI: 29kg/m^2. BSA: 2.06m^2. Blood pressure: 126/62 Study date: 02/27/2025. Study time: 09:37 AM. Location: Echo laboratory. Cardiac Anatomy: LEFT VENTRICLE: The cavity size is normal. Wall thickness is normal. Global systolic function is normal. For Epic reporting: the left ventricular ejection fraction is 55% by visual assessment. No diagnostic regional wall motion abnormality identified. The longitudinal strain is -21.9% (Normal range is -18 to -25). Left ventricular diastolic function parameters are normal for the patients age. RIGHT VENTRICLE: The cavity size is normal. Systolic function is normal. The estimated peak pressure is 34mm Hg. LEFT ATRIUM: The atrium is upper normal to mildly dilated. RIGHT ATRIUM: The atrium is normal in size. ATRIAL SEPTUM: Not well visualized. AORTIC VALVE: The valve is trileaflet. Mobility is not restricted. There is no stenosis. There is no significant regurgitation. MITRAL VALVE: Mobility is not restricted. No evidence for prolapse. There is no evidence for stenosis. There is mild regurgitation. TRICUSPID VALVE: Mobility is unrestricted. There is no evidence for stenosis. There is mild regurgitation. PULMONIC VALVE: Not well visualized. There is no evidence for stenosis. There is trace regurgitation. PERICARDIUM: There is no pericardial effusion. AORTA: Aortic root: The root is not dilated. Measurements Left ventricle Value Left ventricle continued Value GLS, 2D -21.9 % E/e', med rodger, TDI 9 KATHI, LAX 5.0 cm E', avg, TDI 8.9 cm/sec ESD, LAX 3.2 cm E/e', avg, TDI 8 KATHI/bsa, LAX 2.4 cm/m^2 ESD/bsa, LAX 1.5 cm/m^2 LVOT Value FS, LAX 36 % Peak antonella, S 77.42 cm/sec FS, LAX chord 36 % Peak grad, S 2 mm Hg ESD major ax, A4C 7.4 cm ESD/bsa major ax, A4C 3.6 cm/m^2 Right ventricle Value KATHI minor ax, A4C 7.4 cm KATHI, LAX 3.0 cm KATHI/bsa minor ax, A4C 3.6 cm/m^2 TAPSE, MM 2.7 cm KATHI major ax, A2C 8.4 cm S' lateral 14.3 cm/sec ESD major ax, A2C 7.0 cm KATHI/bsa major ax, A2C 4.1 cm/m^2 Left atrium Value ESD/bsa major ax, A2C 3.4 cm/m^2 AP dim, ES 4.4 cm IVS, ED 1.0 cm AP dim index, ES 2.1 cm/m^2 ESD 3.2 cm SI dim, A4C 5.4 cm ESD/bsa 1.5 cm/m^2 Area ES, A4C 19 cm^2 FS 36 % Vol, S 59 ml PW, ED 0.9 cm Vol/bsa, S 29 ml/m^2 IVS/PW, ED 1.16 Vol, ES, 1-p A4C 53 ml EDV 117 ml Vol/bsa, ES, 1-p A4C 26 ml/m^2 ESV 40 ml Vol, ES, 1-p A2C 54 ml EF 66 % Vol/bsa, ES, 1-p A2C 26 ml/m^2 SV 40 ml Vol, ES, 2-p 54 ml EDV/bsa 57 ml/m^2 Vol/bsa, ES, 2-p 26 ml/m^2 ESV/bsa 20 ml/m^2 Vol, ES, A/L 60 ml SV/bsa 20 ml/m^2 Vol/bsa, ES, A/L 29 ml/m^2 EDV, 1-p A2C 72 ml ESV, 1-p A2C 46 ml Right atrium Value EF, 1-p A2C 64 % Area, ES, A4C 13 cm^2 SV, 1-p A2C 77 ml EDV/bsa, 1-p A2C 35 ml/m^2 Aortic valve Value ESV/bsa, 1-p A2C 22 ml/m^2 Peak v, S 115.95 cm/sec SV/bsa, 1-p A2C 37.3 ml/m^2 Peak grad, S 5 mm Hg EDV, 1-p A4C 101 ml LVOT/AV, Vpeak ratio 0.67 ESV, 1-p A4C 32 ml EF, 1-p A4C 68 % Mitral valve Value SV, 1-p A4C 69 ml Peak E 66.76 cm/sec EDV/bsa, 1-p A4C 49 ml/m^2 Peak A 62.5 cm/sec ESV/bsa, 1-p A4C 16 ml/m^2 Decel slope 338.7 cm/s^2 SV/bsa, 1-p A4C 33 ml/m^2 Decel time 197 ms EDV, 2-p 86 ml Peak E/A ratio 1.07 ESV, 2-p 30 ml EF, 2-p 65 % Tricuspid valve Value SV, 2-p 26 ml TR peak v 278.48 cm/sec EDV/bsa, 2-p 42 ml/m^2 Peak RV-RA grad, S 31 mm Hg ESV/bsa, 2-p 14 ml/m^2 SV/bsa, 2-p 12.7 ml/m^2 Aortic root Value EDV, MM Teich. 117 ml Root diam 3.3 cm EF, MM Teich. 66 % Root diam/bsa 1.6 cm/m^2 EDV/bsa, MM Teich. 57 ml/m^2 EF, MM on 2D Teich. 66 % Ascending aorta Value E', lat rodger, TDI 10.6 cm/sec AAo AP diam, S 3.6 cm E/e', lat rodger, TDI 6 AAo AP diam/bsa, S 1.7 cm/m^2 E', med rodger, TDI 7.1 cm/sec Legend: (L) and (H) roberto carlos values outside specified reference range. [facility] are accredited with the [facility] Accreditation Commission - Echocardiography. Prepared and Electronically Authenticated Madhav Garcia MD Confirmed 02/27/2025 16:55 Procedure Note Madhav Garcia MD - 02/27/2025 [facility] [address] [place] [id number] Transthoracic Echocardiography Patient: Anant Rowland Study ID: ANGÉLICA Liang Gender: Guerda : 1965 Age: 59 Room: [facility] Study 02/27/2025 Outpatient Date: Status: Study 09:37:20 AM CSN #: [id number] Time: Ordering:Madhav Garcia MD Anesthesiology Crna: EZEKIEL Indications and History: Mixed hyperlipidemia [E78.2 (ICD-10-CM)]; Coronary artery disease involving ambler coronary artery of ambler heartwith angina pectoris [I25.119 (ICD-10-CM)]. Labs, prior tests, procedures, and surgery: Stress nuclear imaging (01/21/2025). EF was 68%. Summary and Conclusion: - Left ventricle: The cavity size is normal. Wall thickness is normal.Global systolic function is normal. For Epic reporting: the left ventricular ejection fraction is 55% by visual assessment. No diagnostic regionalwall motion abnormality identified. Left ventricular diastolic function parameters are normal for the patients age. - Right ventricle: The cavity size is normal. Systolic function is normal.The estimated peak pressure is 34mm Hg. - Left atrium: The atrium is upper normal to mildly dilated. - Mitral valve: There is mild regurgitation. - Tricuspid valve: There is mild regurgitation. Procedure information: No prior study is available for comparison.Study status: Routine. Procedure: A transthoracic echocardiogram wasperformed. Image quality was adequate. Scanning was performed from the parasternal, apical, subcostal, and suprasternal notch acoustic windows. There wereno complications. Study components: M-mode, 2D, complete spectral Doppler, and color Doppler. Height: 172.7cm. Height: 68in. Weight: 86.5kg. Weight: 190.6lb. BMI: 29kg/m^2. BSA: 2.06m^2. Bloodpressure: 126/62 Study date: 02/27/2025. Study time: 09:37 AM. Location:Echo laboratory. Cardiac Anatomy: LEFT VENTRICLE: The cavity size is normal. Wall thickness is normal.Global systolic function is normal. For Epic reporting: the left ventricularejection fraction is 55% by visual assessment. No diagnostic regional wall motion abnormality identified. The longitudinal strain is -21.9% (Normal range is-18 to -25). Left ventricular diastolic function parameters are normal forthe patients age. RIGHT VENTRICLE: The cavity size is normal. Systolic function is normal.The estimated peak pressure is 34mm Hg. LEFT ATRIUM: The atrium is upper normal to mildly dilated. RIGHT ATRIUM: The atrium is normal in size. ATRIAL SEPTUM: Not well visualized. AORTIC VALVE: The valve is trileaflet. Mobility is not restricted. Thereis no stenosis. There is no significant regurgitation. MITRAL VALVE: Mobility is not restricted. No evidence for prolapse.There is no evidence for stenosis. There is mild regurgitation. TRICUSPID VALVE: Mobility is unrestricted. There is no evidence for stenosis. There is mild regurgitation. PULMONIC VALVE: Not well visualized. There is no evidence forstenosis. There is trace regurgitation. PERICARDIUM: There is no pericardial effusion. AORTA: Aortic root: The root is not dilated. Measurements Left ventricle Value Left ventricle continued Value GLS, 2D -21.9 % E/e', med rodger, TDI 9 KATHI, LAX 5.0 cm E', avg, TDI 8.9cm/sec ESD, LAX 3.2 cm E/e', avg, TDI 8 KATHI/bsa, LAX 2.4 cm/m^2 ESD/bsa, LAX 1.5 cm/m^2 LVOT Value FS, LAX 36 % Peak antonella, S 77.42cm/sec FS, LAX chord 36 % Peak grad, S 2 mmHg ESD major ax, A4C 7.4 cm ESD/bsa major ax, A4C 3.6 cm/m^2 Right ventricle Value KATHI minor ax, A4C 7.4 cm KATHI, LAX 3.0cm KATHI/bsa minor ax, A4C 3.6 cm/m^2 TAPSE, MM 2.7cm KATHI major ax, A2C 8.4 cm S' lateral 14.3cm/sec ESD major ax, A2C 7.0 cm KATHI/bsa major ax, A2C 4.1 cm/m^2 Left atrium Value ESD/bsa major ax, A2C 3.4 cm/m^2 AP dim, ES 4.4cm IVS, ED 1.0 cm AP dim index, ES 2.1cm/m^2 ESD 3.2 cm SI dim, A4C 5.4cm ESD/bsa 1.5 cm/m^2 Area ES, A4C 19cm^2 FS 36 % Vol, S 59ml PW, ED 0.9 cm Vol/bsa, S 29ml/m^2 IVS/PW, ED 1.16 Vol, ES, 1-p A4C 53ml EDV 117 ml Vol/bsa, ES, 1-p A4C 26ml/m^2 ESV 40 ml Vol, ES, 1-p A2C 54ml EF 66 % Vol/bsa, ES, 1-p A2C 26ml/m^2 SV 40 ml Vol, ES, 2-p 54ml EDV/bsa 57 ml/m^2 Vol/bsa, ES, 2-p 26ml/m^2 ESV/bsa 20 ml/m^2 Vol, ES, A/L 60ml SV/bsa 20 ml/m^2 Vol/bsa, ES, A/L 29ml/m^2 EDV, 1-p A2C 72 ml ESV, 1-p A2C 46 ml Right atrium Value EF, 1-p A2C 64 % Area, ES, A4C 13cm^2 SV, 1-p A2C 77 ml EDV/bsa, 1-p A2C 35 ml/m^2 Aortic valve Value ESV/bsa, 1-p A2C 22 ml/m^2 Peak v, S 115.95cm/sec SV/bsa, 1-p A2C 37.3 ml/m^2 Peak grad, S 5 mmHg EDV, 1-p A4C 101 ml LVOT/AV, Vpeak ratio 0.67 ESV, 1-p A4C 32 ml EF, 1-p A4C 68 % Mitral valve Value SV, 1-p A4C 69 ml Peak E 66.76cm/sec EDV/bsa, 1-p A4C 49 ml/m^2 Peak A 62.5cm/sec ESV/bsa, 1-p A4C 16 ml/m^2 Decel slope 338.7cm/s^2 SV/bsa, 1-p A4C 33 ml/m^2 Decel time 197ms EDV, 2-p 86 ml Peak E/A ratio 1.07 ESV, 2-p 30 ml EF, 2-p 65 % Tricuspid valve Value SV, 2-p 26 ml TR peak v 278.48cm/sec EDV/bsa, 2-p 42 ml/m^2 Peak RV-RA grad, S 31 mmHg ESV/bsa, 2-p 14 ml/m^2 SV/bsa, 2-p 12.7 ml/m^2 Aortic root Value EDV, MM Teich. 117 ml Root diam 3.3cm EF, MM Teich. 66 % Root diam/bsa 1.6cm/m^2 EDV/bsa, MM Teich. 57 ml/m^2 EF, MM on 2D Teich. 66 % Ascending aorta Value E', lat rodger, TDI 10.6 cm/sec AAo AP diam, S 3.6cm E/e', lat rodger, TDI 6 AAo AP diam/bsa, S 1.7cm/m^2 E', med rodger, TDI 7.1 cm/sec Legend: (L) and (H) roberto carlos values outside specified reference range. [facility] are [facility] with [facility] - Echocardiography. Prepared and Electronically Authenticated Madhav Garcia MD Confirmed 02/27/2025 16:55 us Madhva Garcia MD ORDERABLES Final Result Performing Organization Address City/State/[facility] Co de Phone Number INTERFACE SYSTEM Refer to clinic/hospital department * PET HEART PERF R&S W CT MULTI (01/21/2025 1:26 PM CDT) 01/21/2025 1:27 PM CDT Addenda Addendum by Madhav Garcia MD on 01/22/2025 6:17 PM CDT REST-STRESS REGADENOSON RUBIDIUM-82 PET/CT MYOCARDIAL PERFUSION IMAGING Clinical Indication and History: This is a 59-year-old with chest pain, coronary artery disease. Procedure: A CT scan was required for attenuation correction of the rest images. This was followed by infusion of 29.7 mCi of rubidium Rb-82, after which rest images were acquired. Following rest imaging, a total of 0.4 mg was injected intravenously over 10 seconds followed by a 5 ml normal saline flush. At 1 minute, 29.8 mCi of rubidium Rb-82 was infused. Peak stress images acquired, starting 30 seconds after the beginning of the infusion of Rb-82. A CT scan was acquired for attention correction of the stress images. A coronary calcium score (performed if no prior CAD or calcium score) is acquired with 3 mm thick slices using a 3 mm slice of slice step. Calcium score protocol: high resolution, ECG synchronized completed tomography of the heart and coronary arteries was performed using a multi detector computer tomography MDCT scanner. Clinical response: The heart rate at rest was 65 beats per minute. After the regadenoson injection, the heart rate was 109 beats per minute. The blood pressure at baseline was 151/97 mm Hg. At the end of regadenoson injection, it was 128/77 mm Hg. The patient experienced the following symptoms during the test: shortness of breath. Electrocardiograph findings: The resting 12-lead electrocardiogram showed normal sinus rhythm, without ST-segment changes . Following regadenoson stress, no significant ST-T changes were noted. There was evidence of no significant new arrhythmias. Scintigraphic findings: The tomographic images show normal myocardial perfusion at rest and stress without evidence of fixed or reversible defects. The left ventricle does not dilate with stress. The gated tomograms show normal wall motion and thickening in all areas. The LVEF at rest is 68%, rising to 73% at peak stress. Myocardial blood flow reserve: Stress flow Rest flow MBFR LAD 2.17 0.71 3.04 LCX 2.10 0.75 0.80 RCA 2.70 0.62 4.36 Global 2.27 0.69 3.30 Clinical response: Non-diagnostic (regadenoson). Electrocardiographic response: Non-ischemic Scintigraphic response: Non-ischemic Impression: 1. Normal myocardial perfusion at rest and stress, without evidence of ischemia or injury. 2. Normal global myocardial blood flow reserve (MBFR) at 3.3. 3. Normal left ventricular systolic function, LVEF at rest is 68%, rising to 73% at peak stress. 4. TID ratio is 1.02. This is normal. 5. Coronary artery calcification noted. 6. No prior study available for direct comparison. Impressions INTERFACE SYSTEM - 01/22/2025 8:49 AM CDT Impression: 1. Normal myocardial perfusion at rest and stress, without evidence of ischemia or injury. 2. Normal global myocardial blood flow reserve (MBFR) at 3.3. 3. Normal left ventricular systolic function, LVEF at rest is 68%, rising to 73% at peak stress. 4. TID ratio is 1.02. This is normal. 5. Coronary artery calcium scan shows a score of 0. 6. No prior study available for direct comparison. Madhav Garcia MD Narrative INTERFACE SYSTEM - 01/22/2025 8:49 AM CDT REST-STRESS REGADENOSON RUBIDIUM-82 PET/CT MYOCARDIAL PERFUSION IMAGING Clinical Indication and History: This is a 59-year-old with chest pain, coronary artery disease. Procedure: A CT scan was required for attenuation correction of the rest images. This was followed by infusion of 29.7 mCi of rubidium Rb-82, after which rest images were acquired. Following rest imaging, a total of 0.4 mg was injected intravenously over 10 seconds followed by a 5 ml normal saline flush. At 1 minute, 29.8 mCi of rubidium Rb-82 was infused. Peak stress images acquired, starting 30 seconds after the beginning of the infusion of Rb-82. A CT scan was acquired for attention correction of the stress images. A coronary calcium score (performed if no prior CAD or calcium score) is acquired with 3 mm thick slices using a 3 mm slice of slice step. Calcium score protocol: high resolution, ECG synchronized completed tomography of the heart and coronary arteries was performed using a multi detector computer tomography MDCT scanner. Clinical response: The heart rate at rest was 65 beats per minute. After the regadenoson injection, the heart rate was 109 beats per minute. The blood pressure at baseline was 151/97 mm Hg. At the end of regadenoson injection, it was 128/77 mm Hg. The patient experienced the following symptoms during the test: shortness of breath. Electrocardiograph findings: The resting 12-lead electrocardiogram showed normal sinus rhythm, without ST-segment changes . Following regadenoson stress, no significant ST-T changes were noted. There was evidence of no significant new arrhythmias. Scintigraphic findings: The tomographic images show normal myocardial perfusion at rest and stress without evidence of fixed or reversible defects. The left ventricle does not dilate with stress. The gated tomograms show normal wall motion and thickening in all areas. The LVEF at rest is 68%, rising to 73% at peak stress. Myocardial blood flow reserve: Stress flow Rest flow MBFR LAD 2.17 0.71 3.04 LCX 2.10 0.75 0.80 RCA 2.70 0.62 4.36 Global 2.27 0.69 3.30 Clinical response: Non-diagnostic (regadenoson). Electrocardiographic response: Non-ischemic Scintigraphic response: Non-ischemic Procedure Note Madhav Garcia MD - 01/22/2025 REST-STRESS REGADENOSON RUBIDIUM-82 PET/CT MYOCARDIAL PERFUSION IMAGING Clinical Indication and History: This is a 59-year-old with chest pain, coronary artery disease. Procedure: A CT scan was required for attenuation correction of the rest images. This was followed by infusion of 29.7 mCi of rubidium Rb-82, after which rest images were acquired. Following rest imaging, a total of 0.4 mg was injected intravenously over 10 seconds followed by a 5 ml normal saline flush. At 1 minute, 29.8 mCi of rubidium Rb-82 was infused. Peak stress images acquired, starting 30 seconds after the beginning of the infusion of Rb-82. A CT scan was acquired for attention correction of the stress images. A coronary calcium score (performed if no prior CAD or calcium score) is acquired with 3 mm thick slices using a 3 mm slice of slice step. Calcium score protocol: high resolution, ECG synchronized completed tomography of the heart and coronary arteries was performed using a multi detector computer tomography MDCT scanner. Clinical response: The heart rate at rest was 65 beats per minute. After the regadenoson injection, the heart rate was 109 beats per minute. The blood pressure at baseline was 151/97 mm Hg. At the end of regadenoson injection, it was 128/77 mm Hg. The patient experienced the following symptoms during the test: shortness of breath. Electrocardiograph findings: The resting 12-lead electrocardiogram showed normal sinus rhythm, without ST-segment changes . Following regadenoson stress, no significant ST-T changes were noted. There was evidence of no significant new arrhythmias. Scintigraphic findings: The tomographic images show normal myocardial perfusion at rest and stress without evidence of fixed or reversible defects. The left ventricle does not dilate with stress. The gated tomograms show normal wall motion and thickening in all areas. The LVEF at rest is 68%, rising to 73% at peak stress. Myocardial blood flow reserve: Stress flow Rest flow MBFR LAD 2.17 0.71 3.04 LCX 2.10 0.75 0.80 RCA 2.70 0.62 4.36 Global 2.27 0.69 3.30 Clinical response: Non-diagnostic (regadenoson). Electrocardiographic response: Non-ischemic Scintigraphic response: Non-ischemic Impression: 1. Normal myocardial perfusion at rest and stress, without evidence of ischemia or injury. 2. Normal global myocardial blood flow reserve (MBFR) at 3.3. 3. Normal left ventricular systolic function, LVEF at rest is 68%, rising to 73% at peak stress. 4. TID ratio is 1.02. This is normal. 5. Coronary artery calcium scan shows a score of 0. 6. No prior study available for direct comparison. Madhav Garcia MD us Madhav Garcia MD PE ORDERABLES Edited Result - Final INTERFACE SYSTEM Refer to clinic/hospital department * NM PHARMACOLOGICAL STRESS TEST (01/21/2025 12:51 PM CDT) 01/21/2025 1:04 PM CDT Addenda Addendum by Madhav Garcia MD on 01/22/2025 6:17 PM CDT REST-STRESS REGADENOSON RUBIDIUM-82 PET/CT MYOCARDIAL PERFUSION IMAGING Clinical Indication and History: This is a 59-year-old with chest pain, coronary artery disease. Procedure: A CT scan was required for attenuation correction of the rest images. This was followed by infusion of 29.7 mCi of rubidium Rb-82, after which rest images were acquired. Following rest imaging, a total of 0.4 mg was injected intravenously over 10 seconds followed by a 5 ml normal saline flush. At 1 minute, 29.8 mCi of rubidium Rb-82 was infused. Peak stress images acquired, starting 30 seconds after the beginning of the infusion of Rb-82. A CT scan was acquired for attention correction of the stress images. A coronary calcium score (performed if no prior CAD or calcium score) is acquired with 3 mm thick slices using a 3 mm slice of slice step. Calcium score protocol: high resolution, ECG synchronized completed tomography of the heart and coronary arteries was performed using a multi detector computer tomography MDCT scanner. Clinical response: The heart rate at rest was 65 beats per minute. After the regadenoson injection, the heart rate was 109 beats per minute. The blood pressure at baseline was 151/97 mm Hg. At the end of regadenoson injection, it was 128/77 mm Hg. The patient experienced the following symptoms during the test: shortness of breath. Electrocardiograph findings: The resting 12-lead electrocardiogram showed normal sinus rhythm, without ST-segment changes . Following regadenoson stress, no significant ST-T changes were noted. There was evidence of no significant new arrhythmias. Scintigraphic findings: The tomographic images show normal myocardial perfusion at rest and stress without evidence of fixed or reversible defects. The left ventricle does not dilate with stress. The gated tomograms show normal wall motion and thickening in all areas. The LVEF at rest is 68%, rising to 73% at peak stress. Myocardial blood flow reserve: Stress flow Rest flow MBFR LAD 2.17 0.71 3.04 LCX 2.10 0.75 0.80 RCA 2.70 0.62 4.36 Global 2.27 0.69 3.30 Clinical response: Non-diagnostic (regadenoson). Electrocardiographic response: Non-ischemic Scintigraphic response: Non-ischemic Impression: 1. Normal myocardial perfusion at rest and stress, without evidence of ischemia or injury. 2. Normal global myocardial blood flow reserve (MBFR) at 3.3. 3. Normal left ventricular systolic function, LVEF at rest is 68%, rising to 73% at peak stress. 4. TID ratio is 1.02. This is normal. 5. Coronary artery calcification noted. 6. No prior study available for direct comparison. Impressions INTERFACE SYSTEM - 01/22/2025 8:49 AM CDT Impression: 1. Normal myocardial perfusion at rest and stress, without evidence of ischemia or injury. 2. Normal global myocardial blood flow reserve (MBFR) at 3.3. 3. Normal left ventricular systolic function, LVEF at rest is 68%, rising to 73% at peak stress. 4. TID ratio is 1.02. This is normal. 5. Coronary artery calcium scan shows a score of 0. 6. No prior study available for direct comparison. Madhav Garcia MD Narrative INTERFACE SYSTEM - 01/22/2025 8:49 AM CDT REST-STRESS REGADENOSON RUBIDIUM-82 PET/CT MYOCARDIAL PERFUSION IMAGING Clinical Indication and History: This is a 59-year-old with chest pain, coronary artery disease. Procedure: A CT scan was required for attenuation correction of the rest images. This was followed by infusion of 29.7 mCi of rubidium Rb-82, after which rest images were acquired. Following rest imaging, a total of 0.4 mg was injected intravenously over 10 seconds followed by a 5 ml normal saline flush. At 1 minute, 29.8 mCi of rubidium Rb-82 was infused. Peak stress images acquired, starting 30 seconds after the beginning of the infusion of Rb-82. A CT scan was acquired for attention correction of the stress images. A coronary calcium score (performed if no prior CAD or calcium score) is acquired with 3 mm thick slices using a 3 mm slice of slice step. Calcium score protocol: high resolution, ECG synchronized completed tomography of the heart and coronary arteries was performed using a multi detector computer tomography MDCT scanner. Clinical response: The heart rate at rest was 65 beats per minute. After the regadenoson injection, the heart rate was 109 beats per minute. The blood pressure at baseline was 151/97 mm Hg. At the end of regadenoson injection, it was 128/77 mm Hg. The patient experienced the following symptoms during the test: shortness of breath. Electrocardiograph findings: The resting 12-lead electrocardiogram showed normal sinus rhythm, without ST-segment changes . Following regadenoson stress, no significant ST-T changes were noted. There was evidence of no significant new arrhythmias. Scintigraphic findings: The tomographic images show normal myocardial perfusion at rest and stress without evidence of fixed or reversible defects. The left ventricle does not dilate with stress. The gated tomograms show normal wall motion and thickening in all areas. The LVEF at rest is 68%, rising to 73% at peak stress. Myocardial blood flow reserve: Stress flow Rest flow MBFR LAD 2.17 0.71 3.04 LCX 2.10 0.75 0.80 RCA 2.70 0.62 4.36 Global 2.27 0.69 3.30 Clinical response: Non-diagnostic (regadenoson). Electrocardiographic response: Non-ischemic Scintigraphic response: Non-ischemic Procedure Note Madhav Garcia MD - 01/22/2025 REST-STRESS REGADENOSON RUBIDIUM-82 PET/CT MYOCARDIAL PERFUSION IMAGING Clinical Indication and History: This is a 59-year-old with chest pain, coronary artery disease. Procedure: A CT scan was required for attenuation correction of the rest images. This was followed by infusion of 29.7 mCi of rubidium Rb-82, after which rest images were acquired. Following rest imaging, a total of 0.4 mg was injected intravenously over 10 seconds followed by a 5 ml normal saline flush. At 1 minute, 29.8 mCi of rubidium Rb-82 was infused. Peak stress images acquired, starting 30 seconds after the beginning of the infusion of Rb-82. A CT scan was acquired for attention correction of the stress images. A coronary calcium score (performed if no prior CAD or calcium score) is acquired with 3 mm thick slices using a 3 mm slice of slice step. Calcium score protocol: high resolution, ECG synchronized completed tomography of the heart and coronary arteries was performed using a multi detector computer tomography MDCT scanner. Clinical response: The heart rate at rest was 65 beats per minute. After the regadenoson injection, the heart rate was 109 beats per minute. The blood pressure at baseline was 151/97 mm Hg. At the end of regadenoson injection, it was 128/77 mm Hg. The patient experienced the following symptoms during the test: shortness of breath. Electrocardiograph findings: The resting 12-lead electrocardiogram showed normal sinus rhythm, without ST-segment changes . Following regadenoson stress, no significant ST-T changes were noted. There was evidence of no significant new arrhythmias. Scintigraphic findings: The tomographic images show normal myocardial perfusion at rest and stress without evidence of fixed or reversible defects. The left ventricle does not dilate with stress. The gated tomograms show normal wall motion and thickening in all areas. The LVEF at rest is 68%, rising to 73% at peak stress. Myocardial blood flow reserve: Stress flow Rest flow MBFR LAD 2.17 0.71 3.04 LCX 2.10 0.75 0.80 RCA 2.70 0.62 4.36 Global 2.27 0.69 3.30 Clinical response: Non-diagnostic (regadenoson). Electrocardiographic response: Non-ischemic Scintigraphic response: Non-ischemic Impression: 1. Normal myocardial perfusion at rest and stress, without evidence of ischemia or injury. 2. Normal global myocardial blood flow reserve (MBFR) at 3.3. 3. Normal left ventricular systolic function, LVEF at rest is 68%, rising to 73% at peak stress. 4. TID ratio is 1.02. This is normal. 5. Coronary artery calcium scan shows a score of 0. 6. No prior study available for direct comparison. Madhav Garcia MD us Madhav Garcia MD NM ORDERABLES Edited Result - Final INTERFACE SYSTEM Refer to clinic/hospital department * (ABNORMAL) CBC WITH DIFFERENTIAL (01/03/2025 2:15 PM CDT) Only the most recent of2 resultswithin the time period is included. WBC 8.3 3.8 - 10.8 Thousand/u L [facility] RBC 4.30 4.20 - 5.80 Million/uL [facility] HEMOGLOBIN 12.7(L) 13.2 - 17.1 g/dL [facility] HEMATOCRIT 40.3 38.5 - 50.0 % [facility] MCV 93.7 80.0 - 100.0 fL [facility] MCH 29.5 27.0 - 33.0 pg [facility] MCHC 31.5(L) 32.0 - 36.0 g/dL [facility] Comment: For adults, a slight decrease in the calculated MCHC value (in the range of 30 to 32 g/dL) is most likely not clinically significant; however, it should be interpreted with caution in correlation with other red cell parameters and the patient's clinical condition. RDW 13.5 11.0 - 15.0 % [facility] PLATELETS 354 140 - 400 Thousand/u L [facility] MPV 9.2 7.5 - 12.5 fL [facility] NEUTROPHIL ABSOLUTE 4,897 1,500 - 7,800 cells/uL [facility] LYMPHOCYTE ABSOLUTE 2,424 850 - 3,900 cells/uL [facility] MONOCYTE ABSOLUTE 722 200 - 950 cells/uL [facility] EOSINOPHIL ABSOLUTE 208 15 - 500 cells/uL [facility] BASOPHILS ABSOLUTE 50 0 - 200 cells/uL [facility] NEUTROPHIL 59 % [facility] LYMPHOCYTES 29.2 % [facility] MONOCYTE 8.7 % [facility] EOSINOPHILS 2.5 % [facility] BASOPHILS 0.6 % [facility] COMMENT HEMATOLOGY [facility] Comment: Few Reactive Lymphocytes Noted (<10 per 100 WBC) Review of peripheral smear confirms automated results. Test Performed at: [facility] [address] [place] [address] CelesteFarrah Del Castillo MD Blood 01/03/2025 2:15 PM CDT 01/03/2025 2:16 PM CDT Armando Bolanos MD HEMATOLOGY ORDERABLES Final Result Performing Organization Address [facility]/ZIP Co de Phone Number [facility] [phone] [facility] [address] * (ABNORMAL) BRAIN NATRIURETIC PEPTIDE, BNP OR PROBNP (01/03/2025 2:12 PM CDT) PROBNP, N TERMINAL 263(H) <125 pg/mL [facility] Comment: Test Performed at: [facility] [address] [place] [address] Mauro Del Castillo MD Blood 01/03/2025 2:12 PM CDT 01/03/2025 2:12 PM CDT us Madhav Garcia MD CHEMISTRY ORDERA BLES Final Result Performing Organization Address [facility] Co de Phone Number [facility] [phone] [facility] [address] [place] [address] * (ABNORMAL) LIPID PANEL (01/03/2025 2:12 PM CDT) CHOLESTEROL 86 <200 mg/dL [facility] HDL 34(L) > OR = 40 mg/dL [facility] TRIGLYCERIDE 72 <150 mg/dL [facility] LDL CALCULATED 37 mg/dL (calc) [facility] Comment: Reference range: <100 Desirable range <100 mg/dL for primary prevention; <70 mg/dL for patients with CHD or diabetic patients with > or = 2 CHD risk factors. LDL-C is now calculated using the Beth calculation, which is a validated novel method providing better accuracy than the Friedewald equation in the estimation of LDL-C. Rishi BLUNT et al. DANIEL. 2013;310(19): 5707-3957 (http://education.[employer]/faq/VSN309) CHOL/HDL RATIO 2.5 <5.0 (calc) [facility] NON-HDL CHOLESTEROL 52 <130 mg/dL (calc) [facility] Comment: For patients with diabetes plus 1 major ASCVD risk factor, treating to a non-HDL-C goal of <100 mg/dL (LDL-C of <70 mg/dL) is considered a therapeutic option. Test Performed at: [facility] [address] [place] [address] Mauro Del Castillo MD Blood 01/03/2025 2:12 PM CDT 01/03/2025 2:12 PM CDT us Madhav Jody Garcia MD CHEMISTRY ORDERA BLE Final Result [facility] [phone] [facility] [address] [place] [address] * COMPREHENSIVE METABOLIC PANEL (01/03/2025 2:12 PM CDT) Only the most recent of2 resultswithin the time period is included. GLUCOSE 87 65 - 99 mg/dL [facility] Comment: Fasting reference interval BUN 14 7 - 25 mg/dL [facility] CREATININE 1.24 0.70 - 1.30 mg/dL [facility] GFR 68 > OR = 60 mL/min/1. 73m2 [facility] BUN/CREAT RATIO SEE NOTE: 6 - 22 (calc) [facility] Comment: Not Reported: BUN and Creatinine are within reference range. SODIUM 140 135 - 146 mmol/L [facility] POTASSIUM 3.8 3.5 - 5.3 mmol/L [facility] CHLORIDE 103 98 - 110 mmol/L [facility] CO2 26 20 - 32 mmol/L [facility] CALCIUM 9.4 8.6 - 10.3 mg/dL [facility] TOTAL PROTEIN 6.8 6.1 - 8.1 g/dL [facility] ALBUMIN 4.2 3.6 - 5.1 g/dL [facility] GLOBULIN 2.6 1.9 - 3.7 g/dL (calc) [facility] ALBUMIN/GLOBULIN RATIO 1.6 1.0 - 2.5 (calc) [facility] BILIRUBIN TOTAL 0.7 0.2 - 1.2 mg/dL [facility] ALKALINE PHOSPHATASE 106 35 - 144 U/L [facility] AST 18 10 - 35 U/L [facility] ALT 20 9 - 46 U/L [facility] Comment: Test Performed at: [facility] [address] [place] [address] Mauro Del Castillo MD Blood 01/03/2025 2:12 PM CDT 01/03/2025 2:12 PM CDT us Madhav Jody Garcia MD CHEMISTRY ORDERA BLES Final Result [facility] [phone] [facility] [address] * (ABNORMAL) GI PATHOGEN PCR PANEL (01/01/2025 12:17 AM CDT) Campylobacter by PCR DETECTED (A) Not Detected 01/01/2025 3:01 AM T [facility] Comment: Campylobacter enterocolitis is a self-limiting infection in otherwise healthy children and adults. In cases with high fever, bloody stools, and symptoms lasting greater than one week, antimicrobial treatment may be indicated and can reduce the symptoms and severity as well as reduce the likelihood of serious complications, such as Guillain-[place] syndrome. Enteropathogenic E. coli (EPEC) by PCR DETECTED (A) Not Detected 01/01/2025 3:01 AM [facility] Comment: Bacterial enterocolitis is a self-limiting infection in otherwise healthy children and adults and these patients should not be treated with antibiotics. Susceptibility testing is not available. Stool STOOL SPECIMEN / Unknown Collection / Unknown 01/01/2025 12:17 AM CDT 01/01/2025 1:12 AM CDT Narrative [facility] - 01/01/2025 3:01 AM CDT Positive GI pathogen panel called to Mae VACA RN by Lainey Larkin on 01/01/2025 at 2:58 AM with verbal readback. The Film Array GI Panel is a multiplexed nucleic acid detection test for 22 targets of bacteria, viruses, and parasites in stool that cause infectious diarrhea. Bacteria: Campylobacter C. difficile Plesiomonas shigelloides Salmonella Vibrio Vibrio cholerae Yersinia enterocolitica Enteroaggregative E. Coli (EAEC) Enteropathogenic E. Coli (EPEC) Enterotoxigenic E. Coli (ETEC) Shiga-like toxin-producing E. Coli (STEC) E. Coli O157 Shigella/Enteroinvasive E. Coli (EIEC) Viruses: Adenovirus F 40/41 Astrovirus Norovirus GI/GII Rotavirus A Sapovirus Parasites: Cryptosporidium Cyclospora cayetanensis Entamoeba histolytica Giardia duodenalis Felisha Stewart MD MICROBIOLOGY - GENERAL ORDERABLE S Final Result [facility] [id number] [address] [place] [id number] * TYPE AND SCREEN (12/31/2024 12:44 PM CDT) ABO GROUP O 12/31/2024 1:49 PM CDT [facility] RH (D) TYPE Positive 12/31/2024 1:49 PM CDT [facility] ANTIBODY SCREEN Negative 12/31/2024 1:49 PM CDT [facility] Blood Venipuncture / Unknown 12/31/2024 12:44 PM CDT 12/31/2024 12:56 PM CDT Asa Troyjovan Wyatt [employer] BLOOD BANK ORDERABLES Edited Result - Final [facility] MIGUELIA#[id number] [address] [place] [address], [place] [phone] from Last 3 Months Insurance [facility] PLAN [facility] [place] [id number] Advance Directives For more information, please contact: [phone] * Full Code (Latest Code Status on File) Date Activated Date Inactivated Comments 12/13/2024 9:52 PM 12/17/2024 4:54 PM
--- OUTSIDE RECORDS SUMMARY | 2025-03-25 07:14 | XMS_ITS | Encounter Summary ---
Author Organization [facility] Address [address] [place] [address] Care Team Providers Care [facility] Strip Gauger Name Role Phone Unavailable Primary Care Provider Unavailabl e Encounter Details Date Type Department Care Team (Latest Contact Info) Description 04/05/2006 Outpatient Historical [facility] [address] [phone] Festus Beltre MD [address] [place] [phone] Other Symptoms Involving Digestive System (Primary Dx) Social History Tobacco Use Types Packs/Day Years Used Date Smoking Tobacco: Never Assessed Sex and Gender Information Value Date Recorded Sex Assigned at Not on file Legal Sex Male 5:53 AM [employer] Gender Identity Not on file Sexual Orientation Not on file documented as of this encounter Plan of Treatment Not on file documented as of this encounter Visit Diagnoses Diagnosis Other symptoms involving digestive system(787.99)- Primary Other symptoms involving digestive system documented in this encounter
--- NOTE | 2025-03-25 07:21 | W.ED.ABDPA2 ---
HPI - Abdominal Pain General: Chief Complaint: Abdominal Pain Stated Complaint: Abd Pain Time Seen by Provider: 03/25/25 07:09 History of Present Illness: 59-year-old male presents emergency room complaining of abdominal pain in the overnight. Patient refers most of his pain in the epigastric area. He tried some Gas-X with no relief. 3 months ago patient was hospitalized at [facility] for bleeding ulcer he did receive transfusions at the time. Patient denies using alcohol. He has not any hematemesis or coffee-ground emesis no hematochezia or melena. No fever sweats chills no previous abdominal surgeries. After his previous hospitalization 3 months ago he was started on Protonix. He continued taking until about approximately a week ago he had run out did not get a refill. Associated Symptoms: Reports nausea; Denies chills, dysuria and fever(s) Related Data Home Medications ?Medication ?Instructions ?Recorded ?Confirmed tamsulosin 0.4 mg capsule 0.4 mg PO DAILY 01/26/23 03/25/25 amoxicillin 875 mg tablet 875 mg PO BID 03/25/25 03/25/25 metoprolol succinate 25 mg See Rx Instructions .Route .COMPLEX 03/25/25 03/25/25 tablet,extended release 24 hr pantoprazole 40 mg tablet,delayed 40 mg PO BID 03/25/25 03/25/25 release Previous Rx's ?Medication ?Instructions ?Recorded albuterol sulfate 90 mcg/actuation 2 puff inhalation Q6H PRN 04/07/23 aerosol inhaler shortness of breath or wheezing #8.5 grams budesonide-formoterol HFA 80 2 puff inhalation BID #10.2 grams 04/07/23 mcg-4.5 mcg/actuation aerosol inhaler (Symbicort) nitroglycerin 0.4 mg sublingual 0.4 mg sublingual Q5M PRN Chest 06/11/23 tablet Pain #25 tabs atorvastatin 40 mg tablet 40 mg PO BEDTIME #90 tabs 07/09/24 lisinopril 10 mg tablet 10 mg PO DAILY #90 tabs 09/07/24 clopidogrel 75 mg tablet 75 mg PO DAILY #90 tabs 10/08/24 amlodipine 10 mg tablet 10 mg PO DAILY #90 tabs 10/26/24 Allergies Allergy/AdvReac Type Severity Reaction Status Date / Time pantoprazole AdvReac Intermediate Unknown Unverified 03/25/25 12:04 Review of Systems Const: Denies: fever(s) or chills Card: Denies: chest pain Resp: Denies: dyspnea GI: Reports: abdominal pain and nausea : Denies: dysuria, urinary frequency or urinary urgency Musc: Denies: neck pain or back pain Skin/Breast: Denies: rash PFSH ED PFSH: Medical History Recurrent chest pain Cholelithiasis PUD (peptic ulcer disease) Eosinophilic asthma Coronary artery disease Elevated troponin Chest pain Hypertension Non-ST elevation PR (NSTEMI) Hypertensive emergency Social History Smoking and tobacco/nicotine status: never used tobacco/nicotine Alcohol intake: never Substance/Drug Use: never Physical Exam Const: GENERAL APPEARANCE: cooperative ORIENTATION/CONSCIOUSNESS: Yes awake, Yes oriented to person, Yes oriented to place and Yes oriented to time HENMT: COMMON NORMALS: normocephalic, atraumatic and hearing grossly normal bilaterally HEAD & SCALP: normocephalic and atraumatic Resp: COMMON NORMALS: normal respiratory effort, No retractions, No use of accessory muscles and clear to auscultation bilaterally AUSCULTATION: clear to auscultation bilaterally Cardio: COMMON NORMALS: regular rate, regular rhythm and No murmurs present (Cardio) RATE: regular rate RHYTHM: regular rhythm GI: COMMON NORMALS: No hepatosplenomegaly present AUSCULTATION: Yes normoactive bowel sounds PALPATION: Yes Tenderness to palpation present (GI) Details: RUQ, No Guarding due to palpation present (GI) and Yes No hepatosplenomegaly present Extremity: COMMON NORMALS: normal to inspection, capillary refill normal, no clubbing, cyanosis or edema, no calf tenderness and no pedal edema Neuro: SENSORIUM/ORIENTATION: Yes oriented to person, Yes oriented to place and Yes oriented to time Skin: COMMON NORMALS: no rashes or lesions noted GENERAL SKIN EXAM: no rashes or lesions noted Course Vital Signs: Vital signs: Vital Signs Temperature 97.9 F 03/25/25 12:45 Pulse Rate 87 03/25/25 12:45 Respiratory Rate 17 03/25/25 12:45 Blood Pressure 151/94 09/22/25 12:45 Pulse Oximetry 95 03/25/25 12:45 Oxygen Delivery Me thod Room Air 03/25/25 12:45 MDM - Abdominal Pain Medical Decision Making Patient has cholelithiasis white count is slightly elevated. Patient continues to have acute right upper quadrant abdominal pain. Repeat exam moderately positive Brito sign. Patient started on Zosyn discussed with hospitalist will admit consult surgery. Dr. Martínez will see the patient. Patient did have a questionably positive Lexiscan sestamibi stress test but was thought to be artifact has been treated medically to this point. Reviewed this with Dr. Li. Medical Records I reviewed the patient's medical records. Lab Data I reviewed the patient's lab results. 03/25/25 07:27 03/25/25 07:27 Labs/Radiology: Radiology Impressions Abdomen/Pelvis CT 03/25/25 07:54 IMPRESSION: 1. No mass, lymphadenopathy or acute process in the abdomen or pelvis. 2. Hydropic gallbladder with numerous prominent stones in the neck of the gallbladder. The appearance is unchanged. No sign of acute cholecystitis. 3. Multiple small bilateral renal cysts. Colonic diverticulosis. Other minor findings as above. Gallbladder Ultrasound 03/25/25 09:07 IMPRESSION: 1. Normally distended gallbladder with stones in the gallbladder neck. These stones may be entrapped at the gallbladder neck. No hydrops at this time and no intrahepatic duct dilatation. These stones in the gallbladder neck are very closely associated with the cystic duct. Consider surgical evaluation for cholecystectomy. 2. No intrahepatic duct dilatation. Chest X-Ray 03/25/25 12:00 IMPRESSION: 1. Prominent cardiac silhouette probably due to limited inspiration and AP portable technique. No acute process is suspected. Laboratory Results WBC 16.74 10^3/uL (3.29-11.43) H 03/25/25 07:27 RBC 6.68 10^6/uL (3.85-5.65) H 03/25/25 07:27 Hgb 17.60 g/dL (11.27-16.99) H 03/25/25 07:27 Hct 53.8 % (37-53) H 03/25/25 07:27 MCV 80.5 fl (82-101) L 03/25/25 07:27 MCH 26.3 pg (27-33) L 03/25/25 07: MCHC 32.7 g/dL (30-55) 03/25/25 07: RDW 13.0 % (12.1-15.1) 03/25/25 07: Plt Count 366 10^3/cmm (157-399) 03/25/25 07: MPV 9.4 fL (7.4-10.4) 03/25/25 07: Neut % (Auto) 84.3 % 03/25/25 07: Lymph % (Auto) 11.2 % 03/25/25 07: Kend[place] % (Auto) 3.5 % 03/25/25 07: Eos % (Auto) 0.4 % 03/25/25 07: Baso % (Auto) 0.2 % 03/25/25 07: Neut # (Auto) 14.13 10^3/uL (1.8-7.7) H 03/25/25 07: Lymph # (Auto) 1.9 10^3/uL (0.8-4.8) 03/25/25 07: Kendall # (Auto) 0.6 10^3/uL (0.2-0.9) 03/25/25 07: Eos # (Auto) 0.1 10^3/uL (0.0-0.8) 03/25/25 07: Baso # (Auto) 0.0 10^3/uL (0.0-0.1) 03/25/25 07: Nucleated RBC % (auto) 0 % 03/25/25 07: Nucleated RBCs # 0.0 /100WBC 03/25/25 07:27 Sodium 138 mmol/L (136-145) 03/25/25 07:27 Potassium 4.0 mmol/L (3.5-5.1) 03/25/25 07: Chloride 100 mmol/L (98-107) 03/25/25 07: Carbon Dioxide 23 mmol/L (22-29) 03/25/25 07:27 Anion Gap 19.0 (5-19) 03/25/25 07:27 BUN 12 mg/dL (6-20) 03/25/25 07: Creatinine 1.0 mg/dL (0.7-1.2) 03/25/25 07:27 GFR Calculation 77.0 mL/min (90-130) L 03/25/25 07:27 Glucose 119 mg/dL (65-115) H 03/25/25 07:27 Calculated Osmolality 287 mOsm/kg (285-295) 03/25/25 07:27 Calcium 10.1 mg/dL (8.5-10.5) 03/25/25 07:27 Total Bilirubin 0.5 mg/dL (0.15-1.2) 03/25/25 07:27 AST 26 U/L (0-40) 03/25/25 07:27 ALT 35 U/L (0-41) 03/25/25 07:27 Alkaline Phosphatase 166 U/L (40-130) H 03/25/25 07:27 Total Protein 8.9 g/dL (6.6-8.7) H 03/25/25 07:27 Albumin 5.0 g/dL (3.5-5.2) 03/25/25 07:27 Globulin 3.9 g/dL (1.3-4.6) 03/25/25 07:27 Lipase 25 U/L (13-60) 03/25/25 07:27 Urine Color Yellow (Yellow) 03/25/25 08:09 Urine Appearance Clear (CLEAR) 03/25/25 08:09 Urine pH 7.0 (5-7) 03/25/25 08:09 Ur Specific [place] 1.016 (1.005-1.030) 03/25/25 08:09 Urine Protein Trace (Negative) A 03/25/25 08:09 Urine Glucose (UA) Negative (Normal) 03/25/25 08:09 Urine Ketones Negative (Negative) 03/25/25 08:09 Urine Blood Non-haemolysed trace (Negative) 03/25/25 08:09 Urine Nitrate Negative (Negative) 03/25/25 08:09 Urine Bilirubin Negative (Negative) 03/25/25 08:09 Urine Urobilinogen 1.0 mg/dL (Negative) 03/25/25 08:09 Ur Leukocyte Esterase Negative (Negative) 03/25/25 08:09 Urine RBC 3-5 /hpf (0-2) 03/25/25 08:09 Urine WBC 0-5 /hpf (0-5) 03/25/25 08:09 Ur Squamous Epith Cells 0-5 /hpf (0-5) 03/25/25 08:09 Amorphous Sediment Not Reportable 03/25/25 08:09 Urine Bacteria None seen /hpf (NONE) 03/25/25 08:09 Hyaline Casts 0.40 /lpf 03/25/25 08:09 All radiology interpretation(s) finalized by discharge EKG Data EKG 1: Interpretation: EKG 03/25/2025 11:18 AM sinus rhythm rate of 72 WI interval 160 QTc [address] changes noted. Compared with EKG 11/05/2024, T wave inversion in lead III was present on previous EKG as well no acute change Discharge Plan Discharge Patient Disposition: Admitted As Inpatient Admit Provider: Blane Cleveland Clinical Impression: Abdominal pain, Cholelithiasis, PUD (peptic ulcer disease), Obstructive lung disease Condition: Stable Coding Level of Care Code ED Magneto Specialist for Chg Jack
[2025-03-25] MEDS: ondansetron 2 mg/ML SDV 2 mL 4 MG IVP ×2 (07:30→10:12)
[2025-03-25] MEDS: pantoprazole 40 mg SDV 80 MG IVP (07:33)
[2025-03-25] MEDS: lidocaine 2% viscous 15 ML, aluminum-mag hydrox-simethicon 30 ML, sucralfate oral liq 1 GM PO (07:34)
[2025-03-25 07:39] LABS: Hematocrit 53.8 % (37-53); Hemoglobin 17.60 g/dL (11.27-16.99); Mean Corpuscular HGB Conc 32.7 g/dL (30-55); Mean Corpuscular Hemoglobin 26.3 pg (27-33); Mean Corpuscular Volume 80.5 fl (82-101); Nucleated Red Blood Cells % 0 %; Platelet Count 366 10^3/cmm (157-399); Red Blood Count 6.68 10^6/uL (3.85-5.65); White Blood Count 16.74 10^3/uL (3.29-11.43)
[2025-03-25 07:53] LABS: Alanine Aminotransferase 35 U/L (0-41); Albumin Level 5.0 g/dL (3.5-5.2); Alkaline Phosphatase 166 U/L (40-130); Anion Gap 19.0 (5-19); Aspartate Amino Transferase 26 U/L (0-40); Blood Urea Nitrogen 12 mg/dL (6-20); Calcium 10.1 mg/dL (8.5-10.5); Carbon Dioxide 23 mmol/L (22-29); Chloride 100 mmol/L (98-107); Creatinine Clr Calc Pharmacy 87.0499; Globulin 3.9 g/dL (1.3-4.6); Glucose 119 mg/dL (65-115); Lipase 25 U/L (13-60); Osmolality Calculated 287 mOsm/kg (285-295); Potassium 4.0 mmol/L (3.5-5.1); Sodium 138 mmol/L (136-145); Total Protein 8.9 g/dL (6.6-8.7)
--- NOTE | 2025-03-25 07:54 | CT_ITS ---
WS: [id number] Exam: CT abdomen pelvis con [id number] Date/Time of Exam: 03/25/2025 8:14 AM Reason For Exam: Abdominal pain, leukocytosis DLP: 662.[address] scans at [facility] use at least one of these dose optimization techniques: automated exposure control; mA and/or kV adjustment per patient size (includes targeted exams where dose is matched to clinical indication); or iterative reconstruction. Comparison 02/01/2022. Mild plaque atelectasis in the lung bases. Several small bilateral renal cysts are noted. No sign of renal obstruction. Normal adrenal glands. Hydropic gallbladder noted with several prominent stones in the neck of the gallbladder. No sign of acute cholecystitis or gallbladder wall edema. Unremarkable liver, spleen and pancreas. The IVC and abdominal aorta are unremarkable. The stomach and small bowel appear normal. There is colonic diverticulosis but no sign of acute diverticulitis. Normal appendix identified. No lymphadenopathy or mass in the abdomen or pelvis. No ascites. Prostatomegaly. The prostate gland measures 5.6 cm in greatest transverse dimension. Urinary bladder is unremarkable. Very small bilateral fat filled inguinal hernias. No destructive bone lesions. Tiny fat filled periumbilical hernia. Degeneration of the L5-S1 intervertebral disc. CT/CT abdomen pelvis con [id number] IMPRESSION: 1. No mass, lymphadenopathy or acute process in the abdomen or pelvis. 2. Hydropic gallbladder with numerous prominent stones in the neck of the gallb ladder. The appearance is unchanged. No sign of acute cholecystitis. 3. Multiple small bilateral renal cysts. Colonic diverticulosis. Other minor fi ndings as above.
[2025-03-25 08:20] LABS: Glucose Urine UA Negative (Normal); Nitrate Urine Negative (Negative); Specific Gravity, Urine 1.016 (1.005-1.030)
[2025-03-25 08:23] LABS: Add Urine Microscopic? YES
--- NOTE | 2025-03-25 09:07 | US_ITS ---
WS: [id number] RIGHT UPPER QUADRANT ULTRASOUND HISTORY: abd pain COMPARISON: Prior CT 03/25/2025 Liver: 13.7 cm in length. Normal size liver and echogenicity. No bile duct dilatation or mass. Portal Vein: Normal hepatopetal flow with monophasic waveform. Gallbladder: Normally distended gallbladder. Numerous stones in the gallbladder neck. These stones were noted on CT also and may be entrapped at the gallbladder neck. No Brito's sign. The stones in the gallbladder neck are very close associated with the cystic duct. No pericholecystic fluid. CBD: 0.4 cm Pancreas: Completely obscured. Right kidney: 9.8 cm in length. Normal size and echogenicity. No hydronephrosis or mass. Aorta and IVC: Unremarkable abdominal aorta and IVC. No ascites. US/US gall bladder [id number] IMPRESSION: 1. Normally distended gallbladder with stones in the gallbladder neck. These s tones may be entrapped at the gallbladder neck. No hydrops at this time and no intrahepatic duct dilatation. These stones in the gallbladder neck are very garth sely associated with the cystic duct. Consider surgical evaluation for cholecys tectomy. 2. No intrahepatic duct dilatation.
[2025-03-25] MEDS: morphine 4 mg/mL SDV 1 mL IVP (10:13)
[2025-03-25] MEDS: piperacillin-tazobactam 3.375 GM in sodium chloride 0.9% (plus) 50 ML IV ×2 (10:13→17:02)
--- NOTE | 2025-03-25 10:20 | PM.MISC ---
Miscellaneous Note Note: Full consult note to follow. Symptomatic cholelithiasis. History of CAD known to cardiology. Will be admitted to medicine for cardiology clearance and cholecystectomy.
--- NOTE | 2025-03-25 10:22 | PM.HP ---
Providers/Chief Complaint Primary Care Provider: Joellen Dash Chief Complaint: Abd Pain History of Present Illness Anant Rowland is a 59 year old male Medications/Allergies Home Medications ?Medication ?Instructions ?Recorded ?Confirmed ?Last Taken ?Type tamsulosin 0.4 mg capsule 0.4 mg PO DAILY 01/26/23 03/25/25 03/24/25 History albuterol sulfate 90 mcg/actuation 2 puff inhalation Q6H PRN 04/07/23 03/25/25 Unknown Rx aerosol inhaler shortness of breath or wheezing #8.5 grams budesonide-formoterol HFA 80 2 puff inhalation BID #10.2 grams 04/07/23 03/25/25 06/10/23 Rx mcg-4.5 mcg/actuation aerosol inhaler (Symbicort) nitroglycerin 0.4 mg sublingual 0.4 mg sublingual Q5M PRN Chest 06/11/23 03/25/25 Unknown Rx tablet Pain #25 tabs atorvastatin 40 mg tablet 40 mg PO BEDTIME #90 tabs 07/09/24 03/25/25 03/24/25 19:00 Rx lisinopril 10 mg tablet 10 mg PO DAILY #90 tabs 09/07/24 03/25/25 03/24/25 Rx clopidogrel 75 mg tablet 75 mg PO DAILY #90 tabs 10/08/24 03/25/25 03/24/25 Rx amlodipine 10 mg tablet 10 mg PO DAILY #90 tabs 10/26/24 03/25/25 03/24/25 Rx amoxicillin 875 mg tablet 875 mg PO BID 03/25/25 03/25/25 03/24/25 History metoprolol succinate 25 mg See Rx Instructions .Route .COMPLEX 03/25/25 03/25/25 Unknown History tablet,extended release 24 hr pantoprazole 40 mg tablet,delayed 40 mg PO BID 03/25/25 03/25/25 03/24/25 History release Allergies Allergy/AdvReac Type Severity Reaction Status Date / Time No Known Allergies Allergy Verified 11/05/24 11:15 PFSH Acute PFSH: Medical History Coronary artery disease Elevated troponin Chest pain Hypertension Non-ST elevation AR (NSTEMI) Hypertensive emergency Social History Smoking and tobacco/nicotine status: never used tobacco/nicotine Alcohol intake: never Substance/Drug Use: never Vitals/I&O/Wt Last Vital Signs Temp 97.6 F 03/25/25 07:12 Pulse 91 03/25/25 09:47 Resp 18 03/25/25 10:13 BP 187/112 03/25/25 09:47 Pulse Ox 96 03/25/25 10:13 O2 Del Method Room Air 03/25/25 09:47 Weight last 48 hrs Weight 190 lb Data 03/25/25 07:27 03/25/25 07:27 A&P PDMP PDMP Reviewed: Not Reviewed Coding Level of Care Code Acute Code for Concepcion Santiago
--- NOTE | 2025-03-25 11:04 | ECG_ITS ---
[facility] 2025-[facility]25 Pat Name: Anant Rowland Department: Room: Gender: Male Pattern Technician: : 1965 Requested By: Blane Cleveland Order Number: [id number] Kai MD: Riya Angeles M.D. Measurements Intervals [place] Rate: 72 P: 67 VT: 160 QRS: 60 QRSD: 102 T: -1 QT: 365 QTc: 400 Interpretive Statements SINUS RHYTHM NONSPECIFIC T-WAVE ABNORMALITY Compared to ECG 11/05/2024 11:44:34 T-wave abnormality now present Electronically Signed On 03-25-2025 20:27:31 CDT by Riya Angeles M.D. [email or web address]
--- NOTE | 2025-03-25 12:00 | XR_ITS ---
WS: [id number] Exam: XR chest 1V portable [id number] Date/Time of Exam: 03/25/2025 12:01 PM Reason For Exam: [place] Lungs are clear and fully inflated. The cardiac silhouette is prominent most likely due to limited inspiration and AP portable technique. No pleural effusion or pneumothorax. The mediastinum is normal in contour. Normal bony structures. XR/XR chest 1V portable [id number] IMPRESSION: 1. Prominent cardiac silhouette probably due to limited inspiration and AP port able technique. No acute process is suspected.
--- NOTE | 2025-03-25 12:25 | USCV_ITS ---
Anant Rowland Age: 59 Gender: M : 1965 Exam Date: 03/25/2025 13:40 Ordering Phys: Blane Cleveland MD Technologist: MIGUEL [place] [facility] [place]: cp sob cad BP: 167 / 89 HR: Rhythm: Sinus Technical Quality: Adequate MEASUREMENTS (Male / Female) Normal Values 2D ECHO LV Diastolic Diameter PLAX 4.6 cm 4.2 - 5.9 / 3.9 - 5.3 cm IVS Diastolic Thickness 1.3 cm 0.6 - 1.0 / 0.6 - 0.9 cm IVS Systolic Thickness 1.4 cm LVPW Diastolic Thickness 1.4 cm 0.6 - 1.0 / 0.6 - 0.9 cm LVPW Systolic Thickness 1.7 cm LVOT Diameter 2.1 cm LV Ejection Fraction 2D Teich 59.6 % LV Ejection Fraction MOD 4C 74.5 % LV Ejection Fraction MOD 2C 66.2 % LV Ejection Fraction 2C AL 68.6 % LA Diameter 3.8 cm Aorta at Sinotubular Diameter 2.5 cm FINDINGS Left Ventricle Normal left ventricular size, systolic function and wall thickness, with no regional wall motion abnormalities. Left ventricular ejection fraction is estimated at 60 %. Right Ventricle Right Atrium Left Atrium Mitral Valve Aortic Valve Tricuspid Valve Pulmonic Valve Pericardium Aorta IVC CONCLUSIONS Limited echo Normal left ventricular size, systolic function and wall thickness, with no regional wall motion abnormalities. Left ventricular ejection fraction is estimated at 60 %. There is no pericardial effusion. Travis Antunez MD (Electronically Signed) Final Date: 25 March 2025 14:38 S
--- NOTE | 2025-03-25 12:45 | P.HP_ITS ---
Providers/Chief Complaint 2 Admitting Physician: Blane Cleveland Primary Care Provider: Joellen Dash Chief Complaint: Abd Pain History of Present Illness Anant Rowland is a 59 year old man with a history of coronary artery disease (CAD) with prior right coronary artery (RCA) stent placement, hypertension, prior hypertensive emergency, and a bleeding ulcer approximately three months ago, presenting with abdominal pain. Reports epigastric pain radiating across the abdomen and to the back, worse overnight, not relieved by [id number] gas relief medication. Nausea without vomiting. Constipation reported; last bowel movement the day prior, described as suboptimal. Denies fever, chills, sore throat, runny nose, sneezing, cough. Denies melena, hematochezia, and hematemesis; specifically denies ?coffee ground? material. Describes chronic right-sided chest pains previously, and exertional chest tightness and stabbing pains with reduced exercise tolerance (limited to about 30 minutes of activity due to chest pain and shortness of breath). Sleeps propped up on multiple pillows on a couch; cannot lie flat and has slept this way for ~20 years. Reports significant secondhand smoke exposure; never smoked personally. Had prior pulmonary function testing years ago showing reduced intake and conversion of inspired air; no specific diagnosis recalled; has had difficulty reestablishing pulmonology follow-up. Recent dental infection with a tooth extraction last Tuesday; currently on amoxicillin with two doses remaining (missed one dose last night due to pain). States prostate-related urinary stinging at times and uses tamsulosin; no gross hematuria. Avoids nonsteroidal anti-inflammatory drugs (NSAIDs) due to prior ulcer and blood thinners but did take a few ibuprofen and acetaminophen recently for pain when off blood thinners. Was prescribed a proton pump inhibitor (PPI; pantoprazole) for three months after the ulcer; ran out ~5?7 days ago. Reports prior IV pantoprazole during hospitalization was associated with left testicular pain and swelling, which resolved after switching to oral dosing. Cardiovascular history includes an abnormal stress test in October showing a small reversible defect in the mid- inferolateral segment (possible artifact due to inconsistency on prone imaging), ejection fraction (EF) 66%, and no gross wall motion abnormalities; more recently, another stress test through a new research neuropsychologist reportedly did not show anything significantly abnormal. Currently follows with cardiology; was advised to continue clopidogrel (Plavix) and to stop aspirin. Trial of isosorbide mononitrate (Imdur) in the past was not tolerated and discontinued. Blood pressures at home historically in 120?130s/70?80s but over the last 4?6 weeks have increased to 140?150s; this morning was 160 systolic. Took amlodipine and lisinopril yesterday morning; had not yet taken morning doses at time of ED presentation. Review of Systems 2 Const: Denies: fever(s), chills, body aches or malaise ENMT: Denies: throat pain Card: Denies: chest pain, edema, pre-syncope or dyspnea on exertion Resp: Denies: dyspnea, productive cough, change in phlegm color or hemoptysis GI: Reports: abdominal pain, nausea and constipation; Denies: vomiting, diarrhea, hematochezia or melena : Denies: flank pain, difficulty urinating, urinary frequency or hematuria Musc: Denies: back pain, joint swelling or joint redness Skin/Breast: Denies: rash or new lesions Neuro: Denies: headache(s) or confusion Medications/Allergies Home Medications ?Medication ?Instructions ?Recorded ?Confirmed ?Last Taken ?Type tamsulosin 0.4 mg capsule 0.4 mg PO DAILY 01/26/2303/24/25 History albuterol sulfate 90 mcg/actuation 2 puff inhalation Q 6H PRN 04/07/23 03/25/25 Unknown Rx aerosol inhaler shortness of breath or wheez ing #8.5 grams budesonide-formoterol HFA 80 2 puff inhalation BID #10 .2 grams 04/07/23 03/25/25 06/10/23 Rx mcg-4.5 mcg/actuation aerosol inhaler (Symbicort) nitroglycerin 0.4 mg sublingual 0.4 mg sublingual Q5M PRN Chest 06/11/23 03/25/25 Unknown Rx tablet Pain #25 tabs atorvastatin 40 mg tablet 40 mg PO BEDTIME #90 tabs 03/25/25 03/24/25 19:00 Rx lisinopril 10 mg tablet 10 mg PO DAILY #90 tabs 03/0 01/2503/25/25 03/24/25 Rx clopidogrel 75 mg tablet 75 mg PO DAILY #90 tabs 04/0 01/2503/25/25 03/24/25 Rx amlodipine 10 mg tablet 10 mg PO DAILY #90 tabs 10/0303/25/25 03/24/25 Rx amoxicillin 875 mg tablet 875 mg PO BID 03/25/2503/2503/24/25 History metoprolol succinate 25 mg See Rx Instructions .Route .COMPLEX 03/25/25 03/25/25 Unknown History tablet,extended release 24 hr pantoprazole 40 mg tablet,delayed 40 mg PO BID 5 03/25/25 03/24/25 History release Allergies Allergy/AdvReac Type Severity Reaction Status Date / Time pantoprazole AdvReac Intermediate Unknown Unverified 03/25/25 12:04 PFSH Acute 2 PFSH: Medical History Recurrent chest pain Cholelithiasis PUD (peptic ulcer disease) Eosinophilic asthma Coronary artery disease Elevated troponin Chest pain Hypertension Non-ST elevation SD (NSTEMI) Hypertensive emergency Social History Smoking and tobacco/nicotine status: never used tobacco/nicotine Alcohol intake: never Substance/Drug Use: never Vitals/I&O/Wt Last Vital Signs Temp 97.6 F 03/25/25 07:12 Pulse 93 03/25/25 11:47 Resp 18 03/25/25 10:13 BP 140/86 03/25/25 11:47 Pulse Ox 100 03/25/25 11:47 O2 Del Method Room Air 03/25/25 10:56 03/24/25 03/25/25 03/25/25 22:59 06:59 14:59 Intake Total 50 / 50 Balance 50 / 50 Weight last 48 hrs Weight 86.183 kg Physical Exam 2 Narrative: Accompanied by his son Const: COMMON NORMALS: patient oriented x3 and alert GENERAL APPEARANCE: c ooperative ORIENTATION/CONSCIOUSNESS: Yes awake HENMT: COMMON NORMALS: oropharynx normal Neck/C-Spine: COMMON NORMALS: no JVD Resp: COMMON NORMALS: normal respiratory effort and clear to auscultation bilaterally AUSCULTATION: clear to auscultation bilaterally Cardio: COMMON NORMALS: no JVD, regular rhythm, S1 normal heart sound present, S2 normal heart sound present and No murmurs present (Cardio) RHYTHM: regular rhythm HEART SOUNDS: S1 normal heart sound present and S2 normal heart sound present GI: COMMON NORMALS: Normal to inspection, nondistended, normoactive bowel sounds present and Soft to palpation PALPATION: Yes Soft to palpation and Yes Tenderness to palpation present (GI) (epigastrium) Extremity: COMMON NORMALS: no joint enlargement and no pedal edema Neuro: COMMON NORMALS: patient oriented x3 and moves all extremities S ENSORIUM/ORIENTATION: Yes alert Skin: COMMON NORMALS: no rashes or lesions noted GENERAL SKIN EXAM: no rashes or lesions noted Data 03/25/25 07:27 03/25/25 07:27 A&P Assessment and plan 1. Abdominal pain: Epigastric pain radiating across the abdomen and to the back, with associated nausea and constipation; history notable for recent lapse in PPI and recent NSAID use; received analgesia in ED with some relief reported. Unclear whether abdominal pain/gastric pain may be secondary to PUD with recently having ran out of pantoprazole about 10 days ago and having to also take several days of ibuprofen due to tooth infection and pain. Lipase is not elevated. Additionally possible symptomatic cholelithiasis with noted multiple stones in the gallbladder neck without associated cholecystitis. Reviewed vitals, CBC, CMP, CT abdomen pelvis, gallbladder ultrasound, UA, ED provider note, discussed with ED provider, discussed with the surgeon on the case, discussed with his outpatient research neuropsychologist given prior history of coronary disease. - Start pantoprazole (Protonix) IV, then reassess and continue; switch to oral if IV causes problems as previously experienced. Monitor for risk of recurrence of a problem as he reports left testicular swelling with prior pantoprazole IV dosing. He would like to trial IV dosing but will let us know in case of any recurrence of symptoms with switch to p.o. at that point as opposed to just starting with p.o. now. - Discussed with surgery, CLD for now, after midnight keep nothing by mouth (NPO) - Surgery considering EGD assessment for tomorrow to further assess for persistent/recurrent PUD. Another consideration is possible symptomatic cholelithiasis. - Acetaminophen as needed for pain control for mild to moderate pain, IV morphine for severe breakthrough 2. Cholelithiasis: Cholelithiasis with gallbladder neck stones : Imaging in ED showed gallbladder stones clustered at the neck/cystic duct region; symptoms may correlate; no imaging evidence of acute cholecystitis reported. Reviewed lipase - Surgical service contacted by ED; surgical evaluation underway for potential cholecystectomy. - Clarify cardiac status prior to any surgery: Requested records from his research neuropsychologist Dr. Corey in [place] including recent stress test. Additionally obtain limited TTE. Complete troponin EKG series. Discussed with the surgeon. - Recently on antibiotic for dental infection. Leukocytosis. Less likely from gallbladder infection, however, empirically switched to Zosyn for amoxicillin for now as he was not finished with the course yet. 3. PUD (peptic ulcer disease): History of bleeding peptic ulcer : Ulcer approximately three months ago requiring hospitalization and transfusion; endoscopy then showed a lesion near the gastric outlet/duodenum without active bleeding; advised PPI therapy post- discharge but patient recently ran out. - Restart proton pump inhibitor (Protonix). - Avoid NSAIDs. 4. Tooth infection: Dental infection status post extraction : Tooth extracted last week for infection; on amoxicillin with two doses remaining; missed one dose last night due to pain. - No perioral swelling, redness. Does have some leukocytosis, he is not entirely done with his antibiotic course. Will switch to Zosyn for now. 5. Hypertension: Elevated blood pressure in ED; patient missed morning doses; recent weeks of higher home readings compared with baseline. - Resume missed morning doses of amlodipine and lisinopril. Plan: Coronary artery disease with prior RCA stent : Prior RCA stent (~2 years ago). On clopidogrel monotherapy after aspirin was discontinued per cardiology in [place]. Prior stress test in October with small reversible defect possibly artifact; more recent stress testing with new research neuropsychologist reportedly without major abnormalities. Ongoing intermittent exertional chest tightness/dyspnea and stabbing pains limiting activity. Given recent workup symptoms likely may be secondary to microvascular disease as per discussion with his outpatient research neuropsychologist however, additional workup currently to be undertaken with completion of EKG and troponin series, limited echo and - Obtain recent stress test and other cardiology results to clarify cardiac status Eosinophilic asthma: Not in exacerbation. Albuterol as needed. Reviewed CBC, without significant eosinophilia. Will need to reestablish follow-up with pulmonology. History of bleeding peptic ulcer (hospitalized ~3 months ago): Took PPI for 3 months and then ran out about 10 days ago Benign prostatic hyperplasia symptoms: cont tamsulosin Constipation : Patient reports being somewhat constipated with a suboptimal bowel movement the day prior. Requested MiraLAX Leukocytosis : White blood cell count 16.74 K/uL in ED (predominantly neutrophilic). Repeat blood counts Elevated alkaline phosphatase : Alkaline phosphatase 166 U/L in ED; other liver chemistries reportedly normal. Cholelithiasis as above. Discussed with patient and his son. PDMP PDMP Reviewed: Not Reviewed Attestations 2 Medical Necessity Statement*: Admission over 2 midnights at this manage for assessment and management of suspected symptomatic cholelithiasis and gentleman with also recent PUD, underlying CAD with prior stenting with recurrent chest pain, eosinophilic asthma, recent dental infection presenting with abdominal pain and leukocytosis. and High MDM includes amount and/or complexity of data reviewed/ordered [ previous or external records, resulted lab(s)/test(s), ordered lab(s)/test(s) and other healthcare professional discussion] and described risk of complication, morbidity or mortality of management as documented Diagnoses Abdominal pain R10.9 Cholelithiasis K80.20 PUD (peptic ulcer disease) K27.9 Tooth infection K04.7 Hypertension I10
[2025-03-25 13:51] LABS: Troponin(5th) Baseline < 6 ng/L (0-15)
--- NOTE | 2025-03-25 14:45 | ECG_ITS ---
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 Measurements Intervals [place] Rate: 83 P: 45 MI: 159 QRS: 26 QRSD: 89 T: 2 QT: 367 QTc: 431 Interpretive Statements SINUS RHYTHM Compared to ECG 03/25/2025 11:18:25 T-wave abnormality no longer present Electronically Signed On 03-25-2025 20:25:29 CDT by Riya Angeles M.D. [email or web address]
[2025-03-25 16:00] LABS: Troponin 5 2HR 8.91 ng/L (0-15); Troponin 5 2HR Delta 2.91001 ABS# (0-10)
--- NOTE | 2025-03-25 16:03 | PM.CONSULT ---
Providers/Reason For Consult Consulting Physician/Specialty*: Dr. aMrtínez general surgery Reason for Consult*: Cholelithiasis, peptic ulcer disease Attending Physician: Blane Cleveland Primary Care Provider: Joellen Dash History of Present Illness History of Present Illness Anant Rowland is a 59 year old male who came to the ER with abdominal pain. Has a history of peptic ulcer disease. Stopped taking Protonix a few days ago. Epigastric pain got worse. Patient also had a tooth abscess for which she was treated with antibiotics. In the ER he has a leukocytosis, CT scan showed several stones in the neck of the gallbladder without any hard evidence of cholecystitis. On exam patient is mostly tender in epigastrium. Not peritonitic. Medications/Allergies Home Medications ?Medication ?Instructions ?Recorded ?Confirmed ?Last Taken ?Type tamsulosin 0.4 mg capsule 0.4 mg PO DAILY 01/26/23 03/25/25 03/24/25 History albuterol sulfate 90 mcg/actuation 2 puff inhalation Q6H PRN 04/07/23 03/25/25 Unknown Rx aerosol inhaler shortness of breath or wheezing #8.5 grams budesonide-formoterol HFA 80 2 puff inhalation BID #10.2 grams 04/07/23 03/25/25 06/10/23 Rx mcg-4.5 mcg/actuation aerosol inhaler (Symbicort) nitroglycerin 0.4 mg sublingual 0.4 mg sublingual Q5M PRN Chest 06/11/23 03/25/25 Unknown Rx tablet Pain #25 tabs atorvastatin 40 mg tablet 40 mg PO BEDTIME #90 tabs 07/09/24 03/25/25 03/24/25 19:00 Rx lisinopril 10 mg tablet 10 mg PO DAILY #90 tabs 09/07/24 03/25/25 03/24/25 Rx clopidogrel 75 mg tablet 75 mg PO DAILY #90 tabs 10/08/24 03/25/25 03/24/25 Rx amlodipine 10 mg tablet 10 mg PO DAILY #90 tabs 10/26/24 03/25/25 03/24/25 Rx amoxicillin 875 mg tablet 875 mg PO BID 03/25/25 03/25/25 03/24/25 History metoprolol succinate 25 mg See Rx Instructions .Route .COMPLEX 03/25/25 03/25/25 Unknown History tablet,extended release 24 hr pantoprazole 40 mg tablet,delayed 40 mg PO BID 03/25/25 03/25/25 03/24/25 History release polyethylene glycol 3350 17 gram 17 g PO BID@0500,1700 #30 ea 03/26/25 Unknown Rx oral powder packet sucralfate 1 gram tablet 1 g PO BID 6 weeks #84 tabs 03/26/25 Unknown Rx Allergies Allergy/AdvReac Type Severity Reaction Status Date / Time pantoprazole AdvReac Intermediate Unknown Unverified 03/25/25 12:04 Current Medications Generic Name Dose Route Start Last Admin Trade Name Kwabenaq PRN Reason Stop Dose Admin Amlodipine Besylate 10 mg 03/25/25 15:05 03/25/25 15:43 Amlodipine 10 Mg Tablet PO 10 mg DAILY BURKE Administration Clopidogrel Bisulfate 75 mg 03/25/25 15:20 03/25/25 15:43 Clopidogrel 75 Mg Tablet PO 75 mg DAILY BURKE Administration Enoxaparin Sodium 40 mg 03/25/25 12:45 03/25/25 13:12 Enoxaparin 40 Mg/0.4 Ml Syringe SUBCUT 40 mg Q24H BURKE Administration Sodium Chloride 1,000 mls @ 50 mls/hr 03/25/25 12:08 03/25/25 13:12 Sodium Chloride 0.9% IV 50 mls/hr .Q20H BURKE Administration Lisinopril 10 mg 03/25/25 15:05 03/25/25 15:43 Lisinopril 10 Mg Tablet PO 10 mg DAILY BURKE Administration PFSH Acute PFSH: Medical History (Updated 03/25/25 @ 15:56 by Vineet Carreon DO) Recurrent chest pain Cholelithiasis PUD (peptic ulcer disease) Eosinophilic asthma Coronary artery disease Elevated troponin Chest pain Hypertension Non-ST elevation [place] (NSTEMI) Hypertensive emergency Social History Smoking and tobacco/nicotine status: never used tobacco/nicotine Alcohol intake: never Substance/Drug Use: never Vitals/I&O/Wt Last Vital Signs Temp 97.9 F 03/25/25 12:45 Pulse 87 03/25/25 12:45 Resp 17 03/25/25 12:45 BP 151/94 03/25/25 12:45 Pulse Ox 95 03/25/25 12:45 O2 Del Method Room Air 03/25/25 12:45 03/25/25 03/25/25 03/25/25 06:59 14:59 22:59 Intake Total 1050 / 1050 Balance 1050 / 1050 Weight last 48 hrs Weight 190 lb Physical Exam Narrative: Chest: Unlabored breathing room air. No lymphadenopathy. Heart: Regular rate and rhythm. Abdomen: Soft, tender epigastrium. Non peritonitic. Data 03/26/25 04:39 03/26/25 04:39 A&P Assessment and plan 1. Abdominal pain: 2. Cholelithiasis: Plan: 59-year-old male who presented with epigastric pain. History of peptic ulcer disease and stopped Protonix a few days ago. Patient does have cholelithiasis although no evidence of cholecystitis. Leukocytosis may be secondary to tooth abscess. He does have a history of coronary artery disease so we will get cardiology clearance in case he needs a cholecystectomy. Will treat Protonix and reassess in the morning. PDMP PDMP Reviewed: Not Reviewed Coding Level of Care Code 04175 Diagnoses Abdominal pain R10.9 Cholelithiasis K80.20
[2025-03-25] MEDS: polyethylene glycol 3350 Pkt 17 gm PO (17:03)
--- NOTE | 2025-03-25 18:13 | ECG_ITS ---
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 Measurements Intervals [place] Rate: 80 P: 46 TN: 164 QRS: 21 QRSD: 101 T: -7 QT: 350 QTc: 405 Interpretive Statements SINUS RHYTHM Compared to ECG 03/25/2025 17:07:24 No significant changes Electronically Signed On 03-25-2025 20:24:50 CDT by Riya Angeles M.D. [email or web address]
[2025-03-25 19:43] LABS: Troponin 5 6HR 7.99 ng/L (0-15); Troponin 5 6HR Delta 1.99001 ng/L (0-12)
[2025-03-25] MEDS: pantoprazole 40 mg SDV IVP (20:21)
[2025-03-26] VITALS: BP 137/80; PULSE 77; RESP 16; TEMP 37.1; O2SAT 95
[2025-03-26 04:00] VITALS: BP 140/73; PULSE 74; RESP 16; TEMP 36.9; O2SAT 95
[2025-03-26 04:55] LABS: Hematocrit 45.6 % (37-53); Hemoglobin 14.80 g/dL (11.27-16.99); Mean Corpuscular HGB Conc 32.5 g/dL (30-55); Mean Corpuscular Hemoglobin 26.7 pg (27-33); Mean Corpuscular Volume 82.2 fl (82-101); Nucleated Red Blood Cells % 0 %; Platelet Count 270 10^3/cmm (157-399); Red Blood Count 5.55 10^6/uL (3.85-5.65); White Blood Count 9.44 10^3/uL (3.29-11.43)
[2025-03-26 05:29] LABS: Alanine Aminotransferase 24 U/L (0-41); Albumin Level 3.8 g/dL (3.5-5.2); Alkaline Phosphatase 118 U/L (40-130); Anion Gap 14.4 (5-19); Aspartate Amino Transferase 17 U/L (0-40); Blood Urea Nitrogen 9 mg/dL (6-20); Calcium 8.9 mg/dL (8.5-10.5); Carbon Dioxide 24 mmol/L (22-29); Chloride 106 mmol/L (98-107); Creatinine Clr Calc Pharmacy 72.4367; Globulin 2.9 g/dL (1.3-4.6); Glucose 105 mg/dL (65-115); Osmolality Calculated 289 mOsm/kg (285-295); Potassium 4.4 mmol/L (3.5-5.1); Sodium 140 mmol/L (136-145); Total Protein 6.7 g/dL (6.6-8.7)
[2025-03-26 05:37] VITALS: PULSE 60
[2025-03-26 07:25] VITALS: BP 108/74; PULSE 73; RESP 17; TEMP 36.9; O2SAT 93
[2025-03-26] MEDS: pantoprazole 40 mg SDV IVP (08:09)
[2025-03-26] MEDS: piperacillin-tazobactam 3.375 GM in sodium chloride 0.9% (plus) 50 ML IV ×2 (08:10)
--- NOTE | 2025-03-26 08:12 | P.PN_ITS ---
Vitals/I&O/Wt Last Vital Signs Temp 98.4 F 03/26/25 07:25 Pulse 73 03/26/25 07:25 Resp 17 03/26/25 07:25 BP 108/74 03/26/25 07:25 Pulse Ox 93 03/26/25 07:25 O2 Del Method Room Air 03/26/25 07:25 03/25/25 03/26/25 03/26/25 22:59 06:59 14:59 Intake Total 530 / 1580 50 / 1630 Output Total 400 / 400 300 / 700 300 / 300 Balance 130 / 1180 -250 / 930 -300 / -300 Weight last 48 hrs Weight 85.91 kg Weight 86.183 kg Physical Exam 2 Const: COMMON NORMALS: patient oriented x3 and alert GENERAL APPEARANCE: c ooperative ORIENTATION/CONSCIOUSNESS: Yes awake HENMT: COMMON NORMALS: oropharynx normal Neck/C-Spine: COMMON NORMALS: no JVD Resp: COMMON NORMALS: normal respiratory effort and clear to auscultation bilaterally AUSCULTATION: clear to auscultation bilaterally Cardio: COMMON NORMALS: no JVD, regular rhythm, S1 normal heart sound present, S2 normal heart sound present and No murmurs present (Cardio) RHYTHM: regular rhythm HEART SOUNDS: S1 normal heart sound present and S2 normal heart sound present GI: COMMON NORMALS: Normal to inspection, nondistended, normoactive bowel sounds present and Soft to palpation PALPATION: Yes Soft to palpation Extremity: COMMON NORMALS: no joint enlargement and no pedal edema Neuro: COMMON NORMALS: patient oriented x3 and moves all extremities S ENSORIUM/ORIENTATION: Yes alert Skin: COMMON NORMALS: no rashes or lesions noted GENERAL SKIN EXAM: no rashes or lesions noted Data 03/26/25 04:39 03/26/25 04:39 A&P Assessment and plan 1. Abdominal pain: Epigastric pain radiating across the abdomen and to the back, with associated nausea and constipation; history notable for recent lapse in PPI and recent NSAID use; received analgesia in ED with some relief reported. Unclear whether abdominal pain/gastric pain may be secondary to PUD with recently having ran out of pantoprazole about 10 days ago and having to also take several days of ibuprofen due to tooth infection and pain. Lipase is not elevated. Additionally possible symptomatic cholelithiasis with noted multiple stones in the gallbladder neck without associated cholecystitis. Reviewed vitals, CBC, CMP, CT abdomen pelvis, gallbladder ultrasound, UA, ED provider note, discussed with ED provider, discussed with the surgeon on the case, discussed with his outpatient band instrument maker given prior history of coronary disease. - Start pantoprazole (Protonix) IV, then reassess and continue; switch to oral if IV causes problems as previously experienced. Monitor for risk of recurrence of a problem as he reports left testicular swelling with prior pantoprazole IV dosing. He would like to trial IV dosing but will let us know in case of any recurrence of symptoms with switch to p.o. at that point as opposed to just starting with p.o. now. - Discussed with surgery, CLD for now, after midnight keep nothing by mouth (NPO) - Surgery considering EGD assessment for tomorrow to further assess for persistent/recurrent PUD. Another consideration is possible symptomatic cholelithiasis. - Acetaminophen as needed for pain control for mild to moderate pain, IV morphine for severe breakthrough 2. Cholelithiasis: Cholelithiasis with gallbladder neck stones : Imaging in ED showed gallbladder stones clustered at the neck/cystic duct region; symptoms may correlate; no imaging evidence of acute cholecystitis reported. Reviewed lipase - Surgical service contacted by ED; surgical evaluation underway for potential cholecystectomy. - Clarify cardiac status prior to any surgery: Requested records from his band instrument maker Dr. Corey in [place] including recent stress test. Additionally obtain limited TTE. Complete troponin EKG series. Discussed with the surgeon. - Recently on antibiotic for dental infection. Leukocytosis. Less likely from gallbladder infection, however, empirically switched to Zosyn for amoxicillin for now as he was not finished with the course yet. 3. PUD (peptic ulcer disease): History of bleeding peptic ulcer : Ulcer approximately three months ago requiring hospitalization and transfusion; endoscopy then showed a lesion near the gastric outlet/duodenum without active bleeding; advised PPI therapy post- discharge but patient recently ran out. - Restart proton pump inhibitor (Protonix). - Avoid NSAIDs. 4. Tooth infection: Dental infection status post extraction : Tooth extracted last week for infection; on amoxicillin with two doses remaining; missed one dose last night due to pain. - No perioral swelling, redness. Does have some leukocytosis, he is not entirely done with his antibiotic course. Will switch to Zosyn for now. 5. Primary hypertension: Elevated blood pressure in ED; patient missed morning doses; recent weeks of higher home readings compared with baseline. - Resume missed morning doses of amlodipine and lisinopril. Plan: Coronary artery disease with prior RCA stent : Prior RCA stent (~2 years ago). On clopidogrel monotherapy after aspirin was discontinued per cardiology in [place]. Prior stress test in October with small reversible defect possibly artifact; more recent stress testing with new band instrument maker reportedly without major abnormalities. Ongoing intermittent exertional chest tightness/dyspnea and stabbing pains limiting activity. 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 Albuterol as needed. Reviewed CBC, without significant eosinophilia. Will need to reestablish follow-up with pulmonology. History of bleeding peptic ulcer (hospitalized ~3 months ago): Took PPI for 3 months and then ran out about 10 days ago Benign prostatic hyperplasia symptoms: cont tamsulosin Constipation : Patient reports being somewhat constipated with a suboptimal bowel movement the day prior. Requested MiraLAX Leukocytosis : White blood cell count 16.74 K/uL in ED (predominantly neutrophilic). Repeat blood counts Elevated alkaline phosphatase : Alkaline phosphatase 166 U/L in ED; other liver chemistries reportedly normal. Cholelithiasis as above. Discussed with patient and his son. PDMP PDMP Reviewed: Not Reviewed Coding Level of Care Code Acute Code for Chg Fwd Diagnoses Abdominal pain R10.9 Cholelithiasis K80.20 PUD (peptic ulcer disease) K27.9 Tooth infection K04.7 Primary hypertension I10 Hypertension type: primary hypertension
[2025-03-26] MEDS: polyethylene glycol 3350 Pkt 17 gm PO (08:16)
--- NOTE | 2025-03-26 08:25 | PM.DCS ---
Discharge Providers Date of Admission: 03/25/25 11:33 Date of Discharge: March 26, 2025 Attending Provider at Admission: Blane Cleveland Attending Provider at Discharge: Blane Clevealnd Primary Care Provider: Joellen Dash Diagnoses at Discharge Discharge Diagnosis 1. Abdominal pain: 2. Cholelithiasis: 3. PUD (peptic ulcer disease): 4. Tooth infection: 5. Primary hypertension: Reason for Visit Reason for Visit: Abd Pain Brief History: Anant Rowland is a 59 year old man with a history of coronary artery disease (CAD) with prior right coronary artery (RCA) stent placement, hypertension, prior hypertensive emergency, and a bleeding ulcer approximately three months ago, presenting with abdominal pain. Reports epigastric pain radiating across the abdomen and to the back, worse overnight, not relieved by [id number] gas relief medication. Nausea without vomiting. Constipation reported; last bowel movement the day prior, described as suboptimal. Denies fever, chills, sore throat, runny nose, sneezing, cough. Denies melena, hematochezia, and hematemesis; specifically denies ?coffee ground? material. Describes chronic right-sided chest pains previously, and exertional chest tightness and stabbing pains with reduced exercise tolerance (limited to about 30 minutes of activity due to chest pain and shortness of breath). Sleeps propped up on multiple pillows on a couch; cannot lie flat and has slept this way for ~20 years. Reports significant secondhand smoke exposure; never smoked personally. Had prior pulmonary function testing years ago showing reduced intake and conversion of inspired air; no specific diagnosis recalled; has had difficulty reestablishing pulmonology follow-up. Recent dental infection with a tooth extraction last Tuesday; currently on amoxicillin with two doses remaining (missed one dose last night due to pain). States prostate-related urinary stinging at times and uses tamsulosin; no gross hematuria. Avoids nonsteroidal anti-inflammatory drugs (NSAIDs) due to prior ulcer and blood thinners but did take a few ibuprofen and acetaminophen recently for pain when off blood thinners. Was prescribed a proton pump inhibitor (PPI; pantoprazole) for three months after the ulcer; ran out ~5?7 days ago. Reports prior IV pantoprazole during hospitalization was associated with left testicular pain and swelling, which resolved after switching to oral dosing. Cardiovascular history includes an abnormal stress test in October showing a small reversible defect in the mid-inferolateral segment (possible artifact due to inconsistency on prone imaging), ejection fraction (EF) 66%, and no gross wall motion abnormalities; more recently, another stress test through a new market research senior project manager reportedly did not show anything significantly abnormal. Currently follows with cardiology; was advised to continue clopidogrel (Plavix) and to stop aspirin. Trial of isosorbide mononitrate (Imdur) in the past was not tolerated and discontinued. Blood pressures at home historically in 120?130s/70?80s but over the last 4?6 weeks have increased to 140?150s; this morning was 160 systolic. Took amlodipine and lisinopril yesterday morning; had not yet taken morning doses at time of ED presentation. Hospital Course Hospital Course He was admitted and with IV PPI. Initiated on MiraLAX for constipation. Ambulated. Maintained on bowel rest initially with sips and chips, advance to clear liquid diet, without nausea or vomiting. She was assessed by surgery, with consideration of options including an endoscopy and cholecystectomy for further evaluation of PUD, symptomatic gallstones, and was maintained NPO after midnight. Records were requested from his market research senior project manager in [place] Dr. Corey, where he had also had a repeat recent stress test which she stated was unremarkable. Cardiac studies here came back reassuring with unremarkable troponin and EKG series, as well as unremarkable echocardiogram with normal ejection fraction without RWMA. He has been free of any chest pain or pressure. This morning he is feeling much better. He is afebrile, without leukocytosis. Liver parameters are normalized. Abdominal pain has resolved. Brito's negative on exam. He is continued on PPI and as per surgery sucralfate is added with surgical follow-up in 2 weeks for consideration of further steps of evaluation. He is asked to stop and avoid any further NSAIDs. He will complete amoxicillin course for his recent tooth infection and is asked to follow-up for reassessment. MiraLAX is added at discharge for constipation. Physical Exam Const: COMMON NORMALS: patient oriented x3 and alert GENERAL APPEARANCE: cooperative ORIENTATION/CONSCIOUSNESS: Yes awake HENMT: COMMON NORMALS: oropharynx normal Neck/C-Spine: COMMON NORMALS: no JVD Resp: COMMON NORMALS: normal respiratory effort and clear to auscultation bilaterally AUSCULTATION: clear to auscultation bilaterally Cardio: COMMON NORMALS: no JVD, regular rhythm, S1 normal heart sound present, S2 normal heart sound present and No murmurs present (Cardio) RHYTHM: regular rhythm HEART SOUNDS: S1 normal heart sound present and S2 normal heart sound present GI: COMMON NORMALS: Normal to inspection, nondistended, normoactive bowel sounds present, Soft to palpation and non-tender PALPATION: Yes Soft to palpation OTHER: Brito negative Extremity: COMMON NORMALS: no joint enlargement and no pedal edema Neuro: COMMON NORMALS: patient oriented x3 and moves all extremities SENSORIUM/ORIENTATION: Yes alert Skin: COMMON NORMALS: no rashes or lesions noted GENERAL SKIN EXAM: no rashes or lesions noted Discharge Data Studies Completed and Pending Completed Studies During Hospitalization Category Date Time Status CT abdomen pelvis wo con [id number] Stat Cat Scan 03/25/25 07:54 Completed CXRP [XR chest 1V portable [id number]] Routine Exams 03/25/25 12:00 Completed CV. echo limited [id number] Urgent Ultrasound 03/25/25 12:25 Completed US gall bladder [id number] Stat Ultrasound 03/25/25 09:07 Completed Pending at discharge Category Date Time Status Complete Blood Count w/Auto AM LABS Lab 03/27/25 04:00 Ordered Complete Blood Count w/Auto AM LABS Lab 03/28/25 04:00 Ordered Comprehensive Metabolic Panel AM LABS Lab 03/27/25 04:00 Ordered Comprehensive Metabolic Panel AM LABS Lab 03/28/25 04:00 Ordered Radiology Impressions Abdomen/Pelvis CT 03/25/25 07:54 IMPRESSION: 1. No mass, lymphadenopathy or acute process in the abdomen or pelvis. 2. Hydropic gallbladder with numerous prominent stones in the neck of the gallbladder. The appearance is unchanged. No sign of acute cholecystitis. 3. Multiple small bilateral renal cysts. Colonic diverticulosis. Other minor findings as above. Gallbladder Ultrasound 03/25/25 09:07 IMPRESSION: 1. Normally distended gallbladder with stones in the gallbladder neck. These stones may be entrapped at the gallbladder neck. No hydrops at this time and no intrahepatic duct dilatation. These stones in the gallbladder neck are very closely associated with the cystic duct. Consider surgical evaluation for cholecystectomy. 2. No intrahepatic duct dilatation. Chest X-Ray 03/25/25 12:00 IMPRESSION: 1. Prominent cardiac silhouette probably due to limited inspiration and AP portable technique. No acute process is suspected. Laboratory Results WBC 9.44 10^3/uL (3.29-11.43) 03/26/25 04:39 RBC 5.55 10^6/uL (3.85-5.65) 03/26/25 04:39 Hgb 14.80 g/dL (11.27-16.99) 03/26/25 04:39 Hct 45.6 % (37-53) 03/26/25 04:39 MCV 82.2 fl (82-101) 03/26/25 04:39 MCH 26.7 pg (27-33) L 03/26/25 04:39 MCHC 32.5 g/dL (30-55) 03/26/25 04:39 RDW 13.3 % (12.1-15.1) 03/26/25 04:39 Plt Count 270 10^3/cmm (157-399) 03/26/25 04:39 MPV 9.4 fL (7.4-10.4) 03/26/25 04:39 Neut % (Auto) 55.2 % 03/26/25 04:39 Lymph % (Auto) 32.8 % 03/26/25 04:39 Elk % (Auto) 10.0 % 03/26/25 04:39 Eos % (Auto) 1.4 % 03/26/25 04:39 Baso % (Auto) 0.4 % 03/26/25 04:39 Neut # (Auto) 5.21 10^3/uL (1.8-7.7) 03/26/25 04:39 Lymph # (Auto) 3.1 10^3/uL (0.8-4.8) 03/26/25 04:39 Elk # (Auto) 0.9 10^3/uL (0.2-0.9) 03/26/25 04:39 Eos # (Auto) 0.1 10^3/uL (0.0-0.8) 03/26/25 04:39 Baso # (Auto) 0.0 10^3/uL (0.0-0.1) 03/26/25 04:39 Nucleated RBC % (auto) 0 % 03/26/25 04:39 Nucleated RBCs # 0.0 /100WBC 03/26/25 04:39 Sodium 140 mmol/L (136-145) 03/26/25 04:39 Potassium 4.4 mmol/L (3.5-5.1) 03/26/25 04:39 Chloride 106 mmol/L (98-107) 03/26/25 04:39 Carbon Dioxide 24 mmol/L (22-29) 03/26/25 04:39 Anion Gap 14.4 (5-19) 03/26/25 04:39 BUN 9 mg/dL (6-20) 03/26/25 04:39 Creatinine 1.2 mg/dL (0.7-1.2) 03/26/25 04:39 GFR Calculation 62.4 mL/min (90-130) L 03/26/25 04:39 Glucose 105 mg/dL (65-115) 03/26/25 04:39 Calculated Osmolality 289 mOsm/kg (285-295) 03/26/25 04:39 Calcium 8.9 mg/dL (8.5-10.5) 03/26/25 04:39 Total Bilirubin 1.0 mg/dL (0.15-1.2) 03/26/25 04:39 AST 17 U/L (0-40) 03/26/25 04:39 ALT 24 U/L (0-41) 03/26/25 04:39 Alkaline Phosphatase 118 U/L (40-130) 03/26/25 04:39 Troponin T Baseline < 6 ng/L (0-15) 03/25/25 13:21 Troponin T 120 Minute 8.91 ng/L (0-15) 03/25/25 15:26 Delta Troponin T 2.30179 ABS# (0-10) 03/25/25 15:26 Troponin T Hi Sens 6Hr 7.99 ng/L (0-15) 03/25/25 19:18 Troponin T Hi Sens 6Hr Delta 1.31335 ng/L (0-12) 03/25/25 19:18 Total Protein 6.7 g/dL (6.6-8.7) D 03/26/25 04:39 Albumin 3.8 g/dL (3.5-5.2) 03/26/25 04:39 Globulin 2.9 g/dL (1.3-4.6) 03/26/25 04:39 Lipase 25 U/L (13-60) 03/25/25 07:27 Urine Color Yellow (Yellow) 03/25/25 08:09 Urine Appearance Clear (CLEAR) 03/25/25 08:09 Urine pH 7.0 (5-7) 03/25/25 08:09 Ur Specific [place] 1.016 (1.005-1.030) 03/25/25 08:09 Urine Protein Trace (Negative) A 03/25/25 08:09 Urine Glucose (UA) Negative (Normal) 03/25/25 08:09 Urine Ketones Negative (Negative) 03/25/25 08:09 Urine Blood Non-haemolysed trace (Negative) 03/25/25 08:09 Urine Nitrate Negative (Negative) 03/25/25 08:09 Urine Bilirubin Negative (Negative) 03/25/25 08:09 Urine Urobilinogen 1.0 mg/dL (Negative) 03/25/25 08:09 Ur Leukocyte Esterase Negative (Negative) 03/25/25 08:09 Urine RBC 3-5 /hpf (0-2) 03/25/25 08:09 Urine WBC 0-5 /hpf (0-5) 03/25/25 08:09 Ur Squamous Epith Cells 0-5 /hpf (0-5) 03/25/25 08:09 Amorphous Sediment Not Reportable 03/25/25 08:09 Urine Bacteria None seen /hpf (NONE) 03/25/25 08:09 Hyaline Casts 0.40 /lpf 03/25/25 08:09 Vitals Last Vital Signs Temp 98.4 F 03/26/25 07:25 Pulse 73 03/26/25 07:25 Resp 17 03/26/25 07:25 BP 108/74 03/26/25 07:25 Pulse Ox 93 03/26/25 07:25 O2 Del Method Room Air 03/26/25 07:25 Discharge Plan Discharge Patient Disposition: Home Condition: Stable Prescriptions: New sucralfate 1 gram tablet 1 g PO BID 42 Days Qty: 84 0RF polyethylene glycol 3350 17 gram Powder In Packet 17 g PO BID@0500,1700 Qty: 30 0RF Continued budesonide-formoterol [Symbicort] 80-4.5 mcg/actuation HFA aerosol inhaler 2 puff inhalation BID Qty: 10.2 3RF albuterol sulfate 90 mcg/actuation HFA aerosol inhaler 2 puff inhalation Q6H PRN (Reason: shortness of breath or wheezing) Qty: 8.5 3RF tamsulosin 0.4 mg capsule 0.4 mg PO DAILY atorvastatin 40 mg tablet 40 mg PO BEDTIME Qty: 90 3RF lisinopril 10 mg tablet 10 mg PO DAILY Qty: 90 3RF clopidogrel 75 mg tablet 75 mg PO DAILY Qty: 90 3RF amlodipine 10 mg tablet 10 mg PO DAILY Qty: 90 3RF nitroglycerin 0.4 mg Tablet, Sublingual 0.4 mg sublingual Q5M PRN (Reason: Chest Pain) Qty: 25 3RF amoxicillin 875 mg tablet 875 mg PO BID pantoprazole 40 mg tablet,delayed release (DR/EC) 40 mg PO BID metoprolol succinate 25 mg tablet extended release 24 hr See Rx Instructions .ROUTE .COMPLEX Rx Instructions: TAKE 1 TABLET BY MOUTH ONCE DAILY HOLD FOR BP LESS THAN 100 OR HEART RATE LESS THAN 60 Discharge Order = DC NOW: Discharge Order (Routine); Ordered 03/26/25 Ordered By: Blane Cleveland Referrals: Zoya Vazquez MD [Physician, Pulmonology] - 06/06/25 10:00 am Referral Note: Eosinophilic asthma Will call if an appointment becomes available sooner. Rafita Martínez MD [Physician, General Surgery] - 04/08/25 8:20 am Joellen Dash PA-C [Primary Care Provider, Unknown] - 03/28/25 10:00 am Discharge Diet: Cardiac Patient Instructions: Constipation - Adult, Sucralfate (By mouth), Peptic Ulcer (GEN), Gallstones (GEN), Patient Portal & Felicia Instructions Activity Restrictions/Additional Instructions: Please discontinue and avoid NSAIDs (like ibuprofen and other similar medications). Complete amoxicillin course. Follow-up with Dr. Martínez in office for reassessment in 2 weeks With regards to peptic ulcer disease and gallstones. Follow-up with your dentist for reassessment after tooth infection. Continue to monitor blood pressures at home, target long-term blood pressures below 130/80. Measure and save your blood pressures and follow-up with your primary doctor for continued optimization of control. Follow-up to reestablish with pulmonology with regards to eosinophilic asthma. Avoid dehydration, add lots of fruits and veggies and high-fiber foods to diet to help manage constipation. Continue constipation medications. Ambulate. Seek medical attention in case of any worsening or new concerning symptoms. Discharge Attestations Time Spent in Discharge Care*: greater than 30 min Quality Metrics Clinical Quality Measures [ No reported AMI, CVA or VTE this stay] Coding Level of Care Code 49963 Total time (in minutes) for Discharge: 40 Diagnoses Abdominal pain R10.9 Cholelithiasis K80.20 PUD (peptic ulcer disease) K27.9 Tooth infection K04.7 Primary hypertension I10 Hypertension type: primary hypertension
--- NOTE | 2025-03-26 11:02 | PC.CHAP ---
Pastoral Care Encounter/Spiritual Assessment Type of Contact [] Declined administrative operations coordinator visit [] Patient/Family/Request visit [] Outpatient visit [] Follow-up visit [] Physician referral [] Code/Alert [x] Routine visit [] Staff referral [] Actively dying [] Patient sleeping [] Family support [] [] Out of room [] Palliative care [] [] Receiving care in room [] Pre-surgical visit [] Trauma [] Long length of stay [] ICU visit [] Other: Relational/Emotional Strength [x] Patient feels connected with others/family/visitors/staff [] Distress [] Loneliness/isolation [] Abandonment Spirituality of Patient [x] Person of Evelyn [] Attends Religion of their Evelyn [x] Believes in Prayer [] Reads Bible or Catholic materials [] There are Spiritual issues to be addressed Revolving Inventory Clerk Interventions [x] Prayer [x] Active listening [] Non-anxious presence [x] Spiritual/emotional support [] Crisis/trauma care [] Spiritual counseling [] Bereavement support [] Provided bereavement packet [] Provided Bible/devotional materials [] Provided toy/stuffed animal, coloring book to patient or family member [] Provided Communion [] Anointing/[place] [] Salvation [x] Completed spiritual assessment [] Other: Impact on Illness or Injury [] Angry [] Fearful [] Anxious [] Often cries [] Exhaustion [] Unable to work [] Unable to attend jain [] Unable to walk/stand [] Unable to read [] Unable to drive [] Unable to eat/drink [] Unable to sleep [] Unable to be with family [] Patient intubated [] Other: Summary Time spent with patient 5 min
--- OUTSIDE RECORDS SUMMARY | 2025-03-26 12:15 | XMS_ITS | Encounter Summary ---
Author Organization [facility] Address [address] [place] [address] Care Team Providers Care Head Cleaning Porter Name Role Phone Unavailable Primary Care Provider Unavailabl e Encounter Details Date Type Department Care Team (Late st Contact Info) Description 04/11/2006 Outpatient Historical [facility] [address] [place] [id number] Dennis Vera MD [address] [place] [address] [address] [place] [address] Social History Tobacco Use Types Packs/Day Years Used Date Smoking Tobacco: Never Assessed Sex and Gender Information Value Date Recorded Sex Assigned at Not on file 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
--- OUTSIDE RECORDS SUMMARY | 2025-03-26 12:15 | XMS_ITS | Clinical Summary ---
Author Organization 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 Take 1 Tablet [...] - 02/27/2025 11:59 PM CDT Hospital Encounter [facility] Echo [address] [place] [address] Madhav Garcia MD Discharge Disposition: Home or [...] - 01/21/2025 11:59 PM CDT Hospital Encounter [facility] Nuclear Medicine [address] [place] [phone] Madhav Garcia MD Discharge Disposition: Home or Self Care 01/21/2025 11:44 AM CDT - 01/21/2025 11:59 PM CDT Hospital Encounter [facility] Nuclear Medicine [address] [place] [phone] Madhav Garcia MD Discharge Disposition: Home or Self Care 01/17/2025 Telephone [facility] [address] [place] [phone] Kaykay Gutierrez RN follow up 01/16/2025 External Device Data STL ABSTRACTION Provider, Abstract 01/09/2025 Results Follow-Up [facility] [place] [address] [place] [address] Madhav Garcia MD NM PHARMACOLOGICAL STRESS TEST 01/09/2025 Orders Only [facility] [address] [place] [phone] Provider, Abstract 01/08/2025 Abstract [facility] [address] [place] [phone] Provider, Abstract 01/07/2025 Results Follow-Up 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 Gender Identity Not on file Sexual Orientation [...] Description 04/10/2025 9:40 AM CDT Office Visit [facility] [address] [place] [address] Madhav Garcia MD [address] [place] [phone] Keshia Luis, MARKETING OPERATIONS SPECIALIST [address] [place] [address] Health Maintenance Due Date Last [...] CDT Mixed hyperlipidemia 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 PET HEART PERF R&S W CT MULTI Routine 01/21/2025 1:26 PM CDT Mixed hyperlipidemia 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 NM PHARMACOLOGICAL STRESS TEST Routine 01/21/2025 12:51 PM CDT Chest pain in adult CBC WITH DIFFERENTIAL Routine 01/03/2025 2:15 PM CDT Lower GI bleed BRAIN NATRIURETIC PEPTIDE, BNP OR PROBNP Routine 01/03/2025 2:12 PM CDT Mixed hyperlipidemia 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 COMPREHENSIVE METABOLIC PANEL Routine 01/03/2025 2:12 PM CDT Mixed hyperlipidemia 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 LIPID PANEL Routine 01/03/2025 2:12 PM CDT Mixed hyperlipidemia 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 GI PATHOGEN PCR PANEL Stat 01/01/2025 12:17 AM CDT COMPREHENSIVE METABOLIC PANEL Stat 12/31/2024 12:49 PM CDT CBC WITH DIFFERENTIAL Stat 12/31/2024 12:49 PM CDT TYPE AND SCREEN Stat 12/31/2024 12:44 PM CDT from Last 3 Months Results * ECHO COMPLETE - CONTRAST AND STRAIN IF INDICATED (02/27/2025 10:05 AM CDT) [facility] EJECTION FRACTION 55 INTERFACE SYSTEM 02/27/2025 9:37 AM CDT Narrative INTERFACE SYSTEM - 02/27/2025 4:55 PM CDT [facility] Cardiovascular Services Echocardiography Laboratory [address] [place] [address] Transthoracic Echocardiography Patient: Anant Rowland Study ID: PREMA Liang Gender: M : 1965 Age: 59 Room: [facility] Study 02/27/2025 Pt Outpatient Date: Status: Study 09:37:20 AM CSN #: [id number] Time: Ordering:Madhav Garcia MD University Professor: EZEKIEL Indications and History: Mixed hyperlipidemia [E78.2 (ICD-10-CM)]; 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 Labs, [...] roberto carlos values outside specified reference range. [facility] Echo Labs are accredited with the [facility] Accreditation Commission - Echocardiography. Prepared and Electronically Authenticated Madhav Garcia MD Confirmed 02/27/2025 16:55 Procedure Note Madhav Garcia MD - 02/27/2025 [facility] Cardiovascular Services Echocardiography Laboratory [address] [place] [address] Transthoracic Echocardiography Patient: Anant Rowland Study ID: ANGÉLICA Liang Gender: Guerda : 1965 Age: 59 Room: [facility] Study 02/27/2025 Outpatient Date: Status: Study 09:37:20 AM CSN #: [id number] Time: Ordering:Madhav Garcia MD University Professor: EZEKIEL Indications and History: Mixed hyperlipidemia [E78.2 (ICD-10-CM)]; Coronary artery disease involving alatna coronary artery of alatna heartwith angina pectoris [I25.119 (ICD-10-CM)]. Labs, prior [...] roberto carlos values outside specified reference range. [facility] Echo Labs are accredited with the[facility] Acc[facility] - Echocardiography. Prepared and Electronically Authenticated Madhav Garcia MD Confirmed 02/27/2025 16:55 us Madhav Garcia MD ORDERABLES Final Result Performing Organization Address City/State/[facility] Co de Phone Number INTERFACE SYSTEM [...] smear confirms automated results. Test Performed at: [facility] [address] [place] [address] CelesteFarrah Del Castillo MD Blood 01/03/2025 2:15 PM CDT 01/03/2025 2:16 PM CDT Armando Bolanos MD HEMATOLOGY ORDERABLES Final Result Performing Organization Address [facility]/ZIP Co de Phone Number [facility] [phone] [facility] [address] * (ABNORMAL) BRAIN NATRIURETIC PEPTIDE, BNP OR PROBNP (01/03/2025 2:12 PM CDT) PROBNP, N TERMINAL 263(H) <125 pg/mL [facility] Comment: Test Performed at: [facility] [address] [place] [address] Mauro Del Castillo MD Blood 01/03/2025 2:12 PM CDT 01/03/2025 2:12 PM CDT us Madhav Garcia MD CHEMISTRY ORDERA BLES Final Result Performing Organization Address [facility] Co de Phone Number [facility] [phone] [facility] [address] [place] [address] * (ABNORMAL) LIPID PANEL (01/03/2025 2:12 PM [...] Friedewald equation in the estimation of LDL-C. Rihsi BLUNT et al. DANIEL. 2013;310(19): 3565-9827 (http://education.Etreasurebox/faq/XDF717) CHOL/HDL RATIO 2.5 <5.0 (calc) [facility] NON-HDL CHOLESTEROL 52 <130 mg/dL (calc) [facility] Comment: For patients with diabetes plus 1 major ASCVD risk factor, treating to a non-HDL-C goal of <100 mg/dL (LDL-C of <70 mg/dL) is considered a therapeutic option. Test Performed at: [facility] [address] [place] [address] Mauro Del Castillo MD Blood 01/03/2025 2:12 PM CDT 01/03/2025 2:12 PM CDT us Madhav Jody Garcia MD CHEMISTRY ORDERA BLE Final Result [facility] [phone] [facility] [address] [place] [address] * COMPREHENSIVE METABOLIC PANEL (01/03/2025 2:12 PM CDT) Only the most recent of2 resultswithin the time period is included. GLUCOSE 87 65 - 99 mg/dL [facility] Comment: Fasting reference interval BUN 14 [...] [facility] Comment: Test Performed at: [facility] [address] [place] [address] Mauro Del Castillo MD Blood 01/03/2025 2:12 PM CDT 01/03/2025 2:12 PM CDT us Madhav Jody Garcia MD CHEMISTRY ORDERA BLES Final Result [facility] [phone] [facility] [address] * (ABNORMAL) GI PATHOGEN PCR PANEL (01/01/2025 12:17 AM CDT) Campylobacter by PCR DETECTED (A) Not Detected 01/01/2025 3:01 AM T [facility] Comment: Campylobacter enterocolitis is a self-limiting infection in otherwise healthy children and adults. In cases with high fever, bloody stools, and symptoms lasting greater than one week, antimicrobial treatment may be indicated and can reduce the symptoms and severity as well as reduce the likelihood of serious complications, such as Guillain-Dallas syndrome. Enteropathogenic E. coli (EPEC) by PCR DETECTED (A) Not Detected 01/01/2025 3:01 AM [facility] Comment: Bacterial enterocolitis is a self-limiting infection in otherwise healthy children and adults and these patients should not be treated with antibiotics. Susceptibility testing is not available. Stool STOOL SPECIMEN / Unknown Collection / Unknown 01/01/2025 12:17 AM CDT 01/01/2025 1:12 AM CDT Narrative [facility] - [place] - 01/01/2025 3:01 AM CDT Positive GI [...] MICROBIOLOGY - GENERAL ORDERABLE S Final Result [id number] [address] [place] [address] * TYPE AND SCREEN (12/31/2024 12:44 PM CDT) ABO GROUP O 12/31/2024 1:49 PM CDT [facility] [place] RH (D) TYPE Positive 12/31/2024 1:49 PM CDT [facility] [place] ANTIBODY SCREEN Negative 12/31/2024 1:49 PM CDT [facility] [place] Blood Venipuncture / Unknown 12/31/2024 12:44 PM CDT 12/31/2024 12:56 PM CDT Asa Troyjovan Wyatt BREWERY TECHNICIAN BLOOD BANK ORDERABLES Edited Result - Final [facility] [place] MIGUELIA#[id number] [address] [place] [address], [place] [phone] from Last 3 Months Insurance COUNT INCLUDES THE [facility] PL[facility] [id number] Advance Directives For more information, please contact: [phone] * Full Code (Latest Code Status on File) Date Activated Date Inactivated Comments 12/13/2024 9:52 PM 12/17/2024 4:54 PM
--- OUTSIDE RECORDS SUMMARY | 2025-03-26 12:15 | XMS_ITS | Encounter Summary ---
Author Organization [facility] Address [address] [place] [address] Care Team Providers Care Shoemaker Custom Name Role Phone Unavailable Primary Care Provider Unavailabl e Encounter Details Date Type Department Care Team (Latest Contact Info) Description 03/29/2006 Outpatient Historical 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
--- OUTSIDE RECORDS SUMMARY | 2025-03-26 12:15 | XMS_ITS | Clinical Summary ---
Author Organization [facility] Address [address] 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 Gender Identity Not on file Sexual Orientation Not on file Last Filed Vital Signs Vital Sign Reading Time Taken Comments Blood Pressure 137/107 07/16/2015 5:41 PM LABORATORY CHEMIST Pulse 68 07/21/2012 8:43 AM LABORATORY CHEMIST Temperature 37.1 C (98.8 F) 07/16/2015 4:04 PM LABORATORY CHEMIST Respiratory Rate 16 07/16/2015 5:41 PM LABORATORY CHEMIST Oxygen Saturation 95% 07/16/2015 5:41 PM LABORATORY CHEMIST Inhaled Oxygen Concentration - - Weight 86.2 kg (190 lb) 07/16/2015 4:04 PM LABORATORY CHEMIST Height 172.7 cm (5' 8 ) 07/16/2015 4:04 PM LABORATORY CHEMIST Body Mass Index 28.89 07/16/2015 4:04 PM LABORATORY CHEMIST Plan of Treatment Health Maintenance Due Date [...]
--- OUTSIDE RECORDS SUMMARY | 2025-03-26 12:15 | XMS_ITS | Encounter Summary ---
Author Organization [facility] Address [address] [place] [address] Care Team Providers Care Psychological Tests Sales Agent Name Role Phone Unavailable Primary Care Provider Unavailabl e Encounter Details Date Type Department Care Team (Latest Contact Info) Description 04/05/[address] 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
--- OUTSIDE RECORDS SUMMARY | 2025-03-26 12:15 | XMS_ITS | Encounter Summary ---
Author Organization [facility] Address [address] [place] [address] Care Team Providers Care Talent Acquisition Partner Name Role Phone Unavailable Primary Care Provider Unavailabl e Encounter Details Date Type Department Care Team (Latest Contact Info) Description 05/12/[address] 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
--- OUTSIDE RECORDS SUMMARY | 2025-03-26 12:15 | XMS_ITS | Encounter Summary ---
Author Organization [facility] Address [address] [place] [address] Care Team Providers Care Senior Program Manager Name Role Phone Unavailable Primary Care Provider Unavailabl e Encounter Details Date Type Department Care Team (Latest Contact Info) Description 12/15/2005 Outpatient Historical [facility] Medicine [place] [address] [phone] Festus Beltre MD [address], [place] [phone] Disorders of Sacrum (Primary Dx) Social History Tobacco Use Types Packs/Day Years Used Date Smoking Tobacco: Never Assessed Sex and Gender Information Value Date Recorded Sex Assigned at Not on file 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
--- OUTSIDE RECORDS SUMMARY | 2025-03-26 12:15 | XMS_ITS | Encounter Summary ---
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
--- OUTSIDE RECORDS SUMMARY | 2025-03-26 12:15 | XMS_ITS | Encounter Summary ---
Author Organization [facility] Address [address] [place] [address] Care Team Providers Care Yarn Twister Name Role Phone Unavailable Primary Care Provider Unavailabl e Encounter Details Date Type Department Care Team (Latest Contact Info) Description 07/21/2006 Outpatient Historical [facility] Medicine [place] [address] [phone] Festus Beltre MD [address] [place] [phone] Diverticulosis of Colon (Primary Dx) Social History Tobacco Use Types Packs/Day Years Used Date Smoking Tobacco: Never Assessed Sex and Gender Information Value Date Recorded Sex Assigned at Not on file 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
--- OUTSIDE RECORDS SUMMARY | 2025-03-26 12:15 | XMS_ITS | Encounter Summary ---
Author Organization [facility] Address [address] [place] [address] Care Team Providers Care Creel Operator Name Role Phone Unavailable Primary Care Provider Unavailabl e Encounter Details Date Type Department Care Team (Latest Contact Info) Description 05/12/2006 Outpatient Historical [facility] [place] [phone] Carlton Giang MD [address] [place] [phone] Other Symptoms Involving Digestive System (Primary Dx); Unspecified Constipation Social History Tobacco Use Types Packs/Day Years Used Date Smoking Tobacco: Never Assessed Sex and Gender Information Value Date Recorded Sex Assigned at Not on file 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
--- NOTE | 2025-03-26 12:22 | P.PN_ITS ---
Subjective 2 Subjective: Pain-free Benign abdomen Leukocytosis resolved Vitals/I&O/Wt Last Vital Signs Temp 98.4 F 03/26/25 07:25 Pulse 73 03/26/25 07:25 Resp 17 03/26/25 07:25 BP 108/74 03/26/25 07:25 Pulse Ox 93 03/26/25 07:25 O2 Del Method Room Air 03/26/25 07:25 03/25/25 03/26/25 03/26/25 22:59 06:59 14:59 Intake Total 530 / 1580 50 / 1630 360 / 360 Output Total 400 / 400 300 / 700 300 / 300 Balance 130 / 1180 -250 / 930 60 / 60 Weight last 48 hrs Weight 189 lb 6.4 oz Weight 190 lb Physical Exam 2 Narrative: Chest: Unlabored breathing room air. No lymphadenopathy. Heart: Regular rate and rhythm. Abdomen: Soft, nontender, nondistended. No masses or lymphadenopathy. Data 03/26/25 04:39 03/26/25 04:39 A&P Assessment and plan 1. PUD (peptic ulcer disease): 2. Cholelithiasis: Plan: 59-year-old male who presented with epigastric pain. Most consistent with peptic ulcer disease. Started Protonix and today he is pain-free. From a surgical perspective okay to discharge. Follow-up in 2 weeks. PDMP PDMP Reviewed: Not Reviewed Attestations 2 Medical Necessity Statement*: N/A Coding Level of Care Code 97413 Diagnoses PUD (peptic ulcer disease) K27.9 Cholelithiasis K80.20
== END 2025-03-26 11:55 | disposition home or self-care (01) ==
LOC: ER 07:24 → MEDSURG 11:48
PROVIDERS: Admitting Provider Internal Medicine; Emergency Provider Family Medicine; PCP Physician Assistant; Visit Provider Internal Medicine
DX: K80.20 Calculus of gallbladder without cholecystitis without obstruction (principal); K27.9 Peptic ulcer, site unspecified, unspecified as acute or chronic, without hemorrhage or perforation; K04.7 Periapical abscess without sinus; I10 Essential (primary) hypertension; I25.10 Atherosclerotic heart disease of native coronary artery without angina pectoris; K21.9 Gastro-esophageal reflux disease without esophagitis; I25.2 Old myocardial infarction; Z95.5 Presence of coronary angioplasty implant and graft; J45.998 Other asthma
CPT/HCPCS: 36415; 71045; 74176; 76705; 80053; 81001; 83690; 84484; 85025; 93005; 93308; 96365; 96372; 96375; 96376; 99285; G0378; J1650; J2270; J2405; J2470; J2543; J7030; J9999

== ENCOUNTER → 2025-04-15 12:17 | Outpatient (BNVA) | payer MEDICAID, SELFPAY | PROVIDERS: PCP Physician Assistant; Visit Provider Internal Medicine | DX: J44.9 Chronic obstructive pulmonary disease, unspecified (principal); T78.40XA Allergy, unspecified, initial encounter; X58.XXXA Exposure to other specified factors, initial encounter | CPT/HCPCS: 36415; 85025; 86003 ==

== ENCOUNTER 2025-05-02 12:39 | Outpatient (CLI) | payer MEDICAID, SELFPAY ==
[2025-05-02 12:57] VITALS: PULSE 74; RESP 18; O2SAT 98
== END 2025-05-02 12:40 | disposition home or self-care (01) ==
LOC: RT 12:40
PROVIDERS: PCP Physician Assistant; Visit Provider Internal Medicine
DX: J44.9 Chronic obstructive pulmonary disease, unspecified (principal)
CPT/HCPCS: 94060; 94726; 94729; J7613